=== PATIENT | male | born 1965 | race Caucasian/White ===

== ENCOUNTER 2022-09-28 15:00 | Inpatient (IN) | payer MEDICARE, OTHER ==
[2022-09-28] MEDS ORDERED: SODIUM CHLORIDE 0.9% 1,000 ML IV STA (15:03)
[2022-09-28] MEDS ORDERED: MIDAZOLAM 1 MG/ML 5 ML VIAL IV STA (15:14)
[2022-09-28] MEDS ORDERED: ROCURONIUM 10 MG/ML (5 ML VIAL) IV STA (15:15)
[2022-09-28] MEDS ORDERED: ETOMIDATE 2 MG/ML 10 ML VIAL IVP STA (15:15)
[2022-09-28] MEDS ORDERED: NOREPINEPHRINE 4 MG in SODIUM CHLORIDE 0.9% 250 ML IV ONE ×2 (15:21→21:05)
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
[2022-09-28 15:22] LABS: Basophils # (A) 0.1 k/uL (0-0.2); Basophils % (A) 1 %; Eosinophils # (A) 0.2 k/uL (0-0.7); Eosinophils % (A) 2 %; HCT 45.5 % (39.0-53.0); HGB 14.8 gm/dL (13.0-17.5); Lymphocytes # (A) 2.3 k/uL (1.0-4.8); Lymphocytes % (A) 26 %; MCH 31.9 pg (25.0-35.0); MCHC 32.6 g/dL (31.0-37.0); MCV 97.8 fL (80.0-100.0); Mean Platelet Volume 9.6; Monocytes # (A) 0.6 k/uL (0-1.0); Monocytes % (A) 6 %; Neutrophils # (A) 5.7 k/uL (1.3-7.7); Neutrophils % (A) 64 %; Platelet Count 194 k/uL (150-450); RBC 4.65 m/uL (4.30-5.90); RDW 13.1 % (11.5-15.5)
[2022-09-28] MEDS ORDERED: fentaNYL (PF) 50 MCG/ML 2 ML AMP IVP STA (15:37)
[2022-09-28 15:38] LABS: Prothrombin Time 10.8 sec (9.0-12.0)
[2022-09-28 15:41] LABS: Appearance,Urine Clear (Clear); Bilirubin,Urine Negative (Negative); Blood,Urine Negative (Negative); Color,Urine Yellow; Glucose,Urine (UA) Negative (Negative); Hyaline Casts,Urine 1 /lpf (0-2); Ketones,Urine Negative (Negative); Leukocyte Esterase,Urine Negative (Negative); Mucus,Urine Rare /hpf; Nitrite,Urine Negative (Negative); Protein,Urine 2+ (Negative); RBC,Urine 3 /hpf (0-5); Specific Gravity,Urine 1.016 (1.001-1.035); WBC,Urine 1 /hpf (0-5)
[2022-09-28 15:45] LABS: ALT 21 U/L (4-49); AST 26 U/L (17-59); African American GFR (CKD) 28 (>60 ml/min/1.73 sqM); Albumin 4.2 g/dL (3.5-5.0); Alkaline Phosphatase 81 U/L (38-126); Anion Gap 12 mmol/L; Blood Urea Nitrogen 33 mg/dL (9-20); Calcium 9.2 mg/dL (8.4-10.2); Carbon Dioxide 23 mmol/L (22-30); Chloride 102 mmol/L (98-107); Creatine Kinase 116 U/L (55-170); Glucose 133 mg/dL (74-99); Magnesium 1.2 mg/dL (1.6-2.3); Non-African American GFR(CKD) 24 (>60 ml/min/1.73 sqM); Potassium 5.5 mmol/L (3.5-5.1); Sodium 137 mmol/L (137-145); Total Bilirubin 0.9 mg/dL (0.2-1.3); Total Protein 6.6 g/dL (6.3-8.2)
--- NOTE | 2022-09-28 15:46 | XR ---
EXAMINATION TYPE: XR chest 1V portable DATE OF EXAM: 09/28/2022 COMPARISON: Prior chest and rib x-rays 2012 HISTORY: Shortness of breath had to be intubated. TECHNIQUE: Single frontal supine view of the chest is obtained. FINDINGS: There is new orogastric tube projecting below diaphragm. There is new endotracheal tube te rminating at superior aortic knob level approximately 4.0 cm above the keily. Lungs remain clear. Ca rdiac silhouette size remains within normal limits. There is subacute or old left lateral eighth rib fracture now seen. IMPRESSION: 1. New endotracheal and orogastric tubes are satisfactory in position. 2. No acute cardiopulmonary process.
[2022-09-28] MEDS ORDERED: DEXTROSE 50% SYRINGE 50 ML IVP ONE (15:47)
[2022-09-28] MEDS ORDERED: CALCIUM GLUCONATE IN NACL 1 GM in SALINE 1 100ML.BAG IVPB ONE (15:47)
[2022-09-28] MEDS ORDERED: INSULIN REGULAR 100 UNIT/ML VIAL (IV) IV ONE (15:47)
[2022-09-28 15:51] LABS: Amphetamine Screen,Urine Not Detected (NotDetected); Barbiturate Screen,Urine Not Detected (NotDetected); Benzodiazepines Screen,Urine Detected (NotDetected); Cocaine Screen,Urine Not Detected (NotDetected); Methadone Screen, Urine Not Detected (NotDetected); Opiate Screen,Urine Not Detected (NotDetected); Oxycodone Screen, Urine Not Detected (NotDetected); Phencyclidine Screen,Urine Not Detected (NotDetected); Tricyclic Antidepressant,Urine Detected (NotDetected); Urn Cannabinoid Scrn Detected (NotDetected)
--- NOTE | 2022-09-28 15:59 | CT ---
EXAMINATION TYPE: CT brain wo con CT DLP: 1070.4 mGycm, Automated exposure control for dose reduction was used. DATE OF EXAM: 09/28/2022 3:52 PM COMPARISON: None. CLINICAL INDICATION:Male, 57 years old with history of Neuro deficit, acute, stroke suspected, ams, u nresponsive TECHNIQUE: Brain: Axial CT images of the brain were obtained with coronal and sagittal reformats created and rev iewed. Contrast used: None. Oral contrast used: None. FINDINGS: Brain: Extra-axial spaces: No abnormal extra-axial fluid collections. Ventricular system: Within normal limits Cerebral parenchyma: There is vasogenic edema involving the left parietal region with cytotoxic edema involving the left frontal lobe. Additional vasogenic edema within the right frontal lobe. There is hyperdense gyriform cortex of the left parietal region and to a lesser extent the left frontal region . The remainder of the tam-white junctions are well differentiated. Cerebellum: Unremarkable. Mass effect: No evidence of midline shift. Intracranial vasculature: Atherosclerotic calcifications of the intracranial vessels. Soft tissues: Normal. Calvarium/osseous structures: No depressed skull fracture. Paranasal sinuses and mastoid air cells: Mild scattered paranasal sinus disease. Visualized orbits: Orbital contents are intact. IMPRESSION: Findings suggest acute/subacute CVA involving the left frontal, left parietal and possibly the right frontal lobes. 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 Furthe r evaluation with MRI is recommended.
[2022-09-28 16:06] LABS: Partial Thromboplastin Time 21.2 sec (22.0-30.0)
[2022-09-28] MEDS ORDERED: DOPamine DRIP 800 MG in DEXTROSE/WATER 1 250ML.BAG IV ONE ×2 (16:48→21:07)
[2022-09-28] MEDS ORDERED: NALOXONE 0.4 MG/ML 1 ML VIAL IV PRN (16:58)
[2022-09-28] MEDS: MAGNESIUM SULFATE-D5W PMX 1 GM in DEXTROSE/WATER 1 100ML.BAG IVPB SCH ×2 (17:41→19:35)
--- NOTE | 2022-09-28 18:35 | XR ---
EXAMINATION TYPE: XR chest 1V confirm line [facility] DATE OF EXAM: 09/28/2022 HISTORY: Shortness of breath. COMPARISON: 09/28/2022 TECHNIQUE: Single view of the chest is submitted. FINDINGS: Endotracheal tube and NG tube are unchanged in position. Right IJ central venous line with its distal tip overlying the SVC. No evidence for pneumothorax. Increased density at the lung bases may reflect atelectasis or developing infiltrate. The heart is stable. Hilar and mediastinal structures are within normal limits. Degenerative changes are seen of the dorsal spine. IMPRESSION: 1. Indwelling tubes and catheters as noted.
[2022-09-28 18:57] LABS: Glucose,Whole Blood 193 mg/dL (70-110)
--- NOTE | 2022-09-28 19:37 | XR ---
EXAMINATION TYPE: XR chest 1V portable DATE OF EXAM: 09/28/2022 COMPARISON: Same day study HISTORY: SOB, Follow Up FINDINGS: Indwelling tubes and catheters are unchanged. The lungs appear to be clear at this time. Stable appearance of the cardio-mediastinal structures at this time. IMPRESSION: 1. Stable portable chest. Clinical correlation and follow up until resolution is recommended.
[2022-09-28] MEDS ORDERED: DEXAMETHASONE SOD PHOSPHATE 4 MG/ML 1 ML VIAL IVP PRN (19:42)
[2022-09-28] MEDS ORDERED: ATROPINE SULFATE 0.1 MG/ML 10ML SYRINGE ONE (20:07)
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
[2022-09-28 20:22] LABS: ABG Base Excess -1.3 mmol/L; ABG HCO3 24 mmol/L (21-25); ABG Oxygen Saturation 99.6 % (94-97); ABG PCO2 44 mmHg (35-45); ABG PH 7.35 (7.35-7.45); ABG PO2 >400 mmHg (83-108); ABG TCO2 26 mmol/L (19-24); Allen Test Performed? Yes
[2022-09-28 20:49] LABS: Basophils # (A) 0.1 k/uL (0-0.2); Basophils % (A) 1 %; Eosinophils # (A) 0.4 k/uL (0-0.7); Eosinophils % (A) 3 %; HGB 15.7 gm/dL (13.0-17.5); Lymphocytes # (A) 2.2 k/uL (1.0-4.8); Lymphocytes % (A) 19 %; MCH 32.5 pg (25.0-35.0); MCHC 33.3 g/dL (31.0-37.0); MCV 97.3 fL (80.0-100.0); Monocytes # (A) 0.7 k/uL (0-1.0); Monocytes % (A) 6 %; Neutrophils # (A) 7.9 k/uL (1.3-7.7); Neutrophils % (A) 69 %; Platelet Count 201 k/uL (150-450); RBC 4.83 m/uL (4.30-5.90); RDW 13.2 % (11.5-15.5); WBC 11.3 k/uL (3.8-10.6)
[2022-09-28 21:01] LABS: ALT 19 U/L (4-49); AST 27 U/L (17-59); African American GFR (CKD) 32 (>60 ml/min/1.73 sqM); Albumin 4.4 g/dL (3.5-5.0); Alkaline Phosphatase 78 U/L (38-126); Anion Gap 10 mmol/L; Blood Urea Nitrogen 35 mg/dL (9-20); Calcium 9.4 mg/dL (8.4-10.2); Carbon Dioxide 23 mmol/L (22-30); Chloride 103 mmol/L (98-107); Glucose 152 mg/dL (74-99); Magnesium 2.2 mg/dL (1.6-2.3); Non-African American GFR(CKD) 28 (>60 ml/min/1.73 sqM); Phosphorus 4.6 mg/dL (2.5-4.5); Potassium 4.5 mmol/L (3.5-5.1); Sodium 136 mmol/L (137-145); Total Protein 6.9 g/dL (6.3-8.2)
[2022-09-28 21:03] LABS: INR 0.9 (<1.2); Partial Thromboplastin Time 24.1 sec (22.0-30.0); Prothrombin Time 10.1 sec (9.0-12.0)
[2022-09-28] MEDS ORDERED: ATROPINE SULFATE 0.1 MG/ML 10ML SYRINGE IV ONE (21:04)
[2022-09-28] MEDS ORDERED: LIDOCAINE 1% INJ 10MG/ML (20 ML MDV) ONE (21:04)
[2022-09-28] MEDS ORDERED: LIDOCAINE 1% INJ 10MG/ML (5 ML VIAL-PF) SQ ONE (21:15)
[2022-09-28] MEDS ORDERED: SODIUM CHLORIDE 0.9% 1,000 ML IV ONE (21:17)
[2022-09-28] MEDS: CHLORHEXIDINE GLUCONATE 15 ML CUP MUCOUS MEM SCH (21:28)
[2022-09-28] MEDS ORDERED: LIDOCAINE 1% INJ 10MG/ML (20 ML MDV) SQ ONE (21:33)
[2022-09-28] MEDS: SODIUM CHLORIDE 0.9% 80 ML with fentaNYL (PF) 1,000 MCG IV SCH ×2 (22:30)
--- NOTE | 2022-09-28 22:51 | CONS ---
CONSULTATION HISTORY OF PRESENT ILLNESS: Mitch is a 57-year-old gentleman with history of alcohol abuse, prior history of smoking, who presented to hospital having being brought in by his family. He normally gets around using the cane and sometimes a wheelchair. Apparently, short-term memory is not good. He has significant history of alcohol abuse. His son's girlfriend went to check on him today, found him slumped over, unresponsive, not feeling well. Family has not seen him at 6 p.m. the day before. At that time, he was fine. It is unclear if the patient has taken too many of his medications. EMS was called. They found him to be profoundly hypotensive at 76/38 and the heart rate was low at 30 beats per minute. He came to the ER where he had external pacing on and initially was started on Levophed, which brought his blood pressure up. I evaluated him in the emergency room. Without the external pacer, the heart rate was in the 40 beats per minute and he was maintaining his own blood pressure. I picked him on 2.5 mcg of dopamine and asked him to use Levophed as needed. Subsequently, I received a phone call from the ICU stating that the patient's heart rate was persistently dropping into the 30s and the patient was significantly hypotensive. Due to this, I decided to do a temporary transvenous pacemaker on him. He received 1 mg of atropine by the time I arrived in the ICU and he is in junctional rhythm with a heart rate of 50 beats per minute. His blood pressure is well maintained on dopamine at 10 mcg. On dropping the dopamine 7.5 to 5 mcg, he is becoming bradycardic and hypotensive. A CT scan of the head revealed acute CVA involving left frontal, parietal and to some extent the right frontal lobe. This is suggestive of left hemispheric infarct. His EKG shows sinus bradycardia with a heart rate of 36 beats per minute and prolonged QT interval. His labs showed that the potassium is 5.5, BUN is 33, creatinine is 2.7, hemoglobin is 14.8. His drug screen is positive for tricyclic antidepressants, benzodiazepines and marijuana. I spoke to the family in the ICU and told him that I will attempt to do a temporary transvenous pacemaker. They understand that his prognosis is very poor. PHYSICAL EXAMINATION: GENERAL: At the time of my evaluation, the patient is intubated and on vent. VITAL SIGNS: Heart rate is around 52 beats per minute. Blood pressure is 140s/70. CHEST: Reveals diminished air entry bilaterally. HEART: Reveals first and second heart sounds. No gallop. I do not hear any murmurs. ABDOMEN: Soft. EXTREMITIES: Exam of extremities reveals mild edema. Peripheral pulses are not easily palpable. ASSESSMENT AND PLAN: 1. Large cerebrovascular accident. 2. Vent requiring respiratory failure. 3. Symptomatic bradycardia. PLAN: I am going to do a temporary transvenous pacemaker. Continue the dopamine at this time. Prognosis is poor. I will obtain a 2D echo in the morning. I spoke to the patient's daughter and son, and explained to them the patient's condition. The patient at home was on multiple medications including clonidine, Tenormin, metformin, allopurinol, lisinopril, atorvastatin, temazepam, Seroquel and cyclobenzaprine and [place]. It is unclear what if any of these medications he has taken. MMODL / IJN: [id number] /
--- NOTE | 2022-09-28 22:57 | CC ---
CARDIAC CATHETERIZATION REPORT PROCEDURE PERFORMED: Temporary transvenous pacemaker. INDICATION: Symptomatic bradycardia. PROCEDURE NOTE: After obtaining informed consent, a temporary transvenous pacemaker was floated into the right ventricle via the right femoral vein. The right femoral venous access was obtained using Seldinger technique, and a 6-Mongolian sheath was placed and temporary transvenous pacemaker was floated under fluoroscopic guidance uneventfully. Adequate pacing and sensing thresholds were obtained. Procedure was completed uneventfully. PROCEDURE PERFORMED: Femoral arterial line placement. INDICATION: To monitor blood pressures in a critically ill patient. PROCEDURE NOTE: After obtaining informed consent, right femoral arterial access was obtained using Seldinger technique. A 6-Mongolian sheath was placed. The femoral arterial line will be used for hemodynamics monitoring. MMODL / IJN: [id number] /
[2022-09-29] MEDS ORDERED: SODIUM CHLORIDE 0.9% 1,000 ML IV ONE ×3 (01:58→08:52)
[2022-09-29] MEDS: SODIUM CHLORIDE 0.9% 1,000 ML IV SCH ×2 (02:00→17:31)
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
[2022-09-29] MEDS ORDERED: LORazepam 2 MG/ML INJ ONE (03:39)
[2022-09-29] MEDS ORDERED: levETIRAcetam IV 500 MG/5 ML VIAL IVP STA ×2 (03:53→17:25)
[2022-09-29 04:43] LABS: Basophils # (A) 0.1 k/uL (0-0.2); Basophils % (A) 1 %; Eosinophils # (A) 0.2 k/uL (0-0.7); Eosinophils % (A) 2 %; HCT 43.4 % (39.0-53.0); HGB 14.6 gm/dL (13.0-17.5); Lymphocytes # (A) 2.1 k/uL (1.0-4.8); Lymphocytes % (A) 19 %; MCH 31.6 pg (25.0-35.0); MCHC 33.6 g/dL (31.0-37.0); MCV 94.1 fL (80.0-100.0); Mean Platelet Volume 9.8; Monocytes # (A) 0.8 k/uL (0-1.0); Monocytes % (A) 7 %; Neutrophils # (A) 7.8 k/uL (1.3-7.7); Neutrophils % (A) 70 %; Platelet Count 185 k/uL (150-450); RBC 4.61 m/uL (4.30-5.90); RDW 13.5 % (11.5-15.5)
[2022-09-29 04:50] LABS: African American GFR (CKD) 50 (>60 ml/min/1.73 sqM); Anion Gap 9 mmol/L; Blood Urea Nitrogen 30 mg/dL (9-20); Calcium 8.7 mg/dL (8.4-10.2); Carbon Dioxide 21 mmol/L (22-30); Chloride 108 mmol/L (98-107); Glucose 107 mg/dL (74-99); Non-African American GFR(CKD) 43 (>60 ml/min/1.73 sqM); Potassium 4.1 mmol/L (3.5-5.1); Sodium 138 mmol/L (137-145)
[2022-09-29 06:10] LABS: Glucose,Whole Blood 108 mg/dL (70-110)
[2022-09-29 06:36] LABS: ABG HCO3 22 mmol/L (21-25); ABG Oxygen Saturation 99.1 % (94-97); ABG PCO2 39 mmHg (35-45); ABG PH 7.37 (7.35-7.45); ABG PO2 146 mmHg (83-108); ABG TCO2 24 mmol/L (19-24); Allen Test Performed? Yes
--- NOTE | 2022-09-29 07:12 | XR ---
EXAMINATION TYPE: XR chest 1V portable DATE OF EXAM: 09/29/2022 5:44 AM COMPARISON: Chest radiographs from 09/28/2022 TECHNIQUE: XR chest 1V portable Frontal view of the chest. CLINICAL INDICATION:Male, 57 years old with history of Tube placement; FINDINGS: Lungs/Pleura: There is no evidence of pleural effusion, focal consolidation, or pneumothorax. Pulmonary vascularity: Unremarkable. Heart/mediastinum: Cardiomediastinal silhouette is unremarkable. Musculoskeletal: No acute osseous pathology. Other findings: None Lines/Tubes: Endotracheal tube with distal tip 5.8 cm above the keily. Nasogastric tube with its distal tip and side-port projecting under the diaphragm. Right internal jugular central venous catheter with distal tip at the cavoatrial junction. IMPRESSION: Support tubes and line in satisfactory position.
[2022-09-29] MEDS: PANTOPRAZOLE 40 MG/10 ML VIAL IV SCH (08:15)
[2022-09-29] MEDS: CHLORHEXIDINE GLUCONATE 15 ML CUP MUCOUS MEM SCH ×2 (08:15→20:45)
[2022-09-29] MEDS: HEPARIN SODIUM,PORCINE/PF 5,000 UNIT/0.5 ML SYRINGE SQ SCH ×2 (08:15→20:46)
[2022-09-29 08:43] LABS: LDL Cholesterol,Calculated 27.3 mg/dL (0.0-131.0)
--- NOTE | 2022-09-29 09:13 | US ---
EXAMINATION TYPE: US carotid duplex BILAT DATE OF EXAM: 09/29/2022 Exam done portable in ICU COMPARISON: NONE CLINICAL INDICATION: Male, 57 years old with history of CVA; TECHNIQUE: Carotid duplex ultrasound examination. Indirect Doppler criteria was utilized. FINDINGS: EXAM MEASUREMENTS: RIGHT: Peak Systolic Velocity (PSV) cm/sec ----- Right CCA: 66.4 ----- Right ICA: 105.9 ----- Right ECA: 66.9 ICA/CCA ratio: 1.6 RIGHT: End Diastole cm/sec ----- Right CCA: 10.4 ----- Right ICA: 25.5 ----- Right ECA: 5.4 LEFT: Peak Systolic Velocity (PSV) cm/sec ----- Left CCA: 50.4 ----- Left ICA: 98.8 ----- Left ECA: 137.3 ICA/CCA ratio: 2.0 LEFT: End Diastole cm/sec ----- Left CCA: 10.0 ----- Left ICA: 30.9 ----- Left ECA: 21.6 VERTEBRALS (direction of flow): Right Vertebral: Antegrade Left Vertebral: Antegrade Rhythm: Normal Right bulb and proximal ICA and ECA obscured by bandage Left ICA/CCA ratio: 2.0 IMPRESSION: Less than 50% stenosis of the bilateral carotid bifurcations. Criteria for Assigning % of Stenosis / Diameter reduction (Estimation based on the indirect measurements of the internal carotid artery velocities (ICA PSV). 1. Normal (no stenosis)=ICA PSV < 125 cm/s: ratio < 2.0: ICA EDV<40 cm/s. 2. Less than 50% stenosis=ICA PSV < 125 cm/s: ratio < 2.0: ICA EDV<40 cm/s. 3. 50 to 69% stenosis=ICA PSV of 125 to 230 cm/s: ration 2.0 ? 4.0: ICA EDV 40-100 cm/s. 4. Greater than 70% stenosis to near occlusion= ICA PSV > 230 cm/s: ratio > 4.0: ICA EDV > 100 cm/s. 5. Near occlusion= ICA PSV velocities may be low or undetectable: variable ratio and ICA EDV. 6. Total occlusion=unable to detect flow.
--- NOTE | 2022-09-29 09:35 | PN ---
PROGRESS NOTE SUBJECTIVE: Mitch is a 57-year-old gentleman who is admitted to hospital with CVA, symptomatic bradycardia, and respiratory failure. He is intubated and on vent. Last night developed symptomatic bradycardia and underwent temporary transvenous pacemaker. This morning, the pacemaker is functioning normally and he is still using the pacemaker quite a bit. I decreased the heart rate to 50 beats per minute. I also placed a right femoral arterial catheter for blood pressure monitoring. He had a seizure which is currently being managed by the neurologist. OBJECTIVE: GENERAL: He is intubated on vent, sedated. VITAL SIGNS: Stable. CHEST: Exam reveals good air entry bilaterally. HEART: Exam reveals first and second heart sounds. No gallop. No murmur. ABDOMEN: Soft. EXTREMITIES: Did not reveal any edema. Peripheral pulses are not palpable. LABORATORY DATA: Labs show that his blood gases show a pH of 7.3, pO2 of 146, pCO2 of 59. His potassium had come down to 4.1, BUN is 30, creatinine is 1.7. Creatinine has improved compared to where we were. ASSESSMENT: 1. Vent requiring respiratory failure. 2. Cerebrovascular accident. 3. History of ETOH abuse and prior history of drug abuse. 4. Symptomatic bradycardia. PLAN: The patient will continue with the temporary transvenous pacemaker. Prognosis is guarded. If he improves in his stroke symptoms and if his clinical condition gets better, we may consider doing a transesophageal echo. We will follow the echo results that were done this morning. NOLVIA / NATHALIEN: [id number] /
--- NOTE | 2022-09-29 09:51 | CA ---
Transthoracic Echo Report Name: Mitch Marrero Age: 57 Gender: M : 1965 Exam Date: 09/29/2022 08:28 Exam Location: [facility] Ht (in): Wt (lb): Ordering Physician: Cash Trammell MD Attending/Referring Phys: Sleeve Maker Dean Rasmussen Procedure CPT: Indications: CVA Cardiac Hx: Technical Quality: Technically difficult study Contrast 1: Total Dose (mL): Contrast 2: Total Dose (mL): MEASUREMENTS (Male / Female) Normal Values 2D ECHO LV Diastolic Diameter PLAX 4.9 cm 4.2 - 5.9 / 3.9 - 5.3 cm LV Systolic Diameter PLAX 3.5 cm IVS Diastolic Thickness 1.1 cm 0.6 - 1.0 / 0.6 - 0.9 cm LVPW Diastolic Thickness 1.1 cm 0.6 - 1.0 / 0.6 - 0.9 cm LV Relative Wall Thickness 0.4 RV Internal Dim ED PLAX 2.8 cm LVOT Diameter 2.0 cm Aortic Root Diameter 2.8 cm LA Systolic Diameter LX 2.5 cm 3.0 - 4.0 / 2.7 - 3.8 cm LV Diastolic Volume MOD BP 55.4 cm??? 67 - 155 / 56 - 104 cm??? LV Systolic Volume MOD BP 23.5 cm??? 22 - 58 / 19 - 49 cm??? LV Ejection Fraction MOD BP 57.6 % >= 55 % LV Diastolic Volume MOD 4C 79.2 cm??? LV Systolic Volume MOD 4C 34.4 cm??? LV Ejection Fraction MOD 4C 56.5 % LV Diastolic Length 4C 6.9 cm LV Systolic Length 4C 6.5 cm LV Diastolic Volume MOD 2C 35.6 cm??? LV Systolic Volume MOD 2C 14.0 cm??? LV Ejection Fraction MOD 2C 60.6 % LV Diastolic Length 2C 6.3 cm LV Systolic Length 2C 5.7 cm LA Volume 41.3 cm??? 18 - 58 / 22 - 52 cm??? DOPPLER AV Peak Velocity 127.8 cm/s AV Peak Gradient 6.5 mmHg LVOT Peak Velocity 81.4 cm/s LVOT Peak Gradient 2.7 mmHg AV Area Cont Eq pk 2.1 cm??? FINDINGS Left Ventricle Ventricular septal hypokenesis. Normal LV size, Normal wall thickness, left ventricular ejection fraction is estimated at 50-55 %. Right Ventricle Normal right ventricular size. Right Atrium Normal right atrial size. Left Atrium Normal left atrial size. Mitral Valve Structurally normal mitral valve. Trace MR. Aortic Valve Aortic valve not well visualized. No aortic valve stenosis or regurgitation. Tricuspid Valve Structurally normal tricuspid valve. Trace TR. Pulmonic Valve Pulmonic valve not well visualized. No pulmonic regurgitation. Pericardium Normal pericardium. Aorta Aorta at the level of the sinotubular junction normal. CONCLUSIONS Scanned Supine. Paced rhythm preserved LV systolic function. Limited Doppler study no significant abnormalities. No pericardial effusion Previewed by: Dr. Jennifer Hays MD (Electronically Signed) Final Date: 29 September 2022 09:50
[2022-09-29 11:14] LABS: Glucose,Whole Blood 98 mg/dL (70-110)
[2022-09-29] MEDS: NOREPINEPHRINE 4 MG in SODIUM CHLORIDE 0.9% 250 ML IV SCH (15:00)
--- NOTE | 2022-09-29 15:41 | P.PN ---
Subjective Progress Note Date: 09/29/22 I'm seeing the patient for the first time during this admission. Please refer to Dr. Trammell's note for further details. It seems the patient was found unresponsive hypotensive and was felt to have hypoxic ischemic encephalopathy. Also was found the patient was to have acute ischemic stroke with left hemispheric region mainly involving watershed territory. Overnights around 3:30 AM per the nurse the was felt he had seizure-like activity left side more than the right side was shaken and the patient was placed on the Keppra by Dr. Trammell. Per the nurse no further seizure-like activity noted that. Patient is intubated on a ventilator and is on IV propofol and fentanyl Objective - Vital Signs Vital signs: Vital Signs Temp 98.1 F 09/29/22 12:00 Pulse 49 L 09/29/22 15:00 Resp 16 09/29/22 15:00 BP 103/62 09/28/22 22:51 Pulse Ox 99 09/29/22 15:00 FiO2 40 09/29/22 14:00 Intake & Output 09/28/22 09/29/22 09/29/22 18:59 06:59 18:59 Intake Total 15.070 9207.808 8453.465 Output Total 925 1125 Balance 15.070 514.080 902.465 Weight 71.668 kg 77 kg 77.1 kg Intake: IV 1105 1815 0.9 KVO 70 90 ARTERIAL LINE 27 27 CVP 27 24 Magnesium Sulfate-D5w Pmx 100 1 gm In Dextrose/Water 1 100ml.bag @ 100 mls/hr IVPB Q1H [facility] Rx#: [id number] Sodium Chloride 0.9% 1, 375 675 000 ml @ 75 mls/hr IV . [id number] [facility] Rx#:[id number] Sodium Chloride 0.9% 1, 999 000 ml @ 999 mls/hr IV . Q1H1M [facility] Rx#:[id number] Intake, IV Titration 15.070 334.080 212.465 Amount DOPamine DRIP 800 mg In 32.043 Dextrose/Water 1 250ml. bag @ 5 MCG/KG/MIN 6.719 mls/hr IV .Q24H [facility] Rx#: [id number] Norepinephrine 4 mg In 7.509 75.867 37.956 Sodium Chloride 0.9% 250 ml @ 0.03 MCG/KG/MIN 8. 192 mls/hr IV .Q24H [facility] Rx#:[id number] propofoL 1,000 mg In 7.561 226.170 174.509 Empty Bag 1 bag @ 15 MCG/ KG/MIN 6.45 mls/hr IV . [id number] [facility] Rx#:[id number] Output: Gastric Drainage 600 Urine 925 525 Other: Voiding Method Indwelling Catheter Indwelling Catheter ABP, PAP, CO, CI - Last Documented Arterial Blood Pressure 104/46 - Exam General: Laying in bed and does not appear in acute distress Lung: Intubated on ventilator. Neuro: Limited since on IV sedation (IV Propofol 50mcg/kg/min and IV fentanyl 0.5mcg/kg/hr). Pupils are 2mm and reactive to light. Primary gaze is midline. No facial droop. Intact gag reflex. Is breathing at vent. Strength is limited. - Labs CBC & Chem 7: 09/29/22 04:30 09/29/22 04:30 Labs: Abnormal Lab Results - Last 24 Hours (Table) 09/28/22 09/28/22 09/28/22 Range/Units 15:11 15:11 15:11 WBC (3.8-10.6) k/uL Neutrophils # (1.3-7.7) k/uL APTT 21.2 L (22.0-30.0) sec ABG pO2 (83-108) mmHg ABG Total CO2 (19-24) mmol/L ABG O2 Saturation (94-97) % Sodium (137-145) mmol/L Potassium 5.5 H (3.5-5.1) mmol/L Chloride (98-107) mmol/L Carbon Dioxide (22-30) mmol/L BUN 33 H (9-20) mg/dL Creatinine 2.74 H (0.66-1.25) mg/dL Glucose 133 H (74-99) mg/dL POC Glucose (mg/dL) (70-110) mg/dL Phosphorus (2.5-4.5) mg/dL Magnesium 1.2 L (1.6-2.3) mg/dL Triglycerides (0.00-149.00) mg/dL HDL Cholesterol (40.00-60.00) mg/dL Urine Protein 2+ H (Negative) Urine Mucus Rare H (None) /hpf U Tricyclic Antidepress Detected H (NotDetected) U Benzodiazepines Scrn Detected H (NotDetected) U Marijuana (THC) Screen Detected H (NotDetected) 09/28/22 09/28/22 09/28/22 Range/Units 18:55 20:20 20:38 WBC (3.8-10.6) k/uL Neutrophils # (1.3-7.7) k/uL APTT (22.0-30.0) sec ABG pO2 >400 H (83-108) mmHg ABG Total CO2 26 H (19-24) mmol/L ABG O2 Saturation 99.6 H (94-97) % Sodium 136 L (137-145) mmol/L Potassium (3.5-5.1) mmol/L Chloride (98-107) mmol/L Carbon Dioxide (22-30) mmol/L BUN 35 H (9-20) mg/dL Creatinine 2.46 H (0.66-1.25) mg/dL Glucose 152 H (74-99) mg/dL POC Glucose (mg/dL) 193 H (70-110) mg/dL Phosphorus 4.6 H (2.5-4.5) mg/dL Magnesium (1.6-2.3) mg/dL Triglycerides (0.00-149.00) mg/dL HDL Cholesterol (40.00-60.00) mg/dL Urine Protein (Negative) Urine Mucus (None) /hpf U Tricyclic Antidepress (NotDetected) U Benzodiazepines Scrn (NotDetected) U Marijuana (THC) Screen (NotDetected) 09/28/22 09/29/22 09/29/22 Range/Units 20:38 04:30 04:30 WBC 11.3 H 11.0 H (3.8-10.6) k/uL Neutrophils # 7.9 H 7.8 H (1.3-7.7) k/uL APTT (22.0-30.0) sec ABG pO2 (83-108) mmHg ABG Total CO2 (19-24) mmol/L ABG O2 Saturation (94-97) % Sodium (137-145) mmol/L Potassium (3.5-5.1) mmol/L Chloride 108 H (98-107) mmol/L Carbon Dioxide 21 L (22-30) mmol/L BUN 30 H (9-20) mg/dL Creatinine 1.71 H (0.66-1.25) mg/dL Glucose 107 H (74-99) mg/dL POC Glucose (mg/dL) (70-110) mg/dL Phosphorus (2.5-4.5) mg/dL Magnesium (1.6-2.3) mg/dL Triglycerides 191.00 H (0.00-149.00) mg/dL HDL Cholesterol 28.50 L (40.00-60.00) mg/dL Urine Protein (Negative) Urine Mucus (None) /hpf U Tricyclic Antidepress (NotDetected) U Benzodiazepines Scrn (NotDetected) U Marijuana (THC) Screen (NotDetected) 09/29/22 Range/Units 06:32 WBC (3.8-10.6) k/uL Neutrophils # (1.3-7.7) k/uL APTT (22.0-30.0) sec ABG pO2 146 H (83-108) mmHg ABG Total CO2 (19-24) mmol/L ABG O2 Saturation 99.1 H (94-97) % Sodium (137-145) mmol/L Potassium (3.5-5.1) mmol/L Chloride (98-107) mmol/L Carbon Dioxide (22-30) mmol/L BUN (9-20) mg/dL Creatinine (0.66-1.25) mg/dL Glucose (74-99) mg/dL POC Glucose (mg/dL) (70-110) mg/dL Phosphorus (2.5-4.5) mg/dL Magnesium (1.6-2.3) mg/dL Triglycerides (0.00-149.00) mg/dL HDL Cholesterol (40.00-60.00) mg/dL Urine Protein (Negative) Urine Mucus (None) /hpf U Tricyclic Antidepress (NotDetected) U Benzodiazepines Scrn (NotDetected) U Marijuana (THC) Screen (NotDetected) Microbiology - Last 24 Hours (Table) 09/28/22 15:56 Gram Stain - Preliminary Sputum Assessment and Plan Assessment: * Patient found unresponsive, hypotensive, 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 Smaller area of acute ischemia also noticeable in the right frontal watershed region as well. Patient was not a TPA candidate because of last known well > 12 hours. * New onset reported Seizure (at [address]am on 09/26/2022) and was told has jerking of left > right arm--stable. 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 * EEG is pending * Carotid Doppler: Less than 50% stenosis bilateral carotid bifurcation. * 2-D echo: Reported as patient rhythm preserved left ventricular systolic function. Limited the Doppler study no significant abnormality. No pe ricardial effusion. * Fasting a.m. lipid panel: Triglyceride is 191, cholesterol is 94, LDLs 27 HDL is 28. * hemoglobin A1c: 6.0. * Suggest starting aspirin 81 mg daily, if no medical contraindications. * Neurology will follow clinically as well. * Other management as per critical care, IM and other specialties. UPDATE: Preliminary routine EEG: Is abnormal. The background slowing is suggestive of mild to moderate encephalopathy. No seizure or discharges are noted. The later in very late afternoon, Per nurse he had at least [address] head and lasted few minutes. So gave him total of 4mg Ativan and loaded with Keppra 1gm once, increased standing Keppra from 500mg to 1000mg every 12 hours. If continues to seizure, will give another 4mg Ativan and started Versed drip. I will repeat EEG for tomorrow and if has any further clinical seizures today and cannot be controlled then recommend transfer for senior care EEG. The plan was discussed with the patient's daughter was at bedside as well as her ICU nurse. Dr. Trammell will start neurology service tomorrow A.M. Time with Patient: Less than 30
[2022-09-29] MEDS ORDERED: levETIRAcetam IV 500 MG/5 ML VIAL IVP SCH (16:00)
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
--- NOTE | 2022-09-29 17:23 | CT ---
EXAMINATION TYPE: CT brain wo con DATE OF EXAM: 09/29/2022 COMPARISON: 09/28/2022 HISTORY: Stroke follow up CT DLP: 1201.[address] of the brain was performed. The ventricles, basal cisterns and sulci overlying the cerebral convexities demonstrate mild enlargem ent. Noted are areas of decreased attenuation within the left frontal parietal lobes compatible with acute /subacute CVA. Uniform hyperdensity process left parietal component. Small area of decreased attenuat ion right frontal lobe is also unchanged. There is no evidence for intracranial hemorrhage or sulcal effacement. There is decreased attenuation about the periventricular white matter and deep white matter of both c erebral hemispheres, compatible with chronic small vessel ischemia. Differential diagnosis does inclu de demyelination. No mass effects are seen.No midline shift. Osseous calvarium is intact. If symptoms persist consider MRI. IMPRESSION: 1. Evolution of left frontal lobe parietal acute/subacute CVA as discussed above. Small area of decre ased attenuation right frontal lobe noted as well is stable.
[2022-09-29] MEDS ORDERED: LORazepam 2 MG/ML INJ IV STA ×3 (17:24→17:50)
[2022-09-29] MEDS: SODIUM CHLORIDE 0.9% 80 ML with fentaNYL (PF) 1,000 MCG IV SCH ×2 (17:43)
[2022-09-29] MEDS: DOPamine DRIP 800 MG in DEXTROSE/WATER 1 250ML.BAG IV SCH ×2 (17:43→23:42)
[2022-09-29 18:16] LABS: Glucose,Whole Blood 95 mg/dL (70-110)
[2022-09-29] MEDS: MIDAZOLAM HCL 50 MG in SODIUM CHLORIDE 0.9% 40 ML IV SCH (18:22)
[2022-09-29] MEDS: levETIRAcetam IV 500 MG/5 ML VIAL IVP SCH (20:46)
--- NOTE | 2022-09-29 21:17 | EEG ---
ELECTROENCEPHALOGRAM REPORT EEG TYPE: A routine 21-channel EEG is performed with video using the 10/20 electrode placement system. RELEVANT MEDICATIONS: 1. Keppra. 2. IV propofol. 3. IV fentanyl. DESCRIPTION: The patient is intubated on a ventilator. The background consists of low voltage of 6 to 7 hertz activity. There is no physiological stage 2 sleep architecture. There is no focal slowing. Interictal and ictal is none. ACTIVATION PROCEDURE: Photic stimulation did not evoke a posterior driving response. There is no abnormality during the photic stimulation. Hyperventilation is not performed. CLINICAL INTERPRETATION: This is an abnormal routine EEG. The background slowing is suggestive of mild-to- moderate encephalopathy likely due to medication effect (propofol as well as fentanyl). Otherwise, there is no focal slowing, epileptiform discharge, or seizure on the EEG. Clinical correlation is recommended. NOLVIA / FRANDY: [id number] / MTDD
[2022-09-30 00:36] LABS: Glucose,Whole Blood 78 mg/dL (70-110)
[2022-09-30] MEDS: ACETAMINOPHEN IV (For NPO) 1,000 MG in EMPTY BAG 1 BAG IVPB PRN ×3 (01:40→21:00)
[2022-09-30] MEDS: MIDAZOLAM HCL 50 MG in SODIUM CHLORIDE 0.9% 40 ML IV SCH ×2 (02:31→17:04)
[2022-09-30] MEDS: SODIUM CHLORIDE 0.9% 1,000 ML IV SCH ×2 (04:01→17:05)
[2022-09-30 04:56] LABS: Basophils % (A) 0 %; Eosinophils # (A) 0.2 k/uL (0-0.7); Eosinophils % (A) 1 %; HGB 13.7 gm/dL (13.0-17.5); Lymphocytes # (A) 1.1 k/uL (1.0-4.8); Lymphocytes % (A) 8 %; MCH 31.7 pg (25.0-35.0); MCHC 33.3 g/dL (31.0-37.0); MCV 95.3 fL (80.0-100.0); Mean Platelet Volume 9.7; Monocytes # (A) 0.5 k/uL (0-1.0); Monocytes % (A) 4 %; Neutrophils # (A) 11.3 k/uL (1.3-7.7); Neutrophils % (A) 86 %; Platelet Count 157 k/uL (150-450); RDW 13.6 % (11.5-15.5); WBC 13.3 k/uL (3.8-10.6)
[2022-09-30 05:08] LABS: African American GFR (CKD) >90 (>60 ml/min/1.73 sqM); Anion Gap 9 mmol/L; Blood Urea Nitrogen 21 mg/dL (9-20); Calcium 8.4 mg/dL (8.4-10.2); Carbon Dioxide 19 mmol/L (22-30); Chloride 110 mmol/L (98-107); Glucose 86 mg/dL (74-99); Non-African American GFR(CKD) >90 (>60 ml/min/1.73 sqM); Potassium 4.1 mmol/L (3.5-5.1); Sodium 138 mmol/L (137-145)
[2022-09-30 05:47] LABS: ABG Base Excess -4.6 mmol/L; ABG HCO3 21 mmol/L (21-25); ABG PCO2 40 mmHg (35-45); ABG PH 7.34 (7.35-7.45); ABG PO2 79 mmHg (83-108); ABG TCO2 22 mmol/L (19-24)
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
[2022-09-30] MEDS: levETIRAcetam IV 500 MG/5 ML VIAL IVP SCH ×2 (08:57→20:26)
[2022-09-30] MEDS: HEPARIN SODIUM,PORCINE/PF 5,000 UNIT/0.5 ML SYRINGE SQ SCH ×2 (08:57→20:26)
[2022-09-30] MEDS: CHLORHEXIDINE GLUCONATE 15 ML CUP MUCOUS MEM SCH ×2 (08:57→20:26)
[2022-09-30] MEDS: PANTOPRAZOLE 40 MG/10 ML VIAL IV SCH (08:58)
[2022-09-30 11:50] LABS: Glucose,Whole Blood 121 mg/dL (70-110)
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
--- NOTE | 2022-09-30 14:17 | PN ---
PROGRESS NOTE HISTORY OF PRESENT ILLNESS: Mitch is a 57-year-old gentleman who was admitted to the hospital with CVA and vent requiring respiratory failure. Remains on vent without much significant spontaneous activity. Continues to have seizures on and off. He is intubated and sedated. He is in his own rhythm, is not requiring the use of temporary pacemaker. I am going to leave with him for now. PHYSICAL EXAMINATION: GENERAL: On exam, comfortable at rest. VITAL SIGNS: Stable. CHEST: Reveals diminished air entry at the bases. HEART: Reveals first and second heart sounds. No gallop. EXTREMITIES: Exam of extremities did not reveal any edema. LABORATORY DATA: Labs showed a hemoglobin of 13.7, potassium is 4.1, creatinine is 0.8. ASSESSMENT: 1. Vent requiring respiratory failure. 2. Symptomatic bradycardia, resolved. 3. Seizures. 4. Cerebrovascular accident. PLAN: The patient's prognosis is guarded. Continue with the supportive care. NOLVIA / FRANDY: [id number] /
[2022-09-30] MEDS: NOREPINEPHRINE 4 MG in SODIUM CHLORIDE 0.9% 250 ML IV SCH (17:03)
[2022-09-30] MEDS: CLEVIDIPINE BUTYRATE 25 MG in EMPTY BAG 1 BAG IV SCH ×3 (17:04→21:58)
[2022-09-30] MEDS: SODIUM CHLORIDE 0.9% 80 ML with fentaNYL (PF) 1,000 MCG IV SCH ×2 (20:21)
[2022-09-30] MEDS ORDERED: FUROSEMIDE 10 MG/ML 4 ML VIAL IV STA (21:10)
--- NOTE | 2022-09-30 22:54 | EEG ---
DATE OF SERVICE: 09/30/2022 ELECTROENCEPHALOGRAM REPORT PREAMBLE: This is a 57-year-old male who has history of altered mental status, CVA, and new onset seizure. This is a followup study. Current medication Keppra, midazolam, Protonix, propofol 60 mcg, titrating down just prior to the start of EEG and fentanyl. EEG FINDINGS: This is a 21-channel digital EEG recorded with video competent, utilizing 10/20 international system with referential and bipolar montages. Background consists of a presence of diffuse, low amplitude activity in mixed frequencies of theta in 6 to 7 hertz, mixed with delta range seen in bihemispheric region. There are periods of significant generalized suppression of the background periodically during the study. Response to eye opening or closing was not seen. No focal or generalized epileptiform activity was seen. IMPRESSION: This is an abnormal EEG due to background slowing and intermittent suppression suggestive of generalized encephalopathy, of moderate to severe degree. This can be seen with toxic metabolic causes, diffuse structural abnormality, or related to medication use. No epileptiform activity was seen in the entire study. When compared to the EEG from yesterday, the background seemed to be much more slow and more suppressed. MMODL / IJN: [id number] / [facility]
[2022-10-01] MEDS: CLEVIDIPINE BUTYRATE 25 MG in EMPTY BAG 1 BAG IV SCH ×8 (00:27→23:17)
[2022-10-01] MEDS: IPRATROPIUM-ALBUTEROL 3 ML NEB INHALATION PRN (00:33)
[2022-10-01] MEDS: HYDROmorphone 1 MG/ML 1 ML SYRINGE IVP PRN (00:35)
[2022-10-01] MEDS ORDERED: LORazepam 2 MG/ML INJ ONE (03:28)
[2022-10-01] MEDS ORDERED: LORazepam 2 MG/ML INJ IV STA ×2 (03:28→12:47)
[2022-10-01] MEDS: MIDAZOLAM HCL 50 MG in SODIUM CHLORIDE 0.9% 40 ML IV SCH ×6 (04:26→23:12)
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
[2022-10-01 05:37] LABS: ABG Base Excess -7.2 mmol/L; ABG HCO3 18 mmol/L (21-25); ABG Oxygen Saturation 94.8 % (94-97); ABG PCO2 32 mmHg (35-45); ABG PH 7.36 (7.35-7.45); ABG PO2 72 mmHg (83-108); ABG TCO2 19 mmol/L (19-24)
[2022-10-01 05:55] LABS: HCT 39.7 % (39.0-53.0); HGB 13.2 gm/dL (13.0-17.5); MCH 32.2 pg (25.0-35.0); MCHC 33.2 g/dL (31.0-37.0); Mean Platelet Volume 9.6; Platelet Count 141 k/uL (150-450); RBC 4.09 m/uL (4.30-5.90); RDW 13.5 % (11.5-15.5); WBC 14.7 k/uL (3.8-10.6)
[2022-10-01 05:58] LABS: African American GFR (CKD) >90 (>60 ml/min/1.73 sqM); Anion Gap 9 mmol/L; Blood Urea Nitrogen 17 mg/dL (9-20); Calcium 8.2 mg/dL (8.4-10.2); Carbon Dioxide 20 mmol/L (22-30); Chloride 111 mmol/L (98-107); Glucose 177 mg/dL (74-99); Non-African American GFR(CKD) >90 (>60 ml/min/1.73 sqM); Potassium 3.7 mmol/L (3.5-5.1); Sodium 140 mmol/L (137-145)
[2022-10-01 06:04] LABS: Glucose,Whole Blood 172 mg/dL (70-110)
[2022-10-01] MEDS: IPRATROPIUM-ALBUTEROL 3 ML NEB INHALATION SCH ×4 (08:05→20:22)
--- NOTE | 2022-10-01 08:35 | XR ---
EXAMINATION TYPE: XR chest 1V portable DATE OF EXAM: 09/28/2022 CLINICAL HISTORY: Difficulty breathing progress study. TECHNIQUE: Single AP portable semiupright view of the chest is obtained. COMPARISON: Chest x-ray from one day earlier and older studies. FINDINGS: Stable endotracheal and orogastric tubes. Stable right internal jugular central venous cat heter. Cardiac size stable and within normal limits. Worsening medial left basilar opacity. Stable patchy ri ght basilar opacity. There is old fracture of the left lateral eighth rib. IMPRESSION: Worsening medial left basilar acute infiltrate and/or atelectasis. Stable patchy right ba silar atelectasis and/or acute infiltrate.
[2022-10-01] MEDS: SODIUM CHLORIDE 0.9% 1,000 ML IV SCH ×2 (09:07→22:02)
--- NOTE | 2022-10-01 09:24 | P.PN ---
Subjective Progress Note Date: 09/30/22 Patient was seen for a follow-up. Patient is off Levophed and dopamine since this morning. Patient is on propofol 60 mcg/kg per minute in the morning, that was weaned down and was stopped 1 hour ago. Patient was on Versed 6 mg per hour in the morning. While EEG was performed, it was decreased to 30 mg per hour, which is still running. Patient also on fentanyl 0 point 5 in the morning, that was discontinued at 10 AM. No obvious seizure activity noted. Patient continues to be intubated, partly se dated as mentioned above. Objective - Vital Signs Vital signs: Vital Signs Temp 100.2 F H 09/30/22 12:00 Pulse 62 09/30/22 13:00 Resp 21 09/30/22 13:00 BP 103/62 09/28/22 22:51 Pulse Ox 95 09/30/22 13:00 FiO2 40 09/30/22 12:00 Intake & Output 09/29/22 09/30/22 09/30/22 18:59 06:59 18:59 Intake Total 2533.443 4342.112 0352.980 Output Total 1345 710 455 Balance 5819.544 0905.037 545.980 Weight 77.1 kg 78.9 kg Intake: IV 2088 1283 638 0.9 KVO 120 130 55 ACETAMINOPHEN IV (For NPO 100 100 ) 1,000 mg In Empty Bag 1 bag @ 400 mls/hr IVPB Q6HR PRN Rx#:[id number] ARTERIAL LINE 36 39 18 CVP 33 39 15 Sodium Chloride 0.9% 1, 900 975 450 000 ml @ 75 mls/hr IV . [id number] [facility] Rx#:[id number] Sodium Chloride 0.9% 1, 999 000 ml @ 999 mls/hr IV . Q1H1M [facility] Rx#:[id number] Intake, IV Titration 445.443 422.037 182.980 Amount DOPamine DRIP 800 mg In 43.248 62.570 Dextrose/Water 1 250ml. bag @ 5 MCG/KG/MIN 7.228 mls/hr IV .Q24H [facility] Rx#: [id number] Midazolam HCl 50 mg In 24.4 29.9 Sodium Chloride 0.9% 40 ml @ 3 MG/HR 3 mls/hr IV .[id number] [facility] Rx#: [id number] Norepinephrine 4 mg In 37.956 Sodium Chloride 0.9% 250 ml @ 0.03 MCG/KG/MIN 8. 192 mls/hr IV .Q24H [facility] Rx#:[id number] Norepinephrine 4 mg In 21.15 56.159 19.094 Sodium Chloride 0.9% 250 ml @ 0.03 MCG/KG/MIN 8. 813 mls/hr IV .Q24H [facility] Rx#:[id number] Sodium Chloride 0.9% 80 68.853 ml @ 0.5 MCG/KG/HR 3.583 mls/hr IV .Q24H [facility] with fentaNYL (PF) 1,000 mcg Rx#:[id number] propofoL 1,000 mg In 317.484 298.23 71.416 Empty Bag 1 bag @ 15 MCG/ KG/MIN 6.45 mls/hr IV . [id number] [facility] Rx#:[id number] Tube Feeding 120 120 Other 90 60 Output: Gastric Drainage 700 Urine 645 710 455 Other: Voiding Method Indwelling Catheter Indwelling Catheter Indwelling Catheter ABP, PAP, CO, CI - Last Documented Arterial Blood Pressure 138/54 - Exam Patient is intubated. On calling his name he slightly opened his eyes. His gaze at times appears to be towards the right, sometimes appears midline. At times has roving eye movements. Pupils are equal, round and reacting. Oculoc ephalics are present. Corneals present. Patient is breathing over the ventilator. On painful stimuli, patient slightly opened his eyes, on the left side but nothing on the right. Patient did not clearly track or made eye contact. No obvious seizure activity noted. No twitching. - Labs CBC & Chem 7: 10/01/22 05:40 10/01/22 05:40 Labs: Abnormal Lab Results - Last 24 Hours (Table) 09/30/22 09/30/22 09/30/22 Range/Units 04:40 04:40 05:39 WBC 13.3 H (3.8-10.6) k/uL Neutrophils # 11.3 H (1.3-7.7) k/uL ABG pH 7.34 L (7.35-7.45) ABG pO2 79 L (83-108) mmHg Chloride 110 H (98-107) mmol/L Carbon Dioxide 19 L (22-30) mmol/L BUN 21 H (9-20) mg/dL POC Glucose (mg/dL) (70-110) mg/dL 09/30/22 Range/Units 11:49 WBC (3.8-10.6) k/uL Neutrophils # (1.3-7.7) k/uL ABG pH (7.35-7.45) ABG pO2 (83-108) mmHg Chloride (98-107) mmol/L Carbon Dioxide (22-30) mmol/L BUN (9-20) mg/dL POC Glucose (mg/dL) 121 H (70-110) mg/dL Microbiology - Last 24 Hours (Table) 09/28/22 15:56 Gram Stain - Final Sputum Sputum Culture - Final Assessment and Plan Assessment: * Patient found unresponsive, hypotensive, 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 Smaller area of acute ischemia also noticeable in the right frontal watershed region as well. Patient was not a TPA candidate because of last known well > 12 hours. 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 However he was not tracking, or making eye contact. Patient was on high-dose sedation with Versed, propofol and fentanyl. Propofol and fentanyl has just been discontinued in the morning. Recommend slowly weaning down Versed, try to taper it off. * Repeat EEG performed today was abnormal due to background slowing and intermittent suppression suggestive of generalized encephalopathy of moderate to severe degree. This can be seen with toxic metabolic causes, related to m edication use. No epileptiform activity was seen in the entire study. When compared to the EEG from yesterday, the background seems to have slightly more slow and more suppressed. * Suggest tapering down sedative medications if possible. If he has any more seizures, given Ativan as needed. * Patient's Keppra has been increased to 1000 mg twice a day. Patient's renal functions have normalized. If any more seizures, we will increase Keppra to 1500 mg twice a day. * Patient appears critically sick at this time. * Repeat CT head 09/29/2022 revealed evolution of the left frontal no parietal acute/subacute CVA. Small area of decreased attenuation right frontal lobe as well noticeable. I personally reviewed CT head, agree with the findings. * Carotid Doppler, revealed less than 50% stenosis of bilateral carotid bifurcation. Antegrade flow in both vertebral arteries.. * 2-D echo Revealed paced rhythm, preserved LV systolic function. EF is 50- 55%. Left atrial size is normal. No embolic source. * Fasting a.m. lipid panel cholesterol 94, LDL 27, HDL 28, triglycerides 191. LDL well controlled. * Hemoglobin A1c 6.0. * Suggest starting aspirin 81 mg daily, if no medical contraindications. * Other management as per critical care, IM and other specialties. * Discussed the nursing staff in detail.
[2022-10-01] MEDS ORDERED: levETIRAcetam IV 500 MG/5 ML VIAL IVP STA (09:25)
[2022-10-01 10:26] LABS: ABG Base Excess -1.8 mmol/L; ABG HCO3 23 mmol/L (21-25); ABG Oxygen Saturation 96.3 % (94-97); ABG PCO2 37 mmHg (35-45); ABG PH 7.41 (7.35-7.45); ABG PO2 80 mmHg (83-108); ABG TCO2 24 mmol/L (19-24)
[2022-10-01 10:28] LABS: Allen Test Performed? no
--- NOTE | 2022-10-01 10:41 | PN ---
PROGRESS NOTE SUBJECTIVE: Mitch is a 57-year-old gentleman, who is admitted to hospital with CVA, vent requiring respiratory failure, and symptomatic bradycardia. I did a temporary pacemaker on him. He is no longer using it for the last 2 days. Have remotely pacemaker today and have removed the left femoral venous sheath. He is having recurrent episodes of seizures and his prognosis guarded. OBJECTIVE: GENERAL: Intubated on vent. VITAL SIGNS: Heart rate is 80 beats per minute. Blood pressure is 180/70, respiratory rate is 18. CHEST: Reveals diminished air entry at the bases. HEART: Reveals first and second heart sounds and a systolic murmur at the left lower sternal border. ABDOMEN: Soft. EXTREMITIES: Reveals mild edema. Peripheral pulses are palpable. LABORATORY DATA: Labs show a hemoglobin of 15.2, platelet count is 140, potassium is 3.7, creatinine is 0.7. ASSESSMENT: Cerebrovascular accident, symptomatic bradycardia, vent requiring respiratory failure. PLAN: We will continue with current supportive care. Prognosis guarded. MMODL / IJN: [id number] /
[2022-10-01] MEDS: CHLORHEXIDINE GLUCONATE 15 ML CUP MUCOUS MEM SCH ×2 (10:42→20:28)
[2022-10-01] MEDS: PANTOPRAZOLE 40 MG/10 ML VIAL IV SCH (10:42)
[2022-10-01] MEDS: HEPARIN SODIUM,PORCINE/PF 5,000 UNIT/0.5 ML SYRINGE SQ SCH ×2 (10:42→20:28)
[2022-10-01 11:57] LABS: Glucose,Whole Blood 192 mg/dL (70-110)
--- NOTE | 2022-10-01 11:59 | OP ---
OPERATIVE REPORT DATE OF SERVICE : PROCEDURE PERFORMED: Placement of a left radial arterial line. PREOPERATIVE DIAGNOSES: Acute cerebrovascular accident, acute hypoxic respiratory failure, anoxic brain injury. POSTOPERATIVE DIAGNOSES: Acute cerebrovascular accident, acute hypoxic respiratory failure, anoxic brain injury. ANESTHESIA USED: None deployed. DESCRIPTION OF PROCEDURE: The patient was placed in a supine position, the left wrist was prepared in a sterile fashion and drapes were applied. The left radial artery was palpated, cannulated, a guidewire was placed. A Cook catheter was inserted over the guidewire, the guidewire was removed. Good blood flow, good waveform, no complications, line was secured using 3-0 silk sutures. MMODL / IJN: [id number] /
[2022-10-01] MEDS ORDERED: ATROPINE SULFATE 0.1 MG/ML 10ML SYRINGE ONE (12:17)
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
[2022-10-01] MEDS: NOREPINEPHRINE 4 MG in SODIUM CHLORIDE 0.9% 250 ML IV SCH (16:01)
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
[2022-10-01] MEDS: DOPamine DRIP 800 MG in DEXTROSE/WATER 1 250ML.BAG IV SCH (17:07)
[2022-10-01 17:58] LABS: Glucose,Whole Blood 171 mg/dL (70-110)
[2022-10-01] MEDS: levETIRAcetam IV 500 MG/5 ML VIAL IVP SCH (20:28)
[2022-10-01] MEDS: SODIUM CHLORIDE 0.9% 80 ML with fentaNYL (PF) 1,000 MCG IV SCH ×2 (20:53)
[2022-10-01] MEDS ORDERED: DEXTROSE 50% SYRINGE 50 ML IVP PRN ×2 (21:23)
[2022-10-02] MEDS: CLEVIDIPINE BUTYRATE 25 MG in EMPTY BAG 1 BAG IV SCH ×6 (02:01→22:31)
[2022-10-02] MEDS: MIDAZOLAM HCL 50 MG in SODIUM CHLORIDE 0.9% 40 ML IV SCH ×4 (02:40→12:46)
[2022-10-02 02:45] LABS: Glucose,Whole Blood 164 mg/dL (70-110)
[2022-10-02 04:25] LABS: Basophils % (A) 0 %; Eosinophils # (A) 0.2 k/uL (0-0.7); Eosinophils % (A) 1 %; HCT 34.6 % (39.0-53.0); HGB 11.2 gm/dL (13.0-17.5); Lymphocytes # (A) 0.9 k/uL (1.0-4.8); Lymphocytes % (A) 8 %; MCHC 32.2 g/dL (31.0-37.0); MCV 96.2 fL (80.0-100.0); Mean Platelet Volume 10.3; Monocytes # (A) 0.7 k/uL (0-1.0); Monocytes % (A) 7 %; Neutrophils % (A) 82 %; Platelet Count 158 k/uL (150-450); RDW 13.8 % (11.5-15.5); WBC 10.9 k/uL (3.8-10.6)
[2022-10-02 04:37] LABS: African American GFR (CKD) >90 (>60 ml/min/1.73 sqM); Anion Gap 6 mmol/L; Blood Urea Nitrogen 19 mg/dL (9-20); Calcium 7.8 mg/dL (8.4-10.2); Carbon Dioxide 22 mmol/L (22-30); Chloride 112 mmol/L (98-107); Glucose 153 mg/dL (74-99); Non-African American GFR(CKD) >90 (>60 ml/min/1.73 sqM); Potassium 3.4 mmol/L (3.5-5.1); Sodium 140 mmol/L (137-145)
[2022-10-02] MEDS ORDERED: Potassium Replacement Protocol 1 EACH MISC MISCELLANE PRN (04:52)
[2022-10-02] MEDS: POTASSIUM BICARBONATE/CIT AC 20 MEQ TABLET.EFF NG-TUBE SCH ×2 (05:12→05:50)
[2022-10-02 05:32] LABS: ABG Base Excess -2.7 mmol/L; ABG HCO3 22 mmol/L (21-25); ABG Oxygen Saturation 94.8 % (94-97); ABG PCO2 38 mmHg (35-45); ABG PH 7.39 (7.35-7.45); ABG PO2 71 mmHg (83-108); ABG TCO2 24 mmol/L (19-24)
[2022-10-02 06:43] LABS: Glucose,Whole Blood 154 mg/dL (70-110)
[2022-10-02] MEDS: INSULIN ASPART (NovoLOG) 100 UNIT/ML VIAL SQ SCH ×4 (06:57→23:57)
[2022-10-02] MEDS: HEPARIN SODIUM,PORCINE/PF 5,000 UNIT/0.5 ML SYRINGE SQ SCH ×2 (08:19→22:26)
[2022-10-02] MEDS: CHLORHEXIDINE GLUCONATE 15 ML CUP MUCOUS MEM SCH ×2 (08:19→22:26)
[2022-10-02] MEDS: SODIUM CHLORIDE 0.9% 1,000 ML IV SCH ×2 (08:19→23:58)
[2022-10-02] MEDS: levETIRAcetam IV 500 MG/5 ML VIAL IVP SCH ×2 (08:20→22:26)
[2022-10-02] MEDS: PANTOPRAZOLE 40 MG/10 ML VIAL IV SCH (08:20)
[2022-10-02] MEDS: IPRATROPIUM-ALBUTEROL 3 ML NEB INHALATION SCH ×4 (08:32→19:26)
--- NOTE | 2022-10-02 09:36 | XR ---
EXAMINATION TYPE: XR chest 1V portable DATE OF EXAM: 10/02/2022 COMPARISON: 10/01/2022 HISTORY: Tube placement TECHNIQUE: Single frontal view of the chest is obtained. FINDINGS: ET tube is 5 cm above the keily. NG tube within the stomach. No change in the right-sided PICC line. There is no change in the retrocardiac opacity likely combination of atelectasis, small effusion or l erik infiltrate. The right lung remains clear. There is no pneumothorax. There is remote or left rib fracture. The heart size is normal and the pulmonary vasculature is not congested. IMPRESSION: 1. ET tube 5.2 cm above the keily. 2. No change in the acute cardiopulmonary disease involving the left lung base
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
[2022-10-02 12:09] LABS: Glucose,Whole Blood 130 mg/dL (70-110)
[2022-10-02] MEDS: DEXAMETHASONE SOD PHOSPHATE 4 MG/ML 1 ML VIAL IVP SCH ×3 (12:50→23:57)
--- NOTE | 2022-10-02 13:03 | PN ---
PROGRESS NOTE SUBJECTIVE: Igor is admitted to hospital with symptomatic bradycardia, respiratory failure, and CVA. His venous and arterial lines have been removed yesterday and had some groin bleed. His predominant problem at the moment is recurrent episodes of seizures. Currently, his sedation is being taken off and they will be making an attempt to wean him. OBJECTIVE: GENERAL: He is unresponsive, intubated, and on vent. VITAL SIGNS: Heart rate is 67 beats per minute, blood pressure is 140/60, respiratory rate is 18. CHEST: Reveals diminished air entry at the bases. HEART: Reveals first and second heart sounds. No gallop, no murmur. ABDOMEN: Soft. EXTREMITIES: Reveals mild edema. Peripheral pulses are felt. LABORATORY: Show a hemoglobin of 11.2, platelet count is 158, creatinine is 0.7. ASSESSMENT: 1. Symptomatic bradycardia, status post temporary pacemaker, resolved. 2. Vent requiring respiratory failure. 3. CVA. NOLVIA / NATHALIEN: [id number] /
[2022-10-02] MEDS ORDERED: MIDAZOLAM HCL 200 MG in SODIUM CHLORIDE 0.9% 60 ML IV SCH (14:00)
[2022-10-02] MEDS: NOREPINEPHRINE 4 MG in SODIUM CHLORIDE 0.9% 250 ML IV SCH (14:39)
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
[2022-10-02] MEDS ORDERED: ASPIRIN 300 MG SUPP RECTAL SCH (16:00)
[2022-10-02] MEDS: DOPamine DRIP 800 MG in DEXTROSE/WATER 1 250ML.BAG IV SCH (17:10)
[2022-10-02] MEDS: MIDAZOLAM HCL 200 MG in SODIUM CHLORIDE 0.9% 60 ML IV SCH ×2 (17:35→19:43)
[2022-10-02] MEDS: ASPIRIN 325 MG TAB PO SCH (17:35)
[2022-10-02 18:50] LABS: Glucose,Whole Blood 192 mg/dL (70-110)
[2022-10-02] MEDS: SODIUM CHLORIDE 0.9% 80 ML with fentaNYL (PF) 1,000 MCG IV SCH ×2 (21:31)
[2022-10-02 23:47] LABS: Glucose,Whole Blood 200 mg/dL (70-110)
[2022-10-03] MEDS: CLEVIDIPINE BUTYRATE 25 MG in EMPTY BAG 1 BAG IV SCH ×9 (00:22→21:59)
[2022-10-03] MEDS: HYDROmorphone 1 MG/ML 1 ML SYRINGE IVP PRN ×7 (02:25→21:07)
[2022-10-03 04:43] LABS: African American GFR (CKD) >90 (>60 ml/min/1.73 sqM); Anion Gap 9 mmol/L; Blood Urea Nitrogen 22 mg/dL (9-20); Calcium 8.6 mg/dL (8.4-10.2); Carbon Dioxide 20 mmol/L (22-30); Chloride 112 mmol/L (98-107); Glucose 206 mg/dL (74-99); Non-African American GFR(CKD) >90 (>60 ml/min/1.73 sqM); Potassium 4.5 mmol/L (3.5-5.1); Sodium 141 mmol/L (137-145)
[2022-10-03 05:04] LABS: Basophils % (A) 0 %; Eosinophils % (A) 0 %; HCT 40.5 % (39.0-53.0); HGB 13.2 gm/dL (13.0-17.5); Lymphocytes # (A) 0.5 k/uL (1.0-4.8); Lymphocytes % (A) 5 %; MCH 32.1 pg (25.0-35.0); MCHC 32.7 g/dL (31.0-37.0); MCV 98.1 fL (80.0-100.0); Mean Platelet Volume 9.7; Monocytes # (A) 0.4 k/uL (0-1.0); Monocytes % (A) 4 %; Neutrophils # (A) 8.7 k/uL (1.3-7.7); Neutrophils % (A) 90 %; Platelet Count 224 k/uL (150-450); RBC 4.13 m/uL (4.30-5.90); RDW 13.7 % (11.5-15.5); WBC 9.7 k/uL (3.8-10.6)
[2022-10-03 05:26] LABS: ABG HCO3 22 mmol/L (21-25); ABG Oxygen Saturation 95.9 % (94-97); ABG PCO2 34 mmHg (35-45); ABG PH 7.41 (7.35-7.45); ABG PO2 79 mmHg (83-108); ABG TCO2 23 mmol/L (19-24); Allen Test Performed? Yes
[2022-10-03 05:52] LABS: Glucose,Whole Blood 189 mg/dL (70-110)
[2022-10-03] MEDS: INSULIN ASPART (NovoLOG) 100 UNIT/ML VIAL SQ SCH ×3 (05:58→17:13)
[2022-10-03] MEDS: DEXAMETHASONE SOD PHOSPHATE 4 MG/ML 1 ML VIAL IVP SCH ×3 (05:59→17:11)
[2022-10-03] MEDS: PANTOPRAZOLE 40 MG/10 ML VIAL IV SCH (08:20)
[2022-10-03] MEDS: ASPIRIN 325 MG TAB PO SCH (08:21)
[2022-10-03] MEDS: HEPARIN SODIUM,PORCINE/PF 5,000 UNIT/0.5 ML SYRINGE SQ SCH ×2 (08:21→20:52)
[2022-10-03] MEDS: levETIRAcetam IV 500 MG/5 ML VIAL IVP SCH ×3 (08:21→20:50)
[2022-10-03] MEDS: CHLORHEXIDINE GLUCONATE 15 ML CUP MUCOUS MEM SCH ×2 (08:21→20:52)
[2022-10-03] MEDS: hydrALAZINE HCL 20 MG/ML 1 ML VIAL IVP PRN ×2 (08:28→20:45)
[2022-10-03] MEDS: IPRATROPIUM-ALBUTEROL 3 ML NEB INHALATION SCH ×4 (08:28→20:04)
[2022-10-03] MEDS ORDERED: amLODIPine 10 MG TAB PO SCH (09:00)
--- NOTE | 2022-10-03 10:14 | PN ---
PROGRESS NOTE SUBJECTIVE: Mitch is a 57-year-old gentleman, who is admitted to hospital with CVA, intubated and on vent through last night. His blood pressures have been poorly controlled. I am adding Norvasc 10 mg daily and also losartan 25 mg daily. His overall condition has remained unchanged and he is continuing to have seizures. I asked the nurse to talk to the neurologist to see if we can further optimize seizure medication. OBJECTIVE: VITAL SIGNS: Afebrile. Heart rate is 65 beats per minute, blood pressure is 117/68, respiratory rate is 18. CHEST: Reveals good air entry bilaterally. HEART: Reveals first and second heart sounds. No gallop. No murmur. ABDOMEN: Soft. EXTREMITIES: Did not reveal any edema. Peripheral pulses are palpable. LABORATORY DATA: Labs show that the blood gases show a pH of 7.4, pCO2 of 34, PO2 of 79. Labs showed a potassium of 4.5, creatinine of 0.6, hemoglobin is 13.2. ASSESSMENT: 1. Cerebrovascular accident. 2. Vent requiring respiratory failure. 3. Seizure disorder. PLAN: The patient will continue current medications. Prognosis guarded. MMODL / IJN: [id number] /
[2022-10-03] MEDS ORDERED: LOSARTAN 25 MG TAB PO SCH (10:45)
--- NOTE | 2022-10-03 10:50 | XR ---
EXAMINATION TYPE: XR chest 1V portable DATE OF EXAM: 10/03/2022 COMPARISON: 10/02/2022 INDICATION: Tube placement TECHNIQUE: Single frontal view of the chest is obtained. FINDINGS: The heart size is normal. The pulmonary vasculature is upper limits of normal. Some mild groundglass opacity may be at the right base. Correlate for some early pulmonary edema Endotracheal tube tip is above the keily. Nasogastric tube transverses the thorax tip in the abdomen . Right central venous catheter tip is in the right atrium region. IMPRESSION: 1. Correlate for worsening volume overload or early pulmonary edema. 2. Lines and catheters discussed above
[2022-10-03 11:38] LABS: Glucose,Whole Blood 205 mg/dL (70-110)
[2022-10-03] MEDS: SODIUM CHLORIDE 0.9% 1,000 ML IV SCH (12:00)
--- NOTE | 2022-10-03 12:03 | OP ---
OPERATIVE REPORT DATE OF SERVICE : PROCEDURE PERFORMED: Placement of a right brachial arterial line. PREOPERATIVE DIAGNOSES: 1. Acute respiratory failure. 2. Cerebrovascular accident. POSTOPERATIVE DIAGNOSES: 1. Acute respiratory failure. 2. Cerebrovascular accident. ANESTHESIA USED: None deployed. DESCRIPTION OF PROCEDURE: The patient was placed in a supine position, right brachial region was prepared in a sterile fashion. Drapes were applied. The right brachial artery was palpated, cannulated easily and a guidewire was placed. A Cook catheter was inserted over the guidewire, and the guidewire was removed. Good blood flow, good waveform noted, line was secured using 3.0 silk sutures. No complications. Addendum: Multiple attempts were made to place a right radial arterial line. However, these were unsuccessful and the patient had a left radial arterial line that was displaced yesterday and we have to replace the arterial line today. MMODL / IJN: [id number] /
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
--- NOTE | 2022-10-03 14:16 | CT ---
EXAMINATION TYPE: CT brain wo con DATE OF EXAM: 10/03/2022 INDICATION: Seizures, Neuro changes COMPARISON: 07/26/2022 CT DLP: 1099.8 mGycm CONTRAST: Performed with Oral Contrast and with IV Contrast, patient injected with 100 mL of Isovue 300. TECHNIQUE: Axial images at 5 mm thick sections. Reconstructed images in the coronal plane. Delayed images through the kidneys. FINDINGS: CT CHEST: Portion of the thyroid visualized is normal. There is extensive nodularity throughout the bilateral lung witt. The largest nodules may be a 2.0 cm nodule in the superior lateral right upper lung field or 1.9 cm nodule in the anterior lateral lef t midlung. Findings appear similar to comparison. Masslike area along the pleural margin is present in the posterior lateral right lung base measuring 4.5 x 2.2 cm. This is new from the comparison There is prominent retrocrural adenopathy. Small pretracheal lymph nodes are present. The ascending aorta diameter at the level of the main pulmonary artery is 4.4 cm. The main pulmonary artery diameter at the bifurcation is 1.[address] ABDOMEN: Liver: There are extensive hypodensities through the left and right liver lobes. The largest in the i nferior right measures 5.8 cm. Largest within the left measures 7.7 cm. Findings present previously a nd are suspicious for a static disease. Spleen: Normal Pancreas: Normal Adrenal glands: The adrenal glands are normal. Gallbladder: Normal Kidneys: No masses are evident. No hydronephrosis is present. There is a 2.4 cm cyst within the pos terior right kidney. There is a 1.2 cm cyst on her medial left kidney. Aorta: Vascular calcification is within the aorta. Inferior vena cava: Normal. CT PELVIS: The lower pelvis is not well visualized due to beam hardening artifact from bilateral hip prostheses. Loops of bowel within the abdomen and pelvis are normal. There are loops of bowel which are incom pletely distended or lack oral contrast limiting their evaluation. Appendix: Not identified. No dilated tubular structure or inflammatory change is evident. Urinary bladder: Not identified during this exam due to beam hardening artifact within the pelvis Genitourinary structures: Prostate visualized appears normal Osseous structures: No suspicious lytic or sclerotic lesions. Prostheses limits the lower portion pel vis. Facet degenerative changes are within the lumbar spine. There may be some lytic area within the L3 level lytic area or limbus vertebra of L1 may be present. COMPARISON: The hypoechoic lesions within the liver are less well defined on the current examination. The consolidation at the posterior lateral right lung base is new from comparison L1 and L3 vertebra l levels appear similar to comparison IMPRESSIONS: 1. Extensive nodularity to the bilateral lungs compatible with metastatic disease. Findings appear si milar to comparison. 2. New consolidation right posterior lateral lung base. Correlate for mass or pneumonia. Follow-up is recommended. 3. Extensive ill-defined hypodensities within the liver suspicious for metastatic disease. The larges t in the inferior lobe measuring 5.8 cm but are present bilaterally. 4. Suspected lytic metastatic changes L1 and L3.
--- NOTE | 2022-10-03 14:42 | XR ---
EXAMINATION TYPE: XR chest 1V portable DATE OF EXAM: 10/03/2022 COMPARISON: 10/03/2022 HISTORY: Tube placement.TECHNIQUE: Single frontal view of the chest is obtained. FINDINGS: There is an ET tube 5.6 cm above the keily. There has been retraction of a central PICC line which enters the right jugular vein. The tip is in the right brachiocephalic vein and has been retracted fr om the right atrium. There is an NG tube within the stomach. The lungs are clear. There is no pleural effusion or pneumothorax. Heart is mildly prominent in size but the vasculature is not congested. The osseous structures are intact IMPRESSION: 1. ET tube 5.6 cm above the keily. 2. PICC line tip in the right brachiocephalic vein. 3. Mild cardiomegaly. 4. No acute cardiopulmonary disease.
[2022-10-03] MEDS: MIDAZOLAM HCL 200 MG in SODIUM CHLORIDE 0.9% 60 ML IV SCH (15:23)
[2022-10-03] MEDS: NOREPINEPHRINE 4 MG in SODIUM CHLORIDE 0.9% 250 ML IV SCH (15:59)
[2022-10-03] MEDS: DOPamine DRIP 800 MG in DEXTROSE/WATER 1 250ML.BAG IV SCH (17:11)
[2022-10-03 17:14] LABS: Glucose,Whole Blood 183 mg/dL (70-110)
[2022-10-03] MEDS: SODIUM CHLORIDE 0.9% 80 ML with fentaNYL (PF) 1,000 MCG IV SCH ×2 (20:30)
[2022-10-04] MEDS: INSULIN ASPART (NovoLOG) 100 UNIT/ML VIAL SQ SCH ×5 (00:05→23:19)
[2022-10-04] MEDS: DEXAMETHASONE SOD PHOSPHATE 4 MG/ML 1 ML VIAL IVP SCH ×5 (00:06→23:19)
[2022-10-04 00:12] LABS: Glucose,Whole Blood 184 mg/dL (70-110)
[2022-10-04] MEDS: HYDROmorphone 1 MG/ML 1 ML SYRINGE IVP PRN ×8 (00:12→23:18)
[2022-10-04] MEDS: CLEVIDIPINE BUTYRATE 25 MG in EMPTY BAG 1 BAG IV SCH ×9 (01:01→21:29)
[2022-10-04 04:50] LABS: Basophils % (A) 0 %; Eosinophils % (A) 0 %; HCT 38.7 % (39.0-53.0); HGB 12.8 gm/dL (13.0-17.5); Lymphocytes # (A) 0.5 k/uL (1.0-4.8); Lymphocytes % (A) 5 %; MCH 32.4 pg (25.0-35.0); MCV 98.1 fL (80.0-100.0); Mean Platelet Volume 9.4; Monocytes # (A) 0.9 k/uL (0-1.0); Monocytes % (A) 9 %; Neutrophils # (A) 8.7 k/uL (1.3-7.7); Neutrophils % (A) 85 %; Platelet Count 216 k/uL (150-450); RBC 3.95 m/uL (4.30-5.90); RDW 13.4 % (11.5-15.5); WBC 10.2 k/uL (3.8-10.6)
[2022-10-04 05:12] LABS: African American GFR (CKD) >90 (>60 ml/min/1.73 sqM); Anion Gap 6 mmol/L; Blood Urea Nitrogen 36 mg/dL (9-20); Calcium 8.3 mg/dL (8.4-10.2); Carbon Dioxide 22 mmol/L (22-30); Chloride 113 mmol/L (98-107); Glucose 202 mg/dL (74-99); Non-African American GFR(CKD) >90 (>60 ml/min/1.73 sqM); Sodium 141 mmol/L (137-145)
[2022-10-04 05:45] LABS: Glucose,Whole Blood 194 mg/dL (70-110)
[2022-10-04 05:48] LABS: ABG Base Excess -1.3 mmol/L; ABG HCO3 23 mmol/L (21-25); ABG Oxygen Saturation 97.4 % (94-97); ABG PCO2 36 mmHg (35-45); ABG PH 7.42 (7.35-7.45); ABG PO2 93 mmHg (83-108); ABG TCO2 24 mmol/L (19-24); Allen Test Performed? Yes
[2022-10-04] MEDS: SODIUM CHLORIDE 0.9% 1,000 ML IV SCH ×2 (05:49→15:38)
[2022-10-04] MEDS: hydrALAZINE HCL 20 MG/ML 1 ML VIAL IVP PRN ×2 (06:08→14:27)
--- NOTE | 2022-10-04 07:43 | P.PN ---
Subjective Progress Note Date: 10/04/22 Principal diagnosis: Hypertension emergency This is a 58-year-old gentleman who was admitted to the hospital with a change in mental status with possible CVA as well as a seizure. Currently he is intubated and he is on mechanical ventilation. We consulted to see the patient for hypertension management. The patient remains intubated. PEG is in process to be done and he potentially might have anoxic encephalopathy. The pressure remains elevated in spite of the current medical regimen. He continues to be in sinus mechanism and sinus tachycardia. I am going to go up with the dose of losartan and we might need to consider adding beta enoch to the current medical regimen. Continue IV calcium channel enoch. Continue hydralazine when necessary. Assessment Change in mental status Possible CVA Possible seizure disorder Hypertension emergency Plan Continue hydralazine when necessary Consider adding beta enoch if we need to Dose of losartan Continue IV calcium channel enoch Objective - Vital Signs Vital signs: Vital Signs Temp 98.1 F 10/04/22 04:00 Pulse 98 10/04/22 07:00 Resp 25 H 10/04/22 07:00 BP 154/112 10/03/22 21:00 Pulse Ox 94 L 10/04/22 07:00 FiO2 40 10/04/22 04:00 Intake & Output 10/03/22 10/04/22 10/04/22 18:59 06:59 18:59 Intake Total 5411.549 8580.732 4.058 Output Total 685 1215 50 Balance 1170.493 -41.268 -45.942 Weight 83.8 kg Intake: IV 504 989 3 CVP & ART 54 39 3 Sodium Chloride 0.9% 1, 450 900 000 ml @ 75 mls/hr IV . [id number] [facility] Rx#:[id number] cefTRIAXone 2 gm In 50 Sodium Chloride 0.9% 50 ml @ 100 mls/hr IVPB Q24H [facility] Rx#:[id number] Intake, IV Titration 810.493 143.732 1.058 Amount Clevidipine Butyrate 25 170.768 114.466 mg In Empty Bag 1 bag @ 1 MG/HR 2 mls/hr IV .Q24H [facility] Rx#:[id number] Midazolam HCl 200 mg In 39.725 29.266 1.058 Sodium Chloride 0.9% 60 ml @ 3 MG/HR 1.5 mls/hr IV .Q24H [facility] Rx#: [id number] Sodium Chloride 0.9% 1, 600 000 ml @ 75 mls/hr IV . [id number] [facility] Rx#:[id number] Tube Feeding 451 41 Other 90 Output: Urine 685 1215 50 Other: Voiding Method Indwelling Catheter Indwelling Catheter ABP, PAP, CO, CI - Last Documented Arterial Blood Pressure 170/66 - Labs CBC & Chem 7: 10/04/22 04:30 10/04/22 04:30 Labs: Abnormal Lab Results - Last 24 Hours (Table) 10/03/22 10/03/22 10/04/22 Range/Units 11:36 17:13 00:00 RBC (4.30-5.90) m/uL Hgb (13.0-17.5) gm/dL Hct (39.0-53.0) % Neutrophils # (1.3-7.7) k/uL Lymphocytes # (1.0-4.8) k/uL ABG O2 Saturation (94-97) % Chloride (98-107) mmol/L BUN (9-20) mg/dL Creatinine (0.66-1.25) mg/dL Glucose (74-99) mg/dL POC Glucose (mg/dL) 205 H 183 H 184 H (70-110) mg/dL Calcium (8.4-10.2) mg/dL 10/04/22 10/04/22 10/04/22 Range/Units 04:30 04:30 05:43 RBC 3.95 L (4.30-5.90) m/uL Hgb 12.8 L (13.0-17.5) gm/dL Hct 38.7 L (39.0-53.0) % Neutrophils # 8.7 H (1.3-7.7) k/uL Lymphocytes # 0.5 L (1.0-4.8) k/uL ABG O2 Saturation (94-97) % Chloride 113 H (98-107) mmol/L BUN 36 H (9-20) mg/dL Creatinine 0.56 L (0.66-1.25) mg/dL Glucose 202 H (74-99) mg/dL POC Glucose (mg/dL) 194 H (70-110) mg/dL Calcium 8.3 L (8.4-10.2) mg/dL 10/04/22 Range/Units 05:45 RBC (4.30-5.90) m/uL Hgb (13.0-17.5) gm/dL Hct (39.0-53.0) % Neutrophils # (1.3-7.7) k/uL Lymphocytes # (1.0-4.8) k/uL ABG O2 Saturation 97.4 H (94-97) % Chloride (98-107) mmol/L BUN (9-20) mg/dL Creatinine (0.66-1.25) mg/dL Glucose (74-99) mg/dL POC Glucose (mg/dL) (70-110) mg/dL Calcium (8.4-10.2) mg/dL Microbiology - Last 24 Hours (Table) 09/30/22 03:10 Blood Culture - Preliminary Blood
[2022-10-04] MEDS: CHLORHEXIDINE GLUCONATE 15 ML CUP MUCOUS MEM SCH ×2 (08:06→20:19)
[2022-10-04] MEDS: PANTOPRAZOLE 40 MG/10 ML VIAL IV SCH (08:06)
[2022-10-04] MEDS: HEPARIN SODIUM,PORCINE/PF 5,000 UNIT/0.5 ML SYRINGE SQ SCH ×2 (08:06→20:19)
[2022-10-04] MEDS: levETIRAcetam IV 500 MG/5 ML VIAL IVP SCH ×2 (08:07→20:22)
[2022-10-04] MEDS: LOSARTAN 50 MG TAB PO SCH ×2 (08:08→20:22)
[2022-10-04] MEDS: ASPIRIN 325 MG TAB PO SCH (08:08)
[2022-10-04] MEDS: IPRATROPIUM-ALBUTEROL 3 ML NEB INHALATION SCH ×4 (08:14→19:43)
--- NOTE | 2022-10-04 08:26 | XR ---
EXAMINATION TYPE: XR chest 1V portable DATE OF EXAM: 10/04/2022 COMPARISON: 10/03/2022 HISTORY: Shortness of breath TECHNIQUE: Single frontal view of the chest is obtained. FINDINGS: There is an ET tube 5.6 cm above the keily. There coiling of a central PICC line which en ters the right jugular vein. The tip is in the right brachiocephalic vein period chronic rib deformit y noted along the lower left rib cage suggests prior trauma. there is an NG tube within the stomach. The lungs are clear. There is no pneumothorax. Heart is mildl y prominent in size but the vasculature is not congested. The osseous structures are intact left lowe r lobe infiltrate and small effusion. IMPRESSION: Left lower lobe infiltrate and small pleural effusion.
[2022-10-04] MEDS ORDERED: hydrALAZINE HCL 20 MG/ML 1 ML VIAL IVP STA (10:16)
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
[2022-10-04 12:16] LABS: Glucose,Whole Blood 189 mg/dL (70-110)
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
[2022-10-04] MEDS: NITROGLYCERIN-D5W PMX 50 MG in DEXTROSE/WATER 1 250ML.BAG IV SCH (15:28)
[2022-10-04] MEDS: NOREPINEPHRINE 4 MG in SODIUM CHLORIDE 0.9% 250 ML IV SCH (16:46)
[2022-10-04] MEDS: DOPamine DRIP 800 MG in DEXTROSE/WATER 1 250ML.BAG IV SCH (16:46)
[2022-10-04] MEDS ORDERED: ARTIFICIAL TEARS-HYPROMELLOSE DROPS 15 ML BTL BOTH EYES PRN (17:18)
[2022-10-04 17:32] LABS: Glucose,Whole Blood 147 mg/dL (70-110)
[2022-10-04] MEDS: SODIUM CHLORIDE 0.9% 80 ML with fentaNYL (PF) 1,000 MCG IV SCH ×2 (23:00)
[2022-10-04 23:17] LABS: Glucose,Whole Blood 180 mg/dL (70-110)
[2022-10-05] MEDS: CLEVIDIPINE BUTYRATE 25 MG in EMPTY BAG 1 BAG IV SCH ×5 (00:22→11:08)
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
[2022-10-05] MEDS: HYDROmorphone 1 MG/ML 1 ML SYRINGE IVP PRN ×7 (01:29→20:36)
[2022-10-05 05:02] LABS: ABG Base Excess 0.2 mmol/L; ABG HCO3 24 mmol/L (21-25); ABG Oxygen Saturation 97.6 % (94-97); ABG PCO2 36 mmHg (35-45); ABG PH 7.44 (7.35-7.45); ABG PO2 95 mmHg (83-108); ABG TCO2 26 mmol/L (19-24); Allen Test Performed? Yes
[2022-10-05 05:17] LABS: Glucose,Whole Blood 162 mg/dL (70-110)
[2022-10-05] MEDS: INSULIN ASPART (NovoLOG) 100 UNIT/ML VIAL SQ SCH ×3 (05:43→18:37)
[2022-10-05] MEDS: DEXAMETHASONE SOD PHOSPHATE 4 MG/ML 1 ML VIAL IVP SCH ×3 (05:45→18:36)
[2022-10-05 06:07] LABS: Basophils % (A) 0 %; Eosinophils % (A) 0 %; HCT 38.5 % (39.0-53.0); Lymphocytes % (A) 8 %; MCH 32.8 pg (25.0-35.0); MCHC 33.7 g/dL (31.0-37.0); MCV 97.2 fL (80.0-100.0); Mean Platelet Volume 9.1; Monocytes # (A) 1.2 k/uL (0-1.0); Monocytes % (A) 10 %; Neutrophils # (A) 10.2 k/uL (1.3-7.7); Neutrophils % (A) 81 %; Platelet Count 248 k/uL (150-450); RBC 3.96 m/uL (4.30-5.90); RDW 13.6 % (11.5-15.5); WBC 12.7 k/uL (3.8-10.6)
[2022-10-05] MEDS: SODIUM CHLORIDE 0.9% 1,000 ML IV SCH ×2 (06:07→18:37)
[2022-10-05 06:20] LABS: African American GFR (CKD) >90 (>60 ml/min/1.73 sqM); Anion Gap 8 mmol/L; Blood Urea Nitrogen 34 mg/dL (9-20); Calcium 8.6 mg/dL (8.4-10.2); Carbon Dioxide 22 mmol/L (22-30); Chloride 113 mmol/L (98-107); Glucose 160 mg/dL (74-99); Magnesium 1.6 mg/dL (1.6-2.3); Non-African American GFR(CKD) >90 (>60 ml/min/1.73 sqM); Potassium 3.8 mmol/L (3.5-5.1); Sodium 143 mmol/L (137-145)
[2022-10-05] MEDS ORDERED: Magnesium Replacement Protocol 1 EACH MISC MISCELLANE PRN (07:50)
[2022-10-05] MEDS ORDERED: POTASSIUM BICARBONATE/CIT AC 20 MEQ TABLET.EFF NG-TUBE SCH (08:00)
[2022-10-05] MEDS: PANTOPRAZOLE 40 MG/10 ML VIAL IV SCH (08:13)
[2022-10-05] MEDS: levETIRAcetam IV 500 MG/5 ML VIAL IVP SCH ×2 (08:13→20:00)
--- NOTE | 2022-10-05 08:13 | XR ---
EXAMINATION TYPE: XR chest 1V portable DATE OF EXAM: 10/05/2022 COMPARISON: 10/04/2022 INDICATION: Assess lungs previous abnormal, difficulty breathing TECHNIQUE: Single frontal view of the chest is obtained. FINDINGS: The heart size is normal. The pulmonary vasculature is normal. There may be some minimal developing atelectasis at the right lung base. There is poor visualization of the left diaphragm. A small pleural effusion and/or atelectasis may be present. Nasogastric tube transverses the thorax the tip in the left upper quadrant of the abdomen. Endotrache al tube tip is above the keily. There is placement of a right central venous catheter with the tip i n the proximal superior vena cava. IMPRESSION: 1. Suggestion of mild bibasilar atelectasis. Small left pleural effusion may be present. 2. Lines and catheters discussed above
[2022-10-05] MEDS: CHLORHEXIDINE GLUCONATE 15 ML CUP MUCOUS MEM SCH ×2 (08:14→20:00)
[2022-10-05] MEDS: ASPIRIN 325 MG TAB PO SCH (08:14)
[2022-10-05] MEDS: HEPARIN SODIUM,PORCINE/PF 5,000 UNIT/0.5 ML SYRINGE SQ SCH ×2 (08:14→20:00)
[2022-10-05] MEDS: IPRATROPIUM-ALBUTEROL 3 ML NEB INHALATION SCH ×4 (08:14→19:51)
[2022-10-05] MEDS: LOSARTAN 50 MG TAB PO SCH ×2 (08:14→20:00)
[2022-10-05] MEDS: MAGNESIUM SULFATE-D5W PMX 1 GM in DEXTROSE/WATER 1 100ML.BAG IVPB SCH ×2 (08:17→10:03)
[2022-10-05] MEDS ORDERED: lisinopriL 20 MG TAB PO SCH (10:00)
[2022-10-05] MEDS ORDERED: atenoloL 50 MG TAB PO SCH (10:00)
[2022-10-05] MEDS ORDERED: cloNIDine 0.2 MG/24HR PATCH TRANSDERM SCH (11:00)
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
[2022-10-05 11:46] LABS: Glucose,Whole Blood 175 mg/dL (70-110)
[2022-10-05] MEDS ORDERED: bisacodyL 10 MG SUPP RECTAL STA (11:47)
[2022-10-05] MEDS: SENNOSIDES 8.6 MG TAB PO SCH (13:30)
[2022-10-05] MEDS: DEXMEDETOMIDINE/0.9% NACL(PMX) 400 MCG in EMPTY BAG 1 BAG IV SCH ×2 (13:31→18:36)
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
--- NOTE | 2022-10-05 14:09 | P.PN ---
Subjective Progress Note Date: 10/05/22 The patient seen at bedside and according to the nurse he is on IV propofol since continues to have recurrent cough. Otherwise the nurse stated that the he continues to localize to pain and brief is over the vent. Objective - Vital Signs Vital signs: Vital Signs Temp 98.2 F 10/05/22 12:00 Pulse 75 10/05/22 14:00 Resp 12 10/05/22 14:00 BP 144/68 10/05/22 12:15 Pulse Ox 96 10/05/22 14:00 FiO2 40 10/05/22 14:00 Intake & Output 10/04/22 10/05/22 10/05/22 18:59 06:59 18:59 Intake Total 9098.152 4876.716 1221.136 Output Total 1350 1340 560 Balance 60.611 337.716 661.136 Weight 83.8 kg 81.3 kg Intake: IV 861 1064 546 ART 36 39 21 Sodium Chloride 0.9% 1, 825 975 525 000 ml @ 75 mls/hr IV . [id number] [facility] Rx#:[id number] cefTRIAXone 2 gm In 50 Sodium Chloride 0.9% 50 ml @ 100 mls/hr IVPB Q24H [facility] Rx#:[id number] Intake, IV Titration 346.611 393.716 575.136 Amount Clevidipine Butyrate 25 287.933 194.267 85.401 mg In Empty Bag 1 bag @ 1 MG/HR 2 mls/hr IV .Q24H [facility] Rx#:[id number] Dexmedetomidine/0.9% NaCl 1.084 (Pmx) 400 mcg In Empty Bag 1 bag @ 0.2 MCG/KG/HR 4.065 mls/hr IV .Q24H [facility] Rx#:[id number] Magnesium Sulfate-D5w Pmx 300 1 gm In Dextrose/Water 1 100ml.bag @ 100 mls/hr IVPB Q1H [facility] Rx#: [id number] Midazolam HCl 200 mg In 1.058 Sodium Chloride 0.9% 60 ml @ 3 MG/HR 1.5 mls/hr IV .Q24H [facility] Rx#: [id number] Nitroglycerin-D5w Pmx 50 59.650 mg In Dextrose/Water 1 250ml.bag @ 5 MCG/MIN 1.5 mls/hr IV .Q24H [facility] Rx#: [id number] propofoL 1,000 mg In 57.620 199.449 129.001 Empty Bag 1 bag @ 15 MCG/ KG/MIN 6.45 mls/hr IV . [id number] [facility] Rx#:[id number] Tube Feeding 203 130 70 Other 90 30 Output: Urine 1350 1340 560 Other: Voiding Method Indwelling Catheter Indwelling Catheter Indwelling Catheter ABP, PAP, CO, CI - Last Documented Arterial Blood Pressure 130/58 - Exam Respiratory: Intubated on vent. Neuro Limited. Is on IV Propofol 40mcg/kg/min. Is comatose GCS 8 (E2, VT1, M 5) Eyes ope with painful stimuli. Pupils are round, equal and reactive to light. +ve corneal reflex bilaterally. Has intact gag reflex. Breathing over the vent. Localizing to pain in lowers. Has induced clonus in right hand. - Labs CBC & Chem 7: 10/05/22 05:55 10/05/22 05:55 Labs: Abnormal Lab Results - Last 24 Hours (Table) 10/04/22 10/04/22 10/05/22 Range/Units 17:30 23:14 05:00 WBC (3.8-10.6) k/uL RBC (4.30-5.90) m/uL Hct (39.0-53.0) % Neutrophils # (1.3-7.7) k/uL Monocytes # (0-1.0) k/uL ABG Total CO2 26 H (19-24) mmol/L ABG O2 Saturation 97.6 H (94-97) % Chloride (98-107) mmol/L BUN (9-20) mg/dL Glucose (74-99) mg/dL POC Glucose (mg/dL) 147 H 180 H (70-110) mg/dL 10/05/22 10/05/22 10/05/22 Range/Units 05:16 05:55 05:55 WBC 12.7 H (3.8-10.6) k/uL RBC 3.96 L (4.30-5.90) m/uL Hct 38.5 L (39.0-53.0) % Neutrophils # 10.2 H (1.3-7.7) k/uL Monocytes # 1.2 H (0-1.0) k/uL ABG Total CO2 (19-24) mmol/L ABG O2 Saturation (94-97) % Chloride 113 H (98-107) mmol/L BUN 34 H (9-20) mg/dL Glucose 160 H (74-99) mg/dL POC Glucose (mg/dL) 162 H (70-110) mg/dL 10/05/22 Range/Units 11:44 WBC (3.8-10.6) k/uL RBC (4.30-5.90) m/uL Hct (39.0-53.0) % Neutrophils # (1.3-7.7) k/uL Monocytes # (0-1.0) k/uL ABG Total CO2 (19-24) mmol/L ABG O2 Saturation (94-97) % Chloride (98-107) mmol/L BUN (9-20) mg/dL Glucose (74-99) mg/dL POC Glucose (mg/dL) 175 H (70-110) mg/dL Microbiology - Last 24 Hours (Table) 09/30/22 03:10 Blood Culture - Final Blood Assessment and Plan Assessment: * Patient found unresponsive, hypotensive, 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 Smaller area of acute ischemia also noticeable in the right frontal watershed region as well. Patient was not a TPA candidate because of last known well > 12 hours. 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 * Prolonged EEG for 2.5 hours because of a twitching which was performed on 10/04/2022 and reported as abnormal. No clinical or electrographic seizures were recorded. No epileptiform activity was present. The EEG consisted of diffuse delta theta slowing with frequencies ranging from 2-5 Hz. And he by relative periods of the electrical suppression. These findings are not epileptiform in nature. These findings indicate severe diffuse cerebral dysfunction and may in part be due to medication effect. No seizure were recorded. No epileptiform activity was present. * Repeat CT head on 10/03/22: Reported as no change in multifocal area of in farction when compared to previous as described above. No acute bleed or mass effect. * Repeat EEG 09/30/2022 was abnormal due to background slowing and intermittent suppression suggestive of generalized encephalopathy of moderate to severe degree. This can be seen with toxic metabolic causes, related to medication use. No epileptiform activity was seen in the entire study. When compared to the EEG from yesterday, the background seems to have slightly more slow and more suppressed. * Repeat CT head 09/29/2022 revealed evolution of the left frontal no parietal acute/subacute CVA. Small area of decreased attenuation right frontal lobe as well noticeable. I personally reviewed CT head, agree with the findings. * Carotid Doppler, revealed less than 50% stenosis of bilateral carotid bifurc ation. Antegrade flow in both vertebral arteries.. * 2-D echo Revealed paced rhythm, preserved LV systolic function. EF is 50- 55%. Left atrial size is normal. No embolic source. * Fasting a.m. lipid panel cholesterol 94, LDL 27, HDL 28, triglycerides 191. LDL well controlled. * Hemoglobin A1c 6.0. * Aspirin 325 mg daily. * discussed with patient's daughter and son in detail, reviewed current computed tomography scan of the head on the computer, informed her about overall very guarded prognosis for meaningful recovery due to the matter of fact, that patient already had significant short-term memory impairment from his history of TBI in 1996. With this current extensive CVA involving dominant hemisphere, patient probably will have severe speech deficits, hemiparesis and worsening cognitive functions. He notified her that Prognosis for meaningful recovery appears low. Patient appears critically sick at this time. * Please avoid sedation as much as possible for better neurological evaluation. * I discussed with the patient's daughter and the son via phone on 10/04/2022 and they would like to pursue with medical management and if no improvement do wn the line to consider withdrawal of care. * Other management as per critical care, IM and other specialties. The plan is discussed with her nurse. Time with Patient: Less than 30
--- NOTE | 2022-10-05 14:33 | PN ---
PROGRESS NOTE SUBJECTIVE: The patient is admitted to hospital with CVA, vent-requiring respiratory failure, and seizure. This morning, he is still intubated on vent. He is more responsive than he had been over the weekend. Blood pressures were poorly controlled; hence, his medications have been adjusted. OBJECTIVE: VITAL SIGNS: Heart rate is 63 beats per minute, blood pressure is 140/68, respiratory rate is 18. CHEST: Reveals diminished air entry at the bases. HEART: Reveals first and second heart sounds. No gallop. Has a systolic murmur at the left lower sternal border. ABDOMEN: Soft. EXTREMITIES: Did not reveal any edema. Peripheral pulses are felt. ASSESSMENT: 1. Severe uncontrolled hypertension. 2. Cerebrovascular accident. 3. Vent-requiring respiratory failure. 4. Bradycardia. PLAN: We will continue current medications. Prognosis is guarded. MMROBLESL / NATHALIEN: [id number] /
[2022-10-05] MEDS: NITROGLYCERIN-D5W PMX 50 MG in DEXTROSE/WATER 1 250ML.BAG IV SCH (15:10)
[2022-10-05] MEDS: NICOTINE 14MG/24HR PATCH TRANSDERM SCH (16:03)
[2022-10-05] MEDS: NOREPINEPHRINE 4 MG in SODIUM CHLORIDE 0.9% 250 ML IV SCH (16:22)
[2022-10-05] MEDS: DOPamine DRIP 800 MG in DEXTROSE/WATER 1 250ML.BAG IV SCH (16:23)
[2022-10-05 18:04] LABS: Glucose,Whole Blood 121 mg/dL (70-110)
[2022-10-05] MEDS: allopurinoL 100 MG TAB PO SCH (20:00)
[2022-10-05] MEDS: hydrALAZINE HCL 20 MG/ML 1 ML VIAL IVP PRN (21:15)
[2022-10-06 01:12] LABS: Glucose,Whole Blood 130 mg/dL (70-110)
[2022-10-06] MEDS: INSULIN ASPART (NovoLOG) 100 UNIT/ML VIAL SQ SCH ×5 (01:13→23:58)
[2022-10-06] MEDS: HYDROmorphone 1 MG/ML 1 ML SYRINGE IVP PRN ×4 (01:14→21:14)
[2022-10-06] MEDS: DEXAMETHASONE SOD PHOSPHATE 4 MG/ML 1 ML VIAL IVP SCH ×4 (01:15→18:06)
[2022-10-06] MEDS: DEXMEDETOMIDINE/0.9% NACL(PMX) 400 MCG in EMPTY BAG 1 BAG IV SCH (03:58)
[2022-10-06] MEDS: CLEVIDIPINE BUTYRATE 25 MG in EMPTY BAG 1 BAG IV SCH ×7 (03:59→22:59)
[2022-10-06 05:14] LABS: Glucose,Whole Blood 140 mg/dL (70-110)
[2022-10-06 05:22] LABS: Basophils % (A) 0 %; Eosinophils % (A) 0 %; HCT 34.8 % (39.0-53.0); HGB 11.4 gm/dL (13.0-17.5); Lymphocytes # (A) 0.7 k/uL (1.0-4.8); Lymphocytes % (A) 7 %; MCH 31.4 pg (25.0-35.0); MCHC 32.9 g/dL (31.0-37.0); MCV 95.4 fL (80.0-100.0); Mean Platelet Volume 9.7; Monocytes # (A) 0.8 k/uL (0-1.0); Monocytes % (A) 7 %; Neutrophils # (A) 8.9 k/uL (1.3-7.7); Neutrophils % (A) 84 %; Platelet Count 221 k/uL (150-450); RBC 3.64 m/uL (4.30-5.90); RDW 13.8 % (11.5-15.5); WBC 10.5 k/uL (3.8-10.6)
[2022-10-06 05:30] LABS: African American GFR (CKD) >90 (>60 ml/min/1.73 sqM); Anion Gap 4 mmol/L; Blood Urea Nitrogen 38 mg/dL (9-20); Calcium 8.3 mg/dL (8.4-10.2); Carbon Dioxide 23 mmol/L (22-30); Chloride 112 mmol/L (98-107); Glucose 140 mg/dL (74-99); Magnesium 1.8 mg/dL (1.6-2.3); Non-African American GFR(CKD) >90 (>60 ml/min/1.73 sqM); Potassium 4.1 mmol/L (3.5-5.1); Sodium 139 mmol/L (137-145)
[2022-10-06] MEDS: SODIUM CHLORIDE 0.9% 1,000 ML IV SCH ×2 (05:55→18:10)
--- NOTE | 2022-10-06 07:51 | P.PN ---
Subjective Progress Note Date: 10/06/22 Principal diagnosis: Hypertension emergency This is a 58-year-old gentleman who was admitted to the hospital with a change in mental status with possible CVA as well as a seizure. Currently he is intubated and he is on mechanical ventilation. We consulted to see the patient for hypertension management. The patient remains intubated. PEG is in process to be done and he potentially might have anoxic encephalopathy. The pressure remains elevated in spite of the current medical regimen. He continues to be in sinus mechanism and sinus tachycardia. I am going to go up with the dose of losartan and we might need to consider adding beta enoch to the current medical regimen. Continue IV calcium channel enoch. Continue hydralazine when necessary. October 062022 The patient was seen this morning. He continues to be intubated on mechanical ventilation. The pressure remains elevated. I'm going to replace atenolol with carvedilol and add hydrochlorothiazide to the current medical regimen. We will continue monitor the pressure and adjust medications to control the pressure if we need to. Assessment Change in mental status Possible CVA Possible seizure disorder Hypertension emergency Plan Continue hydralazine when necessary Start the patient on carvedilol Start the patient on hydrochlorothiazide Objective - Vital Signs Vital signs: Vital Signs Temp 98.0 F 10/06/22 04:00 Pulse 69 10/06/22 07:00 Resp 20 10/06/22 07:00 BP 178/71 10/06/22 07:00 Pulse Ox 97 10/06/22 06:45 FiO2 40 10/06/22 04:00 Intake & Output 10/05/22 10/06/22 10/06/22 18:59 06:59 18:59 Intake Total 2955.075 1278.244 111.55 Output Total 830 970 295 Balance 968.749 258.244 -183.45 Weight 84.4 kg Intake: IV 858 936 88 0.9 @ KVO 100 10 ART 33 36 3 Sodium Chloride 0.9% 1, 825 750 75 000 ml @ 75 mls/hr IV . [id number] [facility] Rx#:[id number] cefTRIAXone 2 gm In 50 Sodium Chloride 0.9% 50 ml @ 100 mls/hr IVPB Q24H [facility] Rx#:[id number] Intake, IV Titration 770.749 162.244 13.55 Amount Clevidipine Butyrate 25 93.668 36.667 mg In Empty Bag 1 bag @ 1 MG/HR 2 mls/hr IV .Q24H [facility] Rx#:[id number] Dexmedetomidine/0.9% NaCl 44.987 125.577 13.55 (Pmx) 400 mcg In Empty Bag 1 bag @ 0.2 MCG/KG/HR 4.065 mls/hr IV .Q24H [facility] Rx#:[id number] Magnesium Sulfate-D5w Pmx 400 1 gm In Dextrose/Water 1 100ml.bag @ 100 mls/hr IVPB Q1H [facility] Rx#: [id number] Nitroglycerin-D5w Pmx 50 93.275 mg In Dextrose/Water 1 250ml.bag @ 5 MCG/MIN 1.5 mls/hr IV .Q24H [facility] Rx#: [id number] propofoL 1,000 mg In 138.819 Empty Bag 1 bag @ 15 MCG/ KG/MIN 6.45 mls/hr IV . [id number] [facility] Rx#:[id number] Tube Feeding 110 70 10 Other 60 60 Output: Urine 830 970 295 Other: Voiding Method Indwelling Catheter Indwelling Catheter # Bowel Movements 1 ABP, PAP, CO, CI - Last Documented Arterial Blood Pressure 181/92 - Labs CBC & Chem 7: 10/06/22 05:13 10/06/22 05:13 Labs: Abnormal Lab Results - Last 24 Hours (Table) 10/05/22 10/05/22 10/06/22 Range/Units 11:44 18:03 01:10 RBC (4.30-5.90) m/uL Hgb (13.0-17.5) gm/dL Hct (39.0-53.0) % Neutrophils # (1.3-7.7) k/uL Lymphocytes # (1.0-4.8) k/uL Chloride (98-107) mmol/L BUN (9-20) mg/dL Glucose (74-99) mg/dL POC Glucose (mg/dL) 175 H 121 H 130 H (70-110) mg/dL Calcium (8.4-10.2) mg/dL 10/06/22 10/06/22 10/06/22 Range/Units 05:12 05:13 05:13 RBC 3.64 L (4.30-5.90) m/uL Hgb 11.4 L (13.0-17.5) gm/dL Hct 34.8 L (39.0-53.0) % Neutrophils # 8.9 H (1.3-7.7) k/uL Lymphocytes # 0.7 L (1.0-4.8) k/uL Chloride 112 H (98-107) mmol/L BUN 38 H (9-20) mg/dL Glucose 140 H (74-99) mg/dL POC Glucose (mg/dL) 140 H (70-110) mg/dL Calcium 8.3 L (8.4-10.2) mg/dL Microbiology - Last 24 Hours (Table) 09/30/22 03:10 Blood Culture - Final Blood
[2022-10-06] MEDS: IPRATROPIUM-ALBUTEROL 3 ML NEB INHALATION SCH ×4 (08:08→20:09)
--- NOTE | 2022-10-06 08:14 | XR ---
EXAMINATION TYPE: XR chest 1V portable DATE OF EXAM: 10/06/2022 COMPARISON: 10/05/2022 HISTORY: Abnormal x-ray TECHNIQUE: Single frontal view of the chest is obtained. FINDINGS: Bilateral lower lobe infiltrate and small left effusion. Chronic deformity left lower rib cage. ET and NG tubes stable. Right-sided central line stable. No sizable pneumothorax or overt failu re. Arthropathy of the shoulders. IMPRESSION: Bilateral lower lobe infiltrate and small left pleural effusion.
[2022-10-06] MEDS: CHLORHEXIDINE GLUCONATE 15 ML CUP MUCOUS MEM SCH ×2 (08:22→21:13)
[2022-10-06] MEDS: PANTOPRAZOLE 40 MG/10 ML VIAL IV SCH (08:23)
[2022-10-06] MEDS: levETIRAcetam IV 500 MG/5 ML VIAL IVP SCH ×2 (08:23→21:13)
[2022-10-06] MEDS: SENNOSIDES 8.6 MG TAB PO SCH ×2 (08:23→21:14)
[2022-10-06] MEDS: HEPARIN SODIUM,PORCINE/PF 5,000 UNIT/0.5 ML SYRINGE SQ SCH ×2 (08:23→21:13)
[2022-10-06] MEDS: ASPIRIN 325 MG TAB PO SCH (08:23)
[2022-10-06] MEDS: allopurinoL 100 MG TAB PO SCH ×2 (08:23→21:13)
[2022-10-06] MEDS: NICOTINE 14MG/24HR PATCH TRANSDERM SCH (08:23)
[2022-10-06] MEDS: LOSARTAN 50 MG TAB PO SCH ×2 (08:23→21:13)
[2022-10-06] MEDS: carvediloL 6.25 MG TAB PO SCH ×2 (08:23→18:06)
[2022-10-06] MEDS: hydroCHLOROthiazide 25 MG TAB PO SCH (08:27)
[2022-10-06 08:40] LABS: ABG Base Excess 0.3 mmol/L; ABG HCO3 24 mmol/L (21-25); ABG Oxygen Saturation 96.8 % (94-97); ABG PCO2 35 mmHg (35-45); ABG PH 7.45 (7.35-7.45); ABG PO2 87 mmHg (83-108); ABG TCO2 25 mmol/L (19-24); Allen Test Performed? Yes
[2022-10-06] MEDS ORDERED: atenoloL 50 MG TAB PO SCH (09:00)
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
[2022-10-06] MEDS ORDERED: MAGNESIUM SULFATE-D5W PMX 1 GM in DEXTROSE/WATER 1 100ML.BAG IVPB ONE (11:36)
[2022-10-06 11:45] LABS: Glucose,Whole Blood 126 mg/dL (70-110)
[2022-10-06] MEDS: NITROGLYCERIN-D5W PMX 50 MG in DEXTROSE/WATER 1 250ML.BAG IV SCH (11:53)
[2022-10-06] MEDS: hydrALAZINE HCL 20 MG/ML 1 ML VIAL IVP PRN (12:20)
[2022-10-06] MEDS: NOREPINEPHRINE 4 MG in SODIUM CHLORIDE 0.9% 250 ML IV SCH (13:23)
[2022-10-06] MEDS: DOPamine DRIP 800 MG in DEXTROSE/WATER 1 250ML.BAG IV SCH (13:24)
--- NOTE | 2022-10-06 13:37 | P.PN ---
Subjective Progress Note Date: 10/06/22 The patient is seen at bedside and is accompanied with his son. He was on IV Precedex 0.9mcg/kg/hr that was held in the morning. Per the son, he is doing much better and is awake and moving all extremities except the right upper extremity. Objective - Vital Signs Vital signs: Vital Signs Temp 98.1 F 10/06/22 12:00 Pulse 86 10/06/22 12:03 Resp 17 10/06/22 12:00 BP 182/83 10/06/22 12:00 Pulse Ox 97 10/06/22 12:00 FiO2 40 10/06/22 11:55 Intake & Output 10/05/22 10/06/22 10/06/22 18:59 06:59 18:59 Intake Total 3348.535 1942.244 805.798 Output Total 510 198 1046 Balance 968.749 258.244 -689.202 Weight 84.4 kg Intake: IV 858 936 463 0.9 @ KVO 100 10 ART 33 36 3 Sodium Chloride 0.9% 1, 825 750 450 000 ml @ 75 mls/hr IV . [id number] [facility] Rx#:[id number] cefTRIAXone 2 gm In 50 Sodium Chloride 0.9% 50 ml @ 100 mls/hr IVPB Q24H [facility] Rx#:[id number] Intake, IV Titration 770.749 162.244 222.798 Amount Clevidipine Butyrate 25 93.668 36.667 83.333 mg In Empty Bag 1 bag @ 1 MG/HR 2 mls/hr IV .Q24H [facility] Rx#:[id number] Dexmedetomidine/0.9% NaCl 44.987 125.577 39.465 (Pmx) 400 mcg In Empty Bag 1 bag @ 0.2 MCG/KG/HR 4.065 mls/hr IV .Q24H [facility] Rx#:[id number] Magnesium Sulfate-D5w Pmx 100 1 gm In Dextrose/Water 1 100ml.bag @ 100 mls/hr IVPB ONCE ONE Rx#: [id number] Magnesium Sulfate-D5w Pmx 400 1 gm In Dextrose/Water 1 100ml.bag @ 100 mls/hr IVPB Q1H [facility] Rx#: [id number] Nitroglycerin-D5w Pmx 50 93.275 mg In Dextrose/Water 1 250ml.bag @ 5 MCG/MIN 1.5 mls/hr IV .Q24H [facility] Rx#: [id number] propofoL 1,000 mg In 138.819 Empty Bag 1 bag @ 15 MCG/ KG/MIN 6.45 mls/hr IV . [id number] [facility] Rx#:[id number] Oral 0 Tube Feeding 110 70 60 Other 60 60 60 Output: Urine 054 426 2793 Other: Voiding Method Indwelling Catheter Indwelling Catheter Indwelling Catheter # Bowel Movements 1 ABP, PAP, CO, CI - Last Documented Arterial Blood Pressure 188/176 - Exam Respiratory: Intubated on vent. Neuro IV Precedex 0.9mcg/kg/hr is held for 2-2 1/2 hrs prior to examining him. Is awake, alert. No following commands or attempting to verbalize. Pupils are round, equal and reactive to light. He is tracking throughout. No facial weakness. Motor: strength is limited in assessment but if lifting all extremities above gravity on own except the right upper seems 0/5. - Labs CBC & Chem 7: 10/06/22 05:13 10/06/22 05:13 Labs: Abnormal Lab Results - Last 24 Hours (Table) 10/05/22 10/06/22 10/06/22 Range/Units 18:03 01:10 05:12 RBC (4.30-5.90) m/uL Hgb (13.0-17.5) gm/dL Hct (39.0-53.0) % Neutrophils # (1.3-7.7) k/uL Lymphocytes # (1.0-4.8) k/uL ABG Total CO2 (19-24) mmol/L Chloride (98-107) mmol/L BUN (9-20) mg/dL Glucose (74-99) mg/dL POC Glucose (mg/dL) 121 H 130 H 140 H (70-110) mg/dL Calcium (8.4-10.2) mg/dL 10/06/22 10/06/22 10/06/22 Range/Units 05:13 05:13 05:47 RBC 3.64 L (4.30-5.90) m/uL Hgb 11.4 L (13.0-17.5) gm/dL Hct 34.8 L (39.0-53.0) % Neutrophils # 8.9 H (1.3-7.7) k/uL Lymphocytes # 0.7 L (1.0-4.8) k/uL ABG Total CO2 25 H (19-24) mmol/L Chloride 112 H (98-107) mmol/L BUN 38 H (9-20) mg/dL Glucose 140 H (74-99) mg/dL POC Glucose (mg/dL) (70-110) mg/dL Calcium 8.3 L (8.4-10.2) mg/dL 10/06/22 Range/Units 11:43 RBC (4.30-5.90) m/uL Hgb (13.0-17.5) gm/dL Hct (39.0-53.0) % Neutrophils # (1.3-7.7) k/uL Lymphocytes # (1.0-4.8) k/uL ABG Total CO2 (19-24) mmol/L Chloride (98-107) mmol/L BUN (9-20) mg/dL Glucose (74-99) mg/dL POC Glucose (mg/dL) 126 H (70-110) mg/dL Calcium (8.4-10.2) mg/dL Microbiology - Last 24 Hours (Table) 09/30/22 03:10 Blood Culture - Final Blood Assessment and Plan Assessment: * Patient found unresponsive, hypotensive, 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 Smaller area of acute ischemia also noticeable in the right frontal watershed region as well. Patient was not a TPA candidate because of last known well > 12 hours. 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 * Prolonged EEG for 2.5 hours because of a twitching which was performed on 10/04/2022 and reported as abnormal. No clinical or electrographic seizures were recorded. No epileptiform activity was present. The EEG consisted of di ffuse delta theta slowing with frequencies ranging from 2-5 Hz. And he by relative periods of the electrical suppression. These findings are not epileptiform in nature. These findings indicate severe diffuse cerebral dysfunction and may in part be due to medication effect. No seizure were recorded. No epileptiform activity was present. * Repeat CT head on 10/03/22: Reported as no change in multifocal area of infarction when compared to previous as described above. No acute bleed or mass effect. * Repeat EEG 09/30/2022 was abnormal due to background slowing and intermittent suppression suggestive of generalized encephalopathy of moderate to severe degree. This can be seen with toxic metabolic causes, related to medication use. No epileptiform activity was seen in the entire study. When compared to the EEG from yesterday, the background seems to have slightly more slow and more suppressed. * Repeat CT head 09/29/2022 revealed evolution of the left frontal no parietal acute/subacute CVA. Small area of decreased attenuation right frontal lobe as well noticeable. I personally reviewed CT head, agree with the findings. * Carotid Doppler, revealed less than 50% stenosis of bilateral carotid bifurcation. Antegrade flow in both vertebral arteries.. * 2-D echo Revealed paced rhythm, preserved LV systolic function. EF is 50- 55%. Left atrial size is normal. No embolic source. * Fasting a.m. lipid panel cholesterol 94, LDL 27, HDL 28, triglycerides 191. LDL well controlled. * Hemoglobin A1c 6.0. * Aspirin 325 mg daily. * I examined today while off sedation and he seems to be improving. Is awake, alert, and moving all extremities except the right upper. Son agrees that there is a big improvement. Son is aware if patient cannot keep his airway protected then to Trach and PEG. He wants to continue medical management. Patient has Public Guardian since had TBI in past, but per son they respect family wishes/medical decision. Will attempt to sort out who has decision making. * Other management as per critical care, IM and other specialties. The plan is discussed with his son who is at bedside and ICU attending. Time with Patient: Less than 30
[2022-10-06] MEDS ORDERED: LIDOCAINE 1% INJ 10MG/ML (5 ML VIAL-PF) SQ ONE (14:28)
--- NOTE | 2022-10-06 14:55 | XR ---
EXAMINATION TYPE: XR chest 1V DATE OF EXAM: 10/06/2022 Stable. COMPARISON: 10/06/2022 HISTORY: PICC line placement TECHNIQUE: Single frontal view of the chest is obtained. FINDINGS: Right-sided PICC line seen with the tip overlying the right atrial caval junction. ET and NG tubes stable. Right-sided central line is been removed. No sizable pneumothorax. Bilateral consoli dation. Heart size normal. No pneumothorax. IMPRESSION: 1. PICC line in good position. 2. Bilateral lower lobe pneumonia. Stable.
--- NOTE | 2022-10-06 15:07 | IR ---
PICC LINE PLACEMENT: HISTORY: TPN requiring long-term antibiotic therapy PROCEDURE: Ultrasound guidance of PICC line placement. COMPLICATIONS: None ANESTHESIA: 1. 1% Lidocaine locally. FINDINGS/TECHNIQUE: The procedure was explained to the patient. The risks, complications, benefits and alternatives were discussed and any questions were answered. Informed consent was obtained. The patient was placed supine on the fluoroscopic table and prepped and draped in the usual sterile fash ion. Utilizing a 21 gauge needle and sonographic guidance, access in the right basilic vein was ach ieved and there is placement of a 0.018 guidewire. The vein is patent. A 5-F. sheath was placed ove r the guidewire. The guidewire and dilator were removed and a 5-F. Double lumen PICC line was placed through the sheath with the chest x-ray confirming the tip at the level of the SVC. The sheath was removed, the catheter was flushed and sutured into position. The patient was stable throughout the p rocedure and remained stable upon discharge from the Department of Radiology. The vein puncture was patent under ultrasound. A tam scale image was obtained to document patency of the vein punctured. All elements of the maximal barrier technique were utilized. IMPRESSION: 1. Successful PICC line placement under ultrasound performed bedside within the ICU.
--- NOTE | 2022-10-06 15:14 | P.PN ---
Subjective Progress Note Date: 10/06/22 CHIEF COMPLAINT: Altered mental status HISTORY OF PRESENT ILLNESS: This is a 57-year-old male who presented with altered mental status. He was found to have evidence of an ischemic stroke. He had ventilator-dependent respiratory failure. He remains on mechanical ventilation. Currently off sedation and opening his eyes. Patient does have a past history of TBI. They have been unable to wean him from the vent. Surgical service has been consulted for trach and PEG tube placement. His BP was elevated and seen by cardiology. Medications were adjusted. PAST MEDICAL HISTORY: See below PAST SURGICAL HISTORY: See below MEDICATIONS: See below ALLERGIES: See below SOCIAL HISTORY: No illicit drug use. REVIEW OF SYSTEMS: CONSTITUTIONAL: Denies fever or chills. HEENT: Denies blurred vision, vision changes, or eye pain. Denies hemoptysis CARDIOVASCULAR: Denies chest pain or pressure. RESPIRATORY: No shortness of breath. GASTROINTESTINAL: See HPI for pertinent findings HEMATOLOGIC: Denies bleeding disorders. GENITOURINARY: Denies any blood in urine or increased urinary frequency. SKIN: Denies pruitis. Denies rash. PHYSICAL EXAM: VITAL SIGNS: Reviewed GENERAL: Well-developed in no acute distress. ABDOMEN: Soft. Nondistended. Nontender NEUROLOGIC: Awake. LABORATORY DATA: WBC 10.5 Hgb 11.4 platelets 221 Sodium 139 potassium 4.1 creatinine 0.66 magnesium 1.8 Albumin 4.4 IMAGING: Chest x-ray bilateral lobe pneumonia stable ASSESSMENT: 1. Ischemic CVA 2. Ventilator dependent respiratory failure 3. Mild protein calorie malnutrition PLAN: -Patient scheduled for tracheostomy and PEG tube placement tomorrow with Dr. gomez -Hold tube feedings after midnight -Hold subcu heparin in AM Thank you for this consultation Physician Human Resources Office Assistant note has been reviewed by physician. Signing provider agrees with the documented findings, assessment, and plan of care. Objective - Vital Signs Vital signs: Vital Signs Temp 98.1 F 10/06/22 12:00 Pulse 130 H 10/06/22 14:00 Resp 27 H 10/06/22 14:00 BP 170/117 10/06/22 14:00 Pulse Ox 94 L 10/06/22 14:00 FiO2 40 10/06/22 11:55 Intake & Output 10/05/22 10/06/22 10/06/22 18:59 06:59 18:59 Intake Total 6097.549 9677.244 975.798 Output Total 680 348 2346 Balance 968.749 258.244 -1044.202 Weight 84.4 kg Intake: IV 858 936 613 0.9 @ KVO 100 10 ART 33 36 3 Sodium Chloride 0.9% 1, 825 750 600 000 ml @ 75 mls/hr IV . [id number] [facility] Rx#:[id number] cefTRIAXone 2 gm In 50 Sodium Chloride 0.9% 50 ml @ 100 mls/hr IVPB Q24H [facility] Rx#:[id number] Intake, IV Titration 770.749 162.244 222.798 Amount Clevidipine Butyrate 25 93.668 36.667 83.333 mg In Empty Bag 1 bag @ 1 MG/HR 2 mls/hr IV .Q24H [facility] Rx#:[id number] Dexmedetomidine/0.9% NaCl 44.987 125.577 39.465 (Pmx) 400 mcg In Empty Bag 1 bag @ 0.2 MCG/KG/HR 4.065 mls/hr IV .Q24H [facility] Rx#:[id number] Magnesium Sulfate-D5w Pmx 100 1 gm In Dextrose/Water 1 100ml.bag @ 100 mls/hr IVPB ONCE ONE Rx#: [id number] Magnesium Sulfate-D5w Pmx 400 1 gm In Dextrose/Water 1 100ml.bag @ 100 mls/hr IVPB Q1H [facility] Rx#: [id number] Nitroglycerin-D5w Pmx 50 93.275 mg In Dextrose/Water 1 250ml.bag @ 5 MCG/MIN 1.5 mls/hr IV .Q24H [facility] Rx#: [id number] propofoL 1,000 mg In 138.819 0 Empty Bag 1 bag @ 15 MCG/ KG/MIN 6.45 mls/hr IV . [id number] [facility] Rx#:[id number] Oral 0 Tube Feeding 110 70 80 Other 60 60 60 Output: Urine 696 500 5391 Other: Voiding Method Indwelling Catheter Indwelling Catheter Indwelling Catheter # Bowel Movements 1 ABP, PAP, CO, CI - Last Documented Arterial Blood Pressure 188/176 - Labs CBC & Chem 7: 10/06/22 05:13 10/06/22 05:13 Labs: Abnormal Lab Results - Last 24 Hours (Table) 10/05/22 10/06/22 10/06/22 Range/Units 18:03 01:10 05:12 RBC (4.30-5.90) m/uL Hgb (13.0-17.5) gm/dL Hct (39.0-53.0) % Neutrophils # (1.3-7.7) k/uL Lymphocytes # (1.0-4.8) k/uL ABG Total CO2 (19-24) mmol/L Chloride (98-107) mmol/L BUN (9-20) mg/dL Glucose (74-99) mg/dL POC Glucose (mg/dL) 121 H 130 H 140 H (70-110) mg/dL Calcium (8.4-10.2) mg/dL 10/06/22 10/06/22 10/06/22 Range/Units 05:13 05:13 05:47 RBC 3.64 L (4.30-5.90) m/uL Hgb 11.4 L (13.0-17.5) gm/dL Hct 34.8 L (39.0-53.0) % Neutrophils # 8.9 H (1.3-7.7) k/uL Lymphocytes # 0.7 L (1.0-4.8) k/uL ABG Total CO2 25 H (19-24) mmol/L Chloride 112 H (98-107) mmol/L BUN 38 H (9-20) mg/dL Glucose 140 H (74-99) mg/dL POC Glucose (mg/dL) (70-110) mg/dL Calcium 8.3 L (8.4-10.2) mg/dL 10/06/22 Range/Units 11:43 RBC (4.30-5.90) m/uL Hgb (13.0-17.5) gm/dL Hct (39.0-53.0) % Neutrophils # (1.3-7.7) k/uL Lymphocytes # (1.0-4.8) k/uL ABG Total CO2 (19-24) mmol/L Chloride (98-107) mmol/L BUN (9-20) mg/dL Glucose (74-99) mg/dL POC Glucose (mg/dL) 126 H (70-110) mg/dL Calcium (8.4-10.2) mg/dL Microbiology - Last 24 Hours (Table) 09/30/22 03:10 Blood Culture - Final Blood
[2022-10-06 17:48] LABS: Glucose,Whole Blood 135 mg/dL (70-110)
[2022-10-06 23:51] LABS: Glucose,Whole Blood 144 mg/dL (70-110)
[2022-10-07] MEDS: DEXAMETHASONE SOD PHOSPHATE 4 MG/ML 1 ML VIAL IVP SCH ×5 (00:22→23:34)
[2022-10-07] MEDS: HYDROmorphone 1 MG/ML 1 ML SYRINGE IVP PRN ×5 (01:26→23:23)
[2022-10-07] MEDS: CLEVIDIPINE BUTYRATE 25 MG in EMPTY BAG 1 BAG IV SCH ×6 (02:07→23:23)
[2022-10-07 05:44] LABS: Glucose,Whole Blood 134 mg/dL (70-110)
[2022-10-07] MEDS: INSULIN ASPART (NovoLOG) 100 UNIT/ML VIAL SQ SCH ×4 (05:46→23:34)
[2022-10-07] MEDS: SODIUM CHLORIDE 0.9% 1,000 ML IV SCH ×3 (06:01→20:03)
[2022-10-07 06:14] LABS: Basophils # (A) 0.1 k/uL (0-0.2); Basophils % (A) 0 %; Eosinophils # (A) 0.1 k/uL (0-0.7); Eosinophils % (A) 1 %; HCT 39.8 % (39.0-53.0); HGB 13.2 gm/dL (13.0-17.5); Lymphocytes # (A) 1.3 k/uL (1.0-4.8); Lymphocytes % (A) 9 %; MCH 31.5 pg (25.0-35.0); MCHC 33.1 g/dL (31.0-37.0); MCV 95.3 fL (80.0-100.0); Mean Platelet Volume 10.2; Monocytes # (A) 0.8 k/uL (0-1.0); Monocytes % (A) 5 %; Neutrophils # (A) 12.6 k/uL (1.3-7.7); Neutrophils % (A) 84 %; Platelet Count 248 k/uL (150-450); RBC 4.18 m/uL (4.30-5.90); RDW 13.6 % (11.5-15.5)
[2022-10-07 06:16] LABS: ABG Base Excess 1.9 mmol/L; ABG HCO3 26 mmol/L (21-25); ABG Oxygen Saturation 99.4 % (94-97); ABG PCO2 38 mmHg (35-45); ABG PH 7.45 (7.35-7.45); ABG PO2 165 mmHg (83-108); ABG TCO2 27 mmol/L (19-24); Allen Test Performed? Yes
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
[2022-10-07 06:29] LABS: African American GFR (CKD) >90 (>60 ml/min/1.73 sqM); Anion Gap 7 mmol/L; Blood Urea Nitrogen 31 mg/dL (9-20); Calcium 8.4 mg/dL (8.4-10.2); Carbon Dioxide 22 mmol/L (22-30); Chloride 109 mmol/L (98-107); Glucose 129 mg/dL (74-99); Magnesium 1.7 mg/dL (1.6-2.3); Non-African American GFR(CKD) >90 (>60 ml/min/1.73 sqM); Sodium 138 mmol/L (137-145)
[2022-10-07] MEDS: carvediloL 6.25 MG TAB PO SCH ×2 (06:46→16:42)
[2022-10-07] MEDS: HEPARIN SODIUM,PORCINE/PF 5,000 UNIT/0.5 ML SYRINGE SQ SCH ×2 (08:03→21:37)
[2022-10-07] MEDS: IPRATROPIUM-ALBUTEROL 3 ML NEB INHALATION SCH ×4 (08:05→20:34)
--- NOTE | 2022-10-07 08:32 | XR ---
EXAMINATION TYPE: XR chest 1V portable DATE OF EXAM: 10/07/2022 COMPARISON: NONE HISTORY: Shortness of breath TECHNIQUE: Single frontal view of the chest is obtained. FINDINGS: ET and NG tube are stable. Central line stable. Bilateral consolidation is tiny left effus ion. Chronic deformity left rib. No pneumothorax. Mild interstitial prominence. IMPRESSION: Bilateral lower lobe infiltrate stable.
[2022-10-07] MEDS: LOSARTAN 50 MG TAB PO SCH ×2 (09:19→21:21)
[2022-10-07] MEDS: ASPIRIN 325 MG TAB PO SCH (09:19)
[2022-10-07] MEDS: NICOTINE 14MG/24HR PATCH TRANSDERM SCH (09:19)
[2022-10-07] MEDS: hydroCHLOROthiazide 25 MG TAB PO SCH (09:19)
[2022-10-07] MEDS: allopurinoL 100 MG TAB PO SCH ×2 (09:19→21:21)
[2022-10-07] MEDS: SENNOSIDES 8.6 MG TAB PO SCH ×2 (09:19→21:21)
[2022-10-07] MEDS: CHLORHEXIDINE GLUCONATE 15 ML CUP MUCOUS MEM SCH ×2 (09:19→21:37)
[2022-10-07] MEDS: PANTOPRAZOLE 40 MG/10 ML VIAL IV SCH (09:20)
[2022-10-07] MEDS: levETIRAcetam IV 500 MG/5 ML VIAL IVP SCH ×2 (09:20→21:37)
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
[2022-10-07] MEDS ORDERED: PROPOFOL 10 MG/ML 20 ML VIAL IV ONE (10:14)
[2022-10-07] MEDS ORDERED: ROCURONIUM 10 MG/ML (5 ML VIAL) IV ONE (10:14)
[2022-10-07] MEDS ORDERED: MIDAZOLAM 2 MG/2 ML VIAL ONE (10:14)
[2022-10-07] MEDS ORDERED: SODIUM CHLORIDE 0.9% 100 ML BAG ONE (10:14)
[2022-10-07] MEDS ORDERED: fentaNYL (PF) 50 MCG/ML 2 ML AMP ONE (10:14)
[2022-10-07] MEDS ORDERED: ceFAZolin 1,000 MG VIAL ONE (10:14)
[2022-10-07 11:32] LABS: Glucose,Whole Blood 117 mg/dL (70-110)
[2022-10-07 17:43] LABS: Glucose,Whole Blood 122 mg/dL (70-110)
[2022-10-07] MEDS: DOPamine DRIP 800 MG in DEXTROSE/WATER 1 250ML.BAG IV SCH (20:04)
--- NOTE | 2022-10-07 21:02 | P.PN ---
Subjective Progress Note Date: 10/07/22 Principal diagnosis: Hypertension emergency This is a 58-year-old gentleman who was admitted to the hospital with a change in mental status with possible CVA as well as a seizure. Currently he is intubated and he is on mechanical ventilation. We consulted to see the patient for hypertension management. The patient remains intubated. PEG is in process to be done and he potentially might have anoxic encephalopathy. The pressure remains elevated in spite of the current medical regimen. He continues to be in sinus mechanism and sinus tachycardia. I am going to go up with the dose of losartan and we might need to consider adding beta enoch to the current medical regimen. Continue IV calcium channel enoch. Continue hydralazine when necessary. October 062022 The patient was seen this morning. He continues to be intubated on mechanical ventilation. The pressure remains elevated. I'm going to replace atenolol with carvedilol and add hydrochlorothiazide to the current medical regimen. We will continue monitor the pressure and adjust medications to control the pressure if we need to. October 072022 The patient was seen and evaluated this morning. He continues to be on mechanical ventilation. The pressure appears to be under reasonable control on the current medical regimen. Assessment Change in mental status Possible CVA Possible seizure disorder Hypertension emergency Plan Continue the current medical regimen Follow-up with the patient Objective - Vital Signs Vital signs: Vital Signs Temp 99.1 F 10/07/22 20:00 Pulse 48 L 10/07/22 20:45 Resp 16 10/07/22 20:45 BP 151/73 10/07/22 20:45 Pulse Ox 97 10/07/22 20:45 FiO2 40 10/07/22 20:30 Intake & Output 10/07/22 10/07/22 10/08/22 06:59 18:59 06:59 Intake Total 9546.868 0682.317 262.883 Output Total 1760 2725 500 Balance -231.741 -1536.683 -237.117 Weight 81.5 kg 81.5 kg Intake: IV 1000 900 150 Sodium Chloride 0.9% 1, 900 900 150 000 ml @ 75 mls/hr IV . [id number] [facility] Rx#:[id number] cefTRIAXone 2 gm In 100 Sodium Chloride 0.9% 50 ml @ 100 mls/hr IVPB Q24H [facility] Rx#:[id number] Intake, IV Titration 418.259 288.317 112.883 Amount Clevidipine Butyrate 25 155.600 78.667 44.8 mg In Empty Bag 1 bag @ 1 MG/HR 2 mls/hr IV .Q24H [facility] Rx#:[id number] propofoL 1,000 mg In 262.659 209.650 68.083 Empty Bag 1 bag @ 15 MCG/ KG/MIN 6.45 mls/hr IV . [id number] [facility] Rx#:[id number] Oral 0 Tube Feeding 50 Other 60 Output: Urine 1760 2720 500 Estimated Blood Loss 5 Other: Voiding Method Indwelling Catheter Indwelling Catheter Indwelling Catheter ABP, PAP, CO, CI - Last Documented Arterial Blood Pressure 188/176 - Labs CBC & Chem 7: 10/07/22 05:56 10/07/22 05:56 Labs: Abnormal Lab Results - Last 24 Hours (Table) 10/06/22 10/07/22 10/07/22 Range/Units 23:50 05:43 05:56 WBC (3.8-10.6) k/uL RBC (4.30-5.90) m/uL Neutrophils # (1.3-7.7) k/uL ABG pO2 (83-108) mmHg ABG HCO3 (21-25) mmol/L ABG Total CO2 (19-24) mmol/L ABG O2 Saturation (94-97) % Chloride 109 H (98-107) mmol/L BUN 31 H (9-20) mg/dL Creatinine 0.59 L (0.66-1.25) mg/dL Glucose 129 H (74-99) mg/dL POC Glucose (mg/dL) 144 H 134 H (70-110) mg/dL 10/07/22 10/07/22 10/07/22 Range/Units 05:56 06:15 11:30 WBC 15.0 H (3.8-10.6) k/uL RBC 4.18 L (4.30-5.90) m/uL Neutrophils # 12.6 H (1.3-7.7) k/uL ABG pO2 165 H (83-108) mmHg ABG HCO3 26 H (21-25) mmol/L ABG Total CO2 27 H (19-24) mmol/L ABG O2 Saturation 99.4 H (94-97) % Chloride (98-107) mmol/L BUN (9-20) mg/dL Creatinine (0.66-1.25) mg/dL Glucose (74-99) mg/dL POC Glucose (mg/dL) 117 H (70-110) mg/dL 10/07/22 Range/Units 17:41 WBC (3.8-10.6) k/uL RBC (4.30-5.90) m/uL Neutrophils # (1.3-7.7) k/uL ABG pO2 (83-108) mmHg ABG HCO3 (21-25) mmol/L ABG Total CO2 (19-24) mmol/L ABG O2 Saturation (94-97) % Chloride (98-107) mmol/L BUN (9-20) mg/dL Creatinine (0.66-1.25) mg/dL Glucose (74-99) mg/dL POC Glucose (mg/dL) 122 H (70-110) mg/dL
[2022-10-07 23:30] LABS: Glucose,Whole Blood 113 mg/dL (70-110)
[2022-10-08] MEDS: CLEVIDIPINE BUTYRATE 25 MG in EMPTY BAG 1 BAG IV SCH ×4 (02:36→20:29)
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
[2022-10-08 06:02] LABS: Glucose,Whole Blood 115 mg/dL (70-110)
[2022-10-08] MEDS: DEXAMETHASONE SOD PHOSPHATE 4 MG/ML 1 ML VIAL IVP SCH (06:08)
[2022-10-08] MEDS: INSULIN ASPART (NovoLOG) 100 UNIT/ML VIAL SQ SCH ×3 (06:09→17:58)
[2022-10-08] MEDS: HYDROmorphone 1 MG/ML 1 ML SYRINGE IVP PRN ×5 (06:22→21:22)
[2022-10-08 06:50] LABS: Basophils % (A) 0 %; Eosinophils # (A) 0.1 k/uL (0-0.7); Eosinophils % (A) 0 %; HGB 12.7 gm/dL (13.0-17.5); Lymphocytes # (A) 1.3 k/uL (1.0-4.8); Lymphocytes % (A) 9 %; MCHC 31.8 g/dL (31.0-37.0); MCV 97.2 fL (80.0-100.0); Mean Platelet Volume 8.4; Monocytes # (A) 0.7 k/uL (0-1.0); Monocytes % (A) 5 %; Neutrophils # (A) 11.8 k/uL (1.3-7.7); Neutrophils % (A) 85 %; Platelet Count 250 k/uL (150-450); RBC 4.11 m/uL (4.30-5.90); RDW 13.4 % (11.5-15.5); WBC 13.9 k/uL (3.8-10.6)
[2022-10-08 07:08] LABS: African American GFR (CKD) >90 (>60 ml/min/1.73 sqM); Anion Gap 7 mmol/L; Blood Urea Nitrogen 22 mg/dL (9-20); Calcium 8.5 mg/dL (8.4-10.2); Carbon Dioxide 25 mmol/L (22-30); Chloride 106 mmol/L (98-107); Glucose 120 mg/dL (74-99); Non-African American GFR(CKD) >90 (>60 ml/min/1.73 sqM); Potassium 3.9 mmol/L (3.5-5.1); Sodium 138 mmol/L (137-145)
--- NOTE | 2022-10-08 08:40 | P.PN ---
Subjective Progress Note Date: 10/08/22 Principal diagnosis: Hypertension emergency This is a 58-year-old gentleman who was admitted to the hospital with a change in mental status with possible CVA as well as a seizure. Currently he is intubated and he is on mechanical ventilation. We consulted to see the patient for hypertension management. The patient remains intubated. PEG is in process to be done and he potentially might have anoxic encephalopathy. The pressure remains elevated in spite of the current medical regimen. He continues to be in sinus mechanism and sinus tachycardia. I am going to go up with the dose of losartan and we might need to consider adding beta enoch to the current medical regimen. Continue IV calcium channel enoch. Continue hydralazine when necessary. October 062022 The patient was seen this morning. He continues to be intubated on mechanical ventilation. The pressure remains elevated. I'm going to replace atenolol with carvedilol and add hydrochlorothiazide to the current medical regimen. We will continue monitor the pressure and adjust medications to control the pressure if we need to. October 072022 The patient was seen and evaluated this morning. He continues to be on mechanical ventilation. The pressure appears to be under reasonable control on the current medical regimen. October 082022 The patient was seen and evaluated this morning. He continues to be on mechanical ventilation and currently he does have tracheostomy tube. The pressure remains elevated but they hold the blood pressure medications yesterday. We are going to start him back on his current medical regimen for hypertension. Otherwise from the cardiovascular standpoint of view, continue the current medical regimen. Assessment Change in mental status Possible CVA Possible seizure disorder Hypertension emergency Plan Continue the current medical regimen Follow-up with the patient Objective - Vital Signs Vital signs: Vital Signs Temp 98.5 F 10/08/22 08:00 Pulse 56 L 10/08/22 08:15 Resp 16 10/08/22 08:15 BP 165/75 10/08/22 08:15 Pulse Ox 99 10/08/22 08:15 FiO2 40 10/08/22 08:00 Intake & Output 10/07/22 10/08/22 10/08/22 18:59 06:59 18:59 Intake Total 8726.748 6364.166 150 Output Total 3025 6105 450 Balance -1536.683 -711.834 -300 Weight 81.5 kg 80.6 kg Intake: IV 900 900 150 Sodium Chloride 0.9% 1, 900 900 150 000 ml @ 75 mls/hr IV . [id number] [facility] Rx#:[id number] Intake, IV Titration 288.317 473.166 Amount Clevidipine Butyrate 25 78.667 185.066 mg In Empty Bag 1 bag @ 1 MG/HR 2 mls/hr IV .Q24H [facility] Rx#:[id number] propofoL 1,000 mg In 209.650 288.100 Empty Bag 1 bag @ 15 MCG/ KG/MIN 6.45 mls/hr IV . [id number] [facility] Rx#:[id number] Output: Urine 2720 2085 450 Estimated Blood Loss 5 Other: Voiding Method Indwelling Catheter Indwelling Catheter Indwelling Catheter ABP, PAP, CO, CI - Last Documented Arterial Blood Pressure 188/176 - Labs CBC & Chem 7: 10/08/22 06:32 10/08/22 06:32 Labs: Abnormal Lab Results - Last 24 Hours (Table) 10/07/22 10/07/22 10/07/22 Range/Units 11:30 17:41 23:28 WBC (3.8-10.6) k/uL RBC (4.30-5.90) m/uL Hgb (13.0-17.5) gm/dL Neutrophils # (1.3-7.7) k/uL BUN (9-20) mg/dL Creatinine (0.66-1.25) mg/dL Glucose (74-99) mg/dL POC Glucose (mg/dL) 117 H 122 H 113 H (70-110) mg/dL 10/08/22 10/08/22 10/08/22 Range/Units 06:00 06:32 06:32 WBC 13.9 H (3.8-10.6) k/uL RBC 4.11 L (4.30-5.90) m/uL Hgb 12.7 L (13.0-17.5) gm/dL Neutrophils # 11.8 H (1.3-7.7) k/uL BUN 22 H (9-20) mg/dL Creatinine 0.60 L (0.66-1.25) mg/dL Glucose 120 H (74-99) mg/dL POC Glucose (mg/dL) 115 H (70-110) mg/dL
[2022-10-08] MEDS: IPRATROPIUM-ALBUTEROL 3 ML NEB INHALATION SCH ×4 (08:51→20:19)
[2022-10-08] MEDS ORDERED: POTASSIUM BICARBONATE/CIT AC 20 MEQ TABLET.EFF NG-TUBE SCH (09:00)
[2022-10-08] MEDS: HEPARIN SODIUM,PORCINE/PF 5,000 UNIT/0.5 ML SYRINGE SQ SCH ×2 (09:29→20:39)
[2022-10-08] MEDS: ASPIRIN 325 MG TAB PO SCH (09:30)
[2022-10-08] MEDS: allopurinoL 100 MG TAB PO SCH ×2 (09:30→20:39)
[2022-10-08] MEDS: hydroCHLOROthiazide 25 MG TAB PO SCH (09:30)
[2022-10-08] MEDS: levETIRAcetam IV 500 MG/5 ML VIAL IVP SCH ×2 (09:30→20:55)
[2022-10-08] MEDS: carvediloL 6.25 MG TAB PO SCH ×2 (09:30→17:56)
[2022-10-08] MEDS: SENNOSIDES 8.6 MG TAB PO SCH ×2 (09:30→20:39)
[2022-10-08] MEDS: LOSARTAN 50 MG TAB PO SCH ×2 (09:30→20:39)
[2022-10-08] MEDS: QUEtiapine 25 MG TAB PO SCH ×3 (09:31→20:39)
[2022-10-08] MEDS: PANTOPRAZOLE 40 MG/10 ML VIAL IV SCH (09:31)
[2022-10-08] MEDS: CHLORHEXIDINE GLUCONATE 15 ML CUP MUCOUS MEM SCH ×2 (09:31→20:39)
[2022-10-08] MEDS: NICOTINE 14MG/24HR PATCH TRANSDERM SCH (09:31)
[2022-10-08 11:42] LABS: Glucose,Whole Blood 121 mg/dL (70-110)
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
--- NOTE | 2022-10-08 12:11 | P.PN ---
Subjective Progress Note Date: 10/08/22 CHIEF COMPLAINT: Ischemic CVA HISTORY OF PRESENT ILLNESS: Patient status post tracheostomy and PEG tube p lacement. Postop day #1. PEG tube feedings to be started today. We'll place a consult for [facility] Afebrile WBC is 13.9 Hgb 12.7 PHYSICAL EXAM: VITAL SIGNS: Reviewed. GENERAL: Well-developed in no acute distress. HEENT: Tracheostomy site clean dry and intact ABDOMEN: Soft. Nondistended. PEG tube site clean dry and intact ASSESSMENT: 1. Respiratory failure and protein calorie malnutrition status post tracheostomy and PEG tube placement 2. Ischemic stroke PLAN: -Consult dietitian to start PEG tube feedings today -Continue ICU management -Continue supportive care Physician Senior Government Program Analyst note has been reviewed by physician. Signing provider agrees with the documented findings, assessment, and plan of care. Objective - Vital Signs Vital signs: Vital Signs Temp 98.5 F 10/08/22 08:00 Pulse 53 L 10/08/22 11:00 Resp 16 10/08/22 11:00 BP 162/75 10/08/22 11:00 Pulse Ox 94 L 10/08/22 11:00 FiO2 30 10/08/22 10:36 Intake & Output 10/07/22 10/08/22 10/08/22 18:59 06:59 18:59 Intake Total 5610.110 2537.166 429.825 Output Total 2725 2085 1050 Balance -1536.683 -711.834 -620.175 Weight 81.5 kg 80.6 kg 80.6 kg Intake: IV 900 900 375 Sodium Chloride 0.9% 1, 900 900 375 000 ml @ 75 mls/hr IV . [id number] [facility] Rx#:[id number] Intake, IV Titration 288.317 473.166 54.825 Amount Clevidipine Butyrate 25 78.667 185.066 mg In Empty Bag 1 bag @ 1 MG/HR 2 mls/hr IV .Q24H [facility] Rx#:[id number] propofoL 1,000 mg In 209.650 288.100 54.825 Empty Bag 1 bag @ 15 MCG/ KG/MIN 6.45 mls/hr IV . [id number] [facility] Rx#:[id number] Output: Urine 2720 2085 1050 Estimated Blood Loss 5 Other: Voiding Method Indwelling Catheter Indwelling Catheter Indwelling Catheter ABP, PAP, CO, CI - Last Documented Arterial Blood Pressure 188/176 - Labs CBC & Chem 7: 10/08/22 06:32 10/08/22 06:32 Labs: Abnormal Lab Results - Last 24 Hours (Table) 10/07/22 10/07/22 10/08/22 Range/Units 17:41 23:28 06:00 WBC (3.8-10.6) k/uL RBC (4.30-5.90) m/uL Hgb (13.0-17.5) gm/dL Neutrophils # (1.3-7.7) k/uL BUN (9-20) mg/dL Creatinine (0.66-1.25) mg/dL Glucose (74-99) mg/dL POC Glucose (mg/dL) 122 H 113 H 115 H (70-110) mg/dL 10/08/22 10/08/22 10/08/22 Range/Units 06:32 06:32 11:41 WBC 13.9 H (3.8-10.6) k/uL RBC 4.11 L (4.30-5.90) m/uL Hgb 12.7 L (13.0-17.5) gm/dL Neutrophils # 11.8 H (1.3-7.7) k/uL BUN 22 H (9-20) mg/dL Creatinine 0.60 L (0.66-1.25) mg/dL Glucose 120 H (74-99) mg/dL POC Glucose (mg/dL) 121 H (70-110) mg/dL
--- NOTE | 2022-10-08 13:18 | P.PN ---
Subjective Progress Note Date: 10/08/22 The patient seen at bedside and per the patient nurse is seems the patient had a PEG and trach yesterday. He is on a low dose of IV propofol and being weaned down. Currently on 10mcg/kg/min. Objective - Vital Signs Vital signs: Vital Signs Temp 98.5 F 10/08/22 12:00 Pulse 60 10/08/22 12:15 Resp 12 10/08/22 12:15 BP 164/73 10/08/22 12:15 Pulse Ox 95 10/08/22 12:15 FiO2 40 10/08/22 12:00 Intake & Output 10/07/22 10/08/22 10/08/22 18:59 06:59 18:59 Intake Total 2948.037 3614.166 504.825 Output Total 2725 2085 1400 Balance -1536.683 -711.834 -895.175 Weight 81.5 kg 80.6 kg 80.6 kg Intake: IV 900 900 450 Sodium Chloride 0.9% 1, 900 900 450 000 ml @ 75 mls/hr IV . [id number] [facility] Rx#:[id number] Intake, IV Titration 288.317 473.166 54.825 Amount Clevidipine Butyrate 25 78.667 185.066 mg In Empty Bag 1 bag @ 1 MG/HR 2 mls/hr IV .Q24H [facility] Rx#:[id number] propofoL 1,000 mg In 209.650 288.100 54.825 Empty Bag 1 bag @ 15 MCG/ KG/MIN 6.45 mls/hr IV . [id number] [facility] Rx#:[id number] Output: Urine 2720 2085 1400 Estimated Blood Loss 5 Other: Voiding Method Indwelling Catheter Indwelling Catheter Indwelling Catheter ABP, PAP, CO, CI - Last Documented Arterial Blood Pressure 188/176 - Exam Respiratory:Trach on vent. Neuro IV [id number]/kg/min. Is drowsy but is awakeable to voice. No following commands or attempting to verbalize. Pupils are round, equal and reactive to light. He is tracking throughout. No facial weakness. Motor: strength is limited in assessment but if lifting all extremities above gravity on own except the right upper seems 0/5. - Labs CBC & Chem 7: 10/08/22 06:32 10/08/22 06:32 Labs: Abnormal Lab Results - Last 24 Hours (Table) 10/07/22 10/07/22 10/08/22 Range/Units 17:41 23:28 06:00 WBC (3.8-10.6) k/uL RBC (4.30-5.90) m/uL Hgb (13.0-17.5) gm/dL Neutrophils # (1.3-7.7) k/uL BUN (9-20) mg/dL Creatinine (0.66-1.25) mg/dL Glucose (74-99) mg/dL POC Glucose (mg/dL) 122 H 113 H 115 H (70-110) mg/dL 10/08/22 10/08/22 10/08/22 Range/Units 06:32 06:32 11:41 WBC 13.9 H (3.8-10.6) k/uL RBC 4.11 L (4.30-5.90) m/uL Hgb 12.7 L (13.0-17.5) gm/dL Neutrophils # 11.8 H (1.3-7.7) k/uL BUN 22 H (9-20) mg/dL Creatinine 0.60 L (0.66-1.25) mg/dL Glucose 120 H (74-99) mg/dL POC Glucose (mg/dL) 121 H (70-110) mg/dL Assessment and Plan Assessment: * Patient found unresponsive, hypotensive, likely resulting in hypoxic ischemic encephalopathy * Acute ischemic stroke, left hemispheric region, mainly involving watershed territory between left MCA/ERCIKA, likely resulting from prolonged, profound h ypotension. Smaller area of acute ischemia also noticeable in the right frontal watershed region as well. Patient was not a TPA candidate because of last known well > 12 hours. 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 * Prolonged EEG for 2.5 hours because of a twitching which was performed on 10/04/2022 and reported as abnormal. No clinical or electrographic seizures were recorded. No epileptiform activity was present. The EEG consisted of diffuse delta theta slowing with frequencies ranging from 2-5 Hz. And he by relative periods of the electrical suppression. These findings are not epileptiform in nature. These findings indicate severe diffuse cerebral dysfunction and may in part be due to medication effect. No seizure were recorded. No epileptiform activity was present. * Repeat CT head on 10/03/22: Reported as no change in multifocal area of infarction when compared to previous as described above. No acute bleed or mass effect. * Repeat EEG 09/30/2022 was abnormal due to background slowing and intermittent suppression suggestive of generalized encephalopathy of moderate to severe degree. This can be seen with toxic metabolic causes, related to medication use. No epileptiform activity was seen in the entire study. When compared to the EEG from yesterday, the background seems to have slightly more slow and more suppressed. * Repeat CT head 09/29/2022 revealed evolution of the left frontal no parietal acute/subacute CVA. Small area of decreased attenuation right frontal lobe as well noticeable. I personally reviewed CT head, agree with the findings. * Carotid Doppler, revealed less than 50% stenosis of bilateral carotid bifurcation. Antegrade flow in both vertebral arteries.. * 2-D echo Revealed paced rhythm, preserved LV systolic function. EF is 50- 55%. Left atrial size is normal. No embolic source. * Fasting a.m. lipid panel cholesterol 94, LDL 27, HDL 28, triglycerides 191. LDL well controlled. * Hemoglobin A1c 6.0. * Aspirin 325 mg daily. * Other management as per critical care, IM and other specialties. * Condition is very guarded. The plan is discussed with his nurse. Otherwise, no additional neurological work-up. Will follow-up sporadically. Time with Patient: Less than 30
[2022-10-08] MEDS: SODIUM CHLORIDE 0.9% 1,000 ML IV SCH (14:59)
[2022-10-08 23:52] LABS: Glucose,Whole Blood 118 mg/dL (70-110)
[2022-10-09] MEDS: CLEVIDIPINE BUTYRATE 25 MG in EMPTY BAG 1 BAG IV SCH ×5 (00:04→09:02)
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
[2022-10-09] MEDS: HYDROmorphone 1 MG/ML 1 ML SYRINGE IVP PRN ×7 (01:22→23:29)
[2022-10-09] MEDS: INSULIN ASPART (NovoLOG) 100 UNIT/ML VIAL SQ SCH ×5 (01:49→23:35)
[2022-10-09] MEDS: IPRATROPIUM-ALBUTEROL 3 ML NEB INHALATION PRN (03:57)
--- NOTE | 2022-10-09 04:05 | XR ---
EXAMINATION TYPE: XR chest 1V portable DATE OF EXAM: 10/09/2022 3:59 AM COMPARISON: Chest radiographs from 10/07/2022 TECHNIQUE: XR chest 1V portable Portable AP radiograph of the chest. CLINICAL INDICATION:Male, 57 years old with history of Pneumonia; FINDINGS: Interval placement of tracheostomy cannula in appropriate position. Right PICC line is in stable posi tion with tip at the low SVC. There has been interval removal of NG tube. Visualized lungs are clear without evidence for focal consolidation. No pneumothorax or pleural effus ion. Cardiomediastinal silhouette is within normal limits. Chronic deformity of the left ribs. IMPRESSION: 1. Interval placement of tracheostomy tube in appropriate position. 2. Stable right PICC line. 3. Improvement in previously seen airspace disease.
[2022-10-09] MEDS ORDERED: CISATRACURIUM 2 MG/ML 5 ML VIAL IV ONE ×3 (04:17→09:00)
[2022-10-09 05:32] LABS: Glucose,Whole Blood 145 mg/dL (70-110)
[2022-10-09 05:54] LABS: Basophils % (A) 0 %; Eosinophils # (A) 0.2 k/uL (0-0.7); Eosinophils % (A) 1 %; HGB 13.3 gm/dL (13.0-17.5); Lymphocytes % (A) 5 %; MCH 31.7 pg (25.0-35.0); MCHC 33.2 g/dL (31.0-37.0); MCV 95.5 fL (80.0-100.0); Mean Platelet Volume 8.6; Monocytes # (A) 0.8 k/uL (0-1.0); Monocytes % (A) 4 %; Neutrophils # (A) 18.7 k/uL (1.3-7.7); Neutrophils % (A) 90 %; Platelet Count 248 k/uL (150-450); RBC 4.19 m/uL (4.30-5.90); RDW 13.6 % (11.5-15.5); WBC 20.9 k/uL (3.8-10.6)
[2022-10-09 06:11] LABS: African American GFR (CKD) >90 (>60 ml/min/1.73 sqM); Anion Gap 9 mmol/L; Blood Urea Nitrogen 22 mg/dL (9-20); Calcium 8.7 mg/dL (8.4-10.2); Carbon Dioxide 25 mmol/L (22-30); Chloride 104 mmol/L (98-107); Glucose 136 mg/dL (74-99); Magnesium 1.3 mg/dL (1.6-2.3); Non-African American GFR(CKD) >90 (>60 ml/min/1.73 sqM); Potassium 3.3 mmol/L (3.5-5.1); Sodium 138 mmol/L (137-145)
[2022-10-09] MEDS ORDERED: Magnesium Replacement Protocol 1 EACH MISC MISCELLANE PRN (06:42)
[2022-10-09] MEDS ORDERED: Potassium Replacement Protocol 1 EACH MISC MISCELLANE PRN (06:42)
[2022-10-09] MEDS: MAGNESIUM SULFATE-D5W PMX 1 GM in DEXTROSE/WATER 1 100ML.BAG IVPB SCH ×4 (06:54→09:54)
[2022-10-09] MEDS: POTASSIUM BICARBONATE/CIT AC 20 MEQ TABLET.EFF NG-TUBE SCH ×4 (06:55→23:00)
[2022-10-09] MEDS: SODIUM CHLORIDE 0.9% 1,000 ML IV SCH ×2 (07:00→19:51)
--- NOTE | 2022-10-09 07:04 | P.PN ---
Progress Note - Text Progress Note Date: 10/09/22 I was called last night around 4 AM the patient's appears to have a cuff leak. The respiratory therapist overnight had brought back the tracheostomy tube approximate 2 cm. There was no significant air leak after this was performed. The cuff is not leaking. The patient is currently on event on sedation. His O2 sat is 97%. Tracheostomy site is clean. PEG site is clean. Patient will K receive supportive care. We'll watch his tracheostomy site closely.
[2022-10-09] MEDS: IPRATROPIUM-ALBUTEROL 3 ML NEB INHALATION SCH ×4 (08:12→19:54)
--- NOTE | 2022-10-09 08:58 | P.PN ---
Subjective Progress Note Date: 10/09/22 Principal diagnosis: Hypertension emergency This is a 58-year-old gentleman who was admitted to the hospital with a change in mental status with possible CVA as well as a seizure. Currently he is intubated and he is on mechanical ventilation. We consulted to see the patient for hypertension management. The patient remains intubated. PEG is in process to be done and he potentially might have anoxic encephalopathy. The pressure remains elevated in spite of the current medical regimen. He continues to be in sinus mechanism and sinus tachycardia. I am going to go up with the dose of losartan and we might need to consider adding beta enoch to the current medical regimen. Continue IV calcium channel enoch. Continue hydralazine when necessary. October 062022 The patient was seen this morning. He continues to be intubated on mechanical ventilation. The pressure remains elevated. I'm going to replace atenolol with carvedilol and add hydrochlorothiazide to the current medical regimen. We will continue monitor the pressure and adjust medications to control the pressure if we need to. October 072022 The patient was seen and evaluated this morning. He continues to be on mechanical ventilation. The pressure appears to be under reasonable control on the current medical regimen. October 082022 The patient was seen and evaluated this morning. He continues to be on mechanical ventilation and currently he does have tracheostomy tube. The pressure remains elevated but they hold the blood pressure medications yesterday. We are going to start him back on his current medical regimen for hypertension. Otherwise from the cardiovascular standpoint of view, continue the current medical regimen. October 092022 The patient was seen this morning. Unfortunately the pressure went up last night about 200 mmHg systolic and he was restarted back on calcium channel enoch intravenous. The pressure seems to be under better control. Otherwise he continues to be on ventilator with a tracheostomy tube was placed 48 hours. We will continue the current medical regimen and continue adjusting the medication to get the pressure under control. Assessment Change in mental status Possible CVA Possible seizure disorder Hypertension emergency Plan Continue the current medical regimen Follow-up with the patient Objective - Vital Signs Vital signs: Vital Signs Temp 98.4 F 10/09/22 08:00 Pulse 70 10/09/22 08:25 Resp 19 10/09/22 08:00 BP 154/74 10/09/22 08:00 Pulse Ox 99 10/09/22 08:00 FiO2 40 10/09/22 08:08 Intake & Output 10/08/22 10/09/22 10/09/22 18:59 06:59 18:59 Intake Total 3649.356 5460.806 160 Output Total 2825 2335 325 Balance -1675.175 -1243.194 -165 Weight 80.6 kg 75.1 kg Intake: IV 975 825 150 Sodium Chloride 0.9% 1, 975 825 150 000 ml @ 75 mls/hr IV . [id number] [facility] Rx#:[id number] Intake, IV Titration 104.825 226.806 Amount Clevidipine Butyrate 25 50 216.667 mg In Empty Bag 1 bag @ 1 MG/HR 2 mls/hr IV .Q24H [facility] Rx#:[id number] propofoL 1,000 mg In 54.825 Empty Bag 1 bag @ 15 MCG/ KG/MIN 6.45 mls/hr IV . [id number] [facility] Rx#:[id number] propofoL 1,000 mg In 10.139 Empty Bag 1 bag @ 15 MCG/ KG/MIN 6.759 mls/hr IV . [id number] [facility] Rx#:[id number] Tube Feeding 40 40 10 Other 30 Output: Urine 2825 2335 325 Other: Voiding Method Indwelling Catheter Indwelling Catheter # Bowel Movements 0 ABP, PAP, CO, CI - Last Documented Arterial Blood Pressure 188/176 - Labs CBC & Chem 7: 10/09/22 05:45 10/09/22 05:45 Labs: Abnormal Lab Results - Last 24 Hours (Table) 10/08/22 10/08/22 10/09/22 Range/Units 11:41 23:50 05:31 WBC (3.8-10.6) k/uL RBC (4.30-5.90) m/uL Neutrophils # (1.3-7.7) k/uL Potassium (3.5-5.1) mmol/L BUN (9-20) mg/dL Creatinine (0.66-1.25) mg/dL Glucose (74-99) mg/dL POC Glucose (mg/dL) 121 H 118 H 145 H (70-110) mg/dL Magnesium (1.6-2.3) mg/dL 10/09/22 10/09/22 Range/Units 05:45 05:45 WBC 20.9 H (3.8-10.6) k/uL RBC 4.19 L (4.30-5.90) m/uL Neutrophils # 18.7 H (1.3-7.7) k/uL Potassium 3.3 L (3.5-5.1) mmol/L BUN 22 H (9-20) mg/dL Creatinine 0.56 L (0.66-1.25) mg/dL Glucose 136 H (74-99) mg/dL POC Glucose (mg/dL) (70-110) mg/dL Magnesium 1.3 L (1.6-2.3) mg/dL
[2022-10-09] MEDS: CHLORHEXIDINE GLUCONATE 15 ML CUP MUCOUS MEM SCH ×2 (09:03→21:33)
[2022-10-09] MEDS: levETIRAcetam IV 500 MG/5 ML VIAL IVP SCH ×2 (09:03→21:33)
[2022-10-09] MEDS: PANTOPRAZOLE 40 MG/10 ML VIAL IV SCH (09:03)
[2022-10-09] MEDS: HEPARIN SODIUM,PORCINE/PF 5,000 UNIT/0.5 ML SYRINGE SQ SCH ×2 (09:03→21:33)
[2022-10-09] MEDS: ASPIRIN 325 MG TAB PO SCH (09:03)
[2022-10-09] MEDS: carvediloL 6.25 MG TAB PO SCH ×2 (09:04→17:14)
[2022-10-09] MEDS: allopurinoL 100 MG TAB PO SCH ×2 (09:04→21:33)
[2022-10-09] MEDS: LOSARTAN 50 MG TAB PO SCH ×2 (09:04→21:33)
[2022-10-09] MEDS: hydroCHLOROthiazide 25 MG TAB PO SCH (09:04)
[2022-10-09] MEDS: QUEtiapine 25 MG TAB PO SCH ×3 (09:04→21:33)
[2022-10-09] MEDS: NICOTINE 14MG/24HR PATCH TRANSDERM SCH (09:04)
[2022-10-09] MEDS: SENNOSIDES 8.6 MG TAB PO SCH ×2 (09:04→21:33)
--- NOTE | 2022-10-09 10:59 | PCN ---
PROCEDURE NOTE PROCEDURE: Bronchoscopy, airway examination, repositioning of the tracheostomy tube. PREOPERATIVE DIAGNOSIS: Tracheostomy tube obstruction. POSTOPERATIVE DIAGNOSIS: Tracheostomy tube obstruction. OPERATORS: 1. Dr. Jones. 2. Dr. Broussard. DESCRIPTION OF PROCEDURE: There was informed consent and universal timeout. The patient's procedure took place in room 266. The patient was sedated with propofol and paralyzed with Nimbex 10 mg. The patient was on the ventilator, at 100% during the procedure. The bronchoscope was inserted through the bronchoscope adapter connected to the tracheostomy tube. We repositioned the tracheostomy tube so that the opening of the tracheostomy tube was regularly in the center of the lumen trachea. We were able to determine the proper positioning of the tracheostomy tube. At that point, secretions in the lower airways were suctioned. There was no mass or tumor. The patient tolerated the procedure well and the bronchoscope was withdrawn. MMODL / IJN: [id number] /
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
[2022-10-09 11:42] LABS: Glucose,Whole Blood 164 mg/dL (70-110)
--- NOTE | 2022-10-09 12:56 | P.PN ---
Subjective Progress Note Date: 10/09/22 The patient seen at bedside and per the patient nurse patient was having respirator distress overnight as a result his IV propofol was increased and was on IV Propofol 70mcg/kg/min and currently on 65mcg/kg/min. Objective - Vital Signs Vital signs: Vital Signs Temp 98.2 F 10/09/22 12:00 Pulse 58 L 10/09/22 12:00 Resp 17 10/09/22 12:00 BP 112/60 10/09/22 12:00 Pulse Ox 99 10/09/22 12:00 FiO2 40 10/09/22 12:00 Intake & Output 10/08/22 10/09/22 10/09/22 18:59 06:59 18:59 Intake Total 8332.792 6228.806 1351.540 Output Total 2825 2335 725 Balance -1675.175 -1243.194 626.540 Weight 80.6 kg 75.1 kg Intake: IV 975 825 990 Invasive Line 1 20 Invasive Line 3 120 Magnesium Sulfate-D5w Pmx 400 1 gm In Dextrose/Water 1 100ml.bag @ 100 mls/hr IVPB Q1H [facility] Rx#: [id number] Sodium Chloride 0.9% 1, 975 825 450 000 ml @ 75 mls/hr IV . [id number] [facility] Rx#:[id number] Intake, IV Titration 104.825 226.806 265.540 Amount Clevidipine Butyrate 25 50 216.667 69.300 mg In Empty Bag 1 bag @ 1 MG/HR 2 mls/hr IV .Q24H [facility] Rx#:[id number] propofoL 1,000 mg In 54.825 Empty Bag 1 bag @ 15 MCG/ KG/MIN 6.45 mls/hr IV . [id number] [facility] Rx#:[id number] propofoL 1,000 mg In 10.139 196.240 Empty Bag 1 bag @ 15 MCG/ KG/MIN 6.759 mls/hr IV . [id number] [facility] Rx#:[id number] Tube Feeding 40 40 56 Other 30 40 Output: Urine 2825 2335 725 Other: Voiding Method Indwelling Catheter Indwelling Catheter Indwelling Catheter # Bowel Movements 0 ABP, PAP, CO, CI - Last Documented Arterial Blood Pressure 188/176 - Exam Respiratory:Trach on vent. Neuro Limited because of sedation and condtion. IV Propofol 65mcg/kg/min. Comatose. Pupils are pinpoint bilaterally. Primary gaze is midline. No facial weakness. Is breathing over the vent. - Labs CBC & Chem 7: 10/09/22 05:45 10/09/22 05:45 Labs: Abnormal Lab Results - Last 24 Hours (Table) 10/08/22 10/09/22 10/09/22 Range/Units 23:50 05:31 05:45 WBC 20.9 H (3.8-10.6) k/uL RBC 4.19 L (4.30-5.90) m/uL Neutrophils # 18.7 H (1.3-7.7) k/uL Potassium (3.5-5.1) mmol/L BUN (9-20) mg/dL Creatinine (0.66-1.25) mg/dL Glucose (74-99) mg/dL POC Glucose (mg/dL) 118 H 145 H (70-110) mg/dL Magnesium (1.6-2.3) mg/dL 10/09/22 10/09/22 Range/Units 05:45 11:41 WBC (3.8-10.6) k/uL RBC (4.30-5.90) m/uL Neutrophils # (1.3-7.7) k/uL Potassium 3.3 L (3.5-5.1) mmol/L BUN 22 H (9-20) mg/dL Creatinine 0.56 L (0.66-1.25) mg/dL Glucose 136 H (74-99) mg/dL POC Glucose (mg/dL) 164 H (70-110) mg/dL Magnesium 1.3 L (1.6-2.3) mg/dL Assessment and Plan Assessment: * Patient found unresponsive, hypotensive, 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 Smaller area of acute ischemia also noticeable in the right frontal watershed region as well. Patient was not a TPA candidate because of last known well > 12 hours. On examination has right upper extremity plegia. 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 * Prolonged EEG for 2.5 hours because of a twitching which was performed on 10/04/2022 and reported as abnormal. No clinical or electrographic seizures were recorded. No epileptiform activity was present. The EEG consisted of diffuse delta theta slowing with frequencies ranging from 2-5 Hz. And he by relative periods of the electrical suppression. These findings are not epileptiform in nature. These findings indicate severe diffuse cerebr al dysfunction and may in part be due to medication effect. No seizure were recorded. No epileptiform activity was present. * Repeat CT head on 10/03/22: Reported as no change in multifocal area of infarction when compared to previous as described above. No acute bleed or mass effect. * Repeat EEG 09/30/2022 was abnormal due to background slowing and intermittent suppression suggestive of generalized encephalopathy of moderate to severe degree. This can be seen with toxic metabolic causes, related to medication use. No epileptiform activity was seen in the entire study. When compared to the EEG from yesterday, the background seems to have slightly more slow and m ore suppressed. * Repeat CT head 09/29/2022 revealed evolution of the left frontal no parietal acute/subacute CVA. Small area of decreased attenuation right frontal lobe as well noticeable. I personally reviewed CT head, agree with the findings. * Carotid Doppler, revealed less than 50% stenosis of bilateral carotid bifurcation. Antegrade flow in both vertebral arteries.. * 2-D echo Revealed paced rhythm, preserved LV systolic function. EF is 50- 55%. Left atrial size is normal. No embolic source. * Fasting a.m. lipid panel cholesterol 94, LDL 27, HDL 28, triglycerides 191. LDL well controlled. * Hemoglobin A1c 6.0. * Aspirin 325 mg daily. * Please avoid sedation as much as possible for good neurological examination. While off sedation, he is awake, has right upper extremity plegia but otherwise moving all extremities spontaneously. * Other management as per critical care, IM and other specialties. * Condition is very guarded. The plan is discussed with his nurse. Will follow-up sporadically. Dr. Trammell will start neurology service on 10/11/2022 A.M. Time with Patient: Less than 30
[2022-10-09 18:15] LABS: Glucose,Whole Blood 120 mg/dL (70-110)
[2022-10-09 23:36] LABS: Glucose,Whole Blood 137 mg/dL (70-110)
[2022-10-10] MEDS: HYDROmorphone 1 MG/ML 1 ML SYRINGE IVP PRN ×8 (04:12→21:49)
[2022-10-10 05:35] LABS: Glucose,Whole Blood 149 mg/dL (70-110)
[2022-10-10] MEDS: INSULIN ASPART (NovoLOG) 100 UNIT/ML VIAL SQ SCH ×3 (05:56→18:30)
[2022-10-10 06:16] LABS: Basophils % (A) 0 %; Eosinophils # (A) 0.4 k/uL (0-0.7); Eosinophils % (A) 3 %; HCT 33.3 % (39.0-53.0); HGB 11.2 gm/dL (13.0-17.5); Lymphocytes # (A) 1.1 k/uL (1.0-4.8); Lymphocytes % (A) 8 %; MCH 32.6 pg (25.0-35.0); MCHC 33.7 g/dL (31.0-37.0); MCV 96.9 fL (80.0-100.0); Monocytes # (A) 0.6 k/uL (0-1.0); Monocytes % (A) 5 %; Neutrophils # (A) 11.3 k/uL (1.3-7.7); Neutrophils % (A) 84 %; Platelet Count 181 k/uL (150-450); RBC 3.44 m/uL (4.30-5.90); RDW 13.2 % (11.5-15.5); WBC 13.5 k/uL (3.8-10.6)
[2022-10-10 06:25] LABS: African American GFR (CKD) >90 (>60 ml/min/1.73 sqM); Anion Gap 6 mmol/L; Blood Urea Nitrogen 20 mg/dL (9-20); Calcium 8.1 mg/dL (8.4-10.2); Carbon Dioxide 27 mmol/L (22-30); Chloride 102 mmol/L (98-107); Glucose 134 mg/dL (74-99); Magnesium 1.5 mg/dL (1.6-2.3); Non-African American GFR(CKD) >90 (>60 ml/min/1.73 sqM); Potassium 3.4 mmol/L (3.5-5.1); Sodium 135 mmol/L (137-145)
[2022-10-10] MEDS: carvediloL 6.25 MG TAB PO SCH ×2 (06:39→16:55)
[2022-10-10] MEDS: MAGNESIUM SULFATE-D5W PMX 1 GM in DEXTROSE/WATER 1 100ML.BAG IVPB SCH ×2 (06:45→08:16)
[2022-10-10] MEDS: POTASSIUM BICARBONATE/CIT AC 20 MEQ TABLET.EFF NG-TUBE SCH ×2 (06:45→08:18)
--- NOTE | 2022-10-10 07:14 | XR ---
EXAMINATION TYPE: XR chest 1V DATE OF EXAM: 10/10/2022 6:50 AM COMPARISON: Chest radiographs from 10/09/2022 TECHNIQUE: XR chest 1V Frontal view of the chest. CLINICAL INDICATION:Male, 57 years old with history of Mechanical ventilation; FINDINGS: Tracheostomy cannula is redemonstrated. Right PICC line is in stable position with tip at the low SVC . Visualized lungs are clear without evidence for focal consolidation. No pneumothorax or pleural effus ion. Cardiomediastinal silhouette is within normal limits. Chronic deformity of the left ribs. IMPRESSION: Overall no significant change from prior examination with redemonstration of right-sided PICC line in tracheostomy cannula.
[2022-10-10] MEDS: IPRATROPIUM-ALBUTEROL 3 ML NEB INHALATION SCH ×4 (07:31→20:07)
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
[2022-10-10] MEDS: NICOTINE 14MG/24HR PATCH TRANSDERM SCH (08:17)
[2022-10-10] MEDS: PANTOPRAZOLE 40 MG/10 ML VIAL IV SCH (08:17)
[2022-10-10] MEDS: HEPARIN SODIUM,PORCINE/PF 5,000 UNIT/0.5 ML SYRINGE SQ SCH ×2 (08:17→19:55)
[2022-10-10] MEDS: levETIRAcetam IV 500 MG/5 ML VIAL IVP SCH ×2 (08:17→19:54)
[2022-10-10] MEDS: CHLORHEXIDINE GLUCONATE 15 ML CUP MUCOUS MEM SCH ×2 (08:17→19:55)
[2022-10-10] MEDS: ASPIRIN 325 MG TAB PO SCH (08:18)
[2022-10-10] MEDS: SENNOSIDES 8.6 MG TAB PO SCH ×2 (08:18→19:54)
[2022-10-10] MEDS: allopurinoL 100 MG TAB PO SCH ×2 (08:18→19:54)
[2022-10-10] MEDS: LOSARTAN 50 MG TAB PO SCH ×2 (08:18→19:54)
[2022-10-10] MEDS: hydroCHLOROthiazide 25 MG TAB PO SCH (08:18)
[2022-10-10] MEDS: QUEtiapine 25 MG TAB PO SCH (08:18)
--- NOTE | 2022-10-10 08:59 | P.PN ---
Subjective Progress Note Date: 10/10/22 Principal diagnosis: Hypertension emergency This is a 58-year-old gentleman who was admitted to the hospital with a change in mental status with possible CVA as well as a seizure. Currently he is intubated and he is on mechanical ventilation. We consulted to see the patient for hypertension management. The patient remains intubated. PEG is in process to be done and he potentially might have anoxic encephalopathy. The pressure remains elevated in spite of the current medical regimen. He continues to be in sinus mechanism and sinus tachycardia. I am going to go up with the dose of losartan and we might need to consider adding beta enoch to the current medical regimen. Continue IV calcium channel enoch. Continue hydralazine when necessary. October 062022 The patient was seen this morning. He continues to be intubated on mechanical ventilation. The pressure remains elevated. I'm going to replace atenolol with carvedilol and add hydrochlorothiazide to the current medical regimen. We will continue monitor the pressure and adjust medications to control the pressure if we need to. October 072022 The patient was seen and evaluated this morning. He continues to be on mechanical ventilation. The pressure appears to be under reasonable control on the current medical regimen. October 082022 The patient was seen and evaluated this morning. He continues to be on mechanical ventilation and currently he does have tracheostomy tube. The pressure remains elevated but they hold the blood pressure medications yesterday. We are going to start him back on his current medical regimen for hypertension. Otherwise from the cardiovascular standpoint of view, continue the current medical regimen. October 092022 The patient was seen this morning. Unfortunately the pressure went up last night about 200 mmHg systolic and he was restarted back on calcium channel enoch intravenous. The pressure seems to be under better control. Otherwise he continues to be on ventilator with a tracheostomy tube was placed 48 hours. We will continue the current medical regimen and continue adjusting the medication to get the pressure under control. 10/10/2022 The patient was seen this morning. He seems to be stable at this point. The pressure has been improved significantly and currently he is only on oral medication consistent of carvedilol as well as losartan and hydrochlorothiazide. Tracheostomy tube continues to be in place. Beside that he does have a bradycardia but his heart rate above 50 and he is asymptomatic from that standpoint overview. From a cardiovascular standpoint, we will continue the current medical regimen. Assessment Change in mental status Possible CVA Possible seizure disorder Hypertension emergency which has improved Bradycardia which has improved Plan Continue the current medical regimen Continue the current doses of carvedilol and losartan and hydrochlorothiazide Follow-up with the patient Objective - Vital Signs Vital signs: Vital Signs Temp 98.1 F 10/10/22 08:00 Pulse 61 10/10/22 08:00 Resp 23 10/10/22 08:00 BP 150/63 10/10/22 08:00 Pulse Ox 96 10/10/22 08:00 FiO2 40 10/10/22 08:00 Intake & Output 10/09/22 10/10/22 10/10/22 18:59 06:59 18:59 Intake Total 2054.604 1101.672 190 Output Total 1300 1475 185 Balance 754.604 -373.328 5 Weight 76 kg Intake: IV 1430 1020 190 Invasive Line 1 30 30 10 Invasive Line 10 20 60 20 Invasive Line 3 80 30 10 Magnesium Sulfate-D5w Pmx 400 1 gm In Dextrose/Water 1 100ml.bag @ 100 mls/hr IVPB Q1H [facility] Rx#: [id number] Sodium Chloride 0.9% 1, 900 900 150 000 ml @ 75 mls/hr IV . [id number] [facility] Rx#:[id number] Intake, IV Titration 360.604 81.672 Amount Clevidipine Butyrate 25 70.300 mg In Empty Bag 1 bag @ 1 MG/HR 2 mls/hr IV .Q24H [facility] Rx#:[id number] propofoL 1,000 mg In 290.304 81.672 Empty Bag 1 bag @ 15 MCG/ KG/MIN 6.759 mls/hr IV . [id number] [facility] Rx#:[id number] Tube Feeding 194 Other 70 Output: Urine 1300 1475 185 Other: Voiding Method Indwelling Catheter Indwelling Catheter # Bowel Movements 0 0 ABP, PAP, CO, CI - Last Documented Arterial Blood Pressure 188/176 - Labs CBC & Chem 7: 10/10/22 05:37 10/10/22 05:37 Labs: Abnormal Lab Results - Last 24 Hours (Table) 10/09/22 10/09/22 10/09/22 Range/Units 11:41 14:58 14:58 WBC (3.8-10.6) k/uL RBC (4.30-5.90) m/uL Hgb (13.0-17.5) gm/dL Hct (39.0-53.0) % Neutrophils # (1.3-7.7) k/uL Sodium (137-145) mmol/L Potassium 3.4 L (3.5-5.1) mmol/L Creatinine (0.66-1.25) mg/dL Glucose (74-99) mg/dL POC Glucose (mg/dL) 164 H (70-110) mg/dL Calcium (8.4-10.2) mg/dL Magnesium (1.6-2.3) mg/dL Procalcitonin 0.54 H (0.02-0.09) ng/mL 10/09/22 10/09/22 10/10/22 Range/Units 18:13 23:35 05:34 WBC (3.8-10.6) k/uL RBC (4.30-5.90) m/uL Hgb (13.0-17.5) gm/dL Hct (39.0-53.0) % Neutrophils # (1.3-7.7) k/uL Sodium (137-145) mmol/L Potassium (3.5-5.1) mmol/L Creatinine (0.66-1.25) mg/dL Glucose (74-99) mg/dL POC Glucose (mg/dL) 120 H 137 H 149 H (70-110) mg/dL Calcium (8.4-10.2) mg/dL Magnesium (1.6-2.3) mg/dL Procalcitonin (0.02-0.09) ng/mL 10/10/22 10/10/22 Range/Units 05:37 05:37 WBC 13.5 H (3.8-10.6) k/uL RBC 3.44 L (4.30-5.90) m/uL Hgb 11.2 L (13.0-17.5) gm/dL Hct 33.3 L (39.0-53.0) % Neutrophils # 11.3 H (1.3-7.7) k/uL Sodium 135 L (137-145) mmol/L Potassium 3.4 L (3.5-5.1) mmol/L Creatinine 0.47 L (0.66-1.25) mg/dL Glucose 134 H (74-99) mg/dL POC Glucose (mg/dL) (70-110) mg/dL Calcium 8.1 L (8.4-10.2) mg/dL Magnesium 1.5 L (1.6-2.3) mg/dL Procalcitonin (0.02-0.09) ng/mL
[2022-10-10] MEDS ORDERED: QUEtiapine 25 MG TAB PO ONE (09:15)
--- NOTE | 2022-10-10 09:48 | P.PN ---
Progress Note - Text Progress Note Date: 10/10/22 Patient [place] stable. His tracheostomy site is clean. There is no evidence of any air leak. PEG tube site is clean Patient continued supportive care and tube feedings.
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
[2022-10-10 11:44] LABS: Glucose,Whole Blood 166 mg/dL (70-110)
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
[2022-10-10] MEDS: QUEtiapine 50 MG TAB PO SCH ×2 (16:55→21:49)
[2022-10-10 18:29] LABS: Glucose,Whole Blood 142 mg/dL (70-110)
[2022-10-10] MEDS: SODIUM CHLORIDE 0.9% 1,000 ML IV SCH (18:30)
[2022-10-10 23:47] LABS: Glucose,Whole Blood 152 mg/dL (70-110)
[2022-10-11] MEDS: INSULIN ASPART (NovoLOG) 100 UNIT/ML VIAL SQ SCH ×4 (00:53→18:19)
[2022-10-11] MEDS: HYDROmorphone 1 MG/ML 1 ML SYRINGE IVP PRN ×8 (00:54→18:19)
[2022-10-11 04:13] LABS: HCT 32.4 % (39.0-53.0); HGB 10.6 gm/dL (13.0-17.5); MCH 31.7 pg (25.0-35.0); MCHC 32.7 g/dL (31.0-37.0); MCV 96.9 fL (80.0-100.0); Mean Platelet Volume 9.2; Platelet Count 217 k/uL (150-450); RBC 3.34 m/uL (4.30-5.90); RDW 13.1 % (11.5-15.5); WBC 11.3 k/uL (3.8-10.6)
[2022-10-11 04:58] LABS: African American GFR (CKD) >90 (>60 ml/min/1.73 sqM); Anion Gap 5 mmol/L; Blood Urea Nitrogen 19 mg/dL (9-20); Calcium 8.5 mg/dL (8.4-10.2); Carbon Dioxide 30 mmol/L (22-30); Chloride 101 mmol/L (98-107); Glucose 150 mg/dL (74-99); Magnesium 1.3 mg/dL (1.6-2.3); Non-African American GFR(CKD) >90 (>60 ml/min/1.73 sqM); Potassium 3.7 mmol/L (3.5-5.1); Sodium 136 mmol/L (137-145)
[2022-10-11] MEDS: POTASSIUM CHLORIDE 20 MEQ in WATER FOR INJECTION 1 100ML.BAG IVPB SCH ×2 (06:33→08:07)
[2022-10-11] MEDS: MAGNESIUM SULFATE-D5W PMX 1 GM in DEXTROSE/WATER 1 100ML.BAG IVPB SCH ×4 (06:37→12:35)
[2022-10-11] MEDS: IPRATROPIUM-ALBUTEROL 3 ML NEB INHALATION SCH ×3 (07:41→16:34)
--- NOTE | 2022-10-11 07:46 | P.PN ---
Subjective Progress Note Date: 10/11/22 PROGRESS NOTE The patient is a 57-year-old male who presented with respiratory failure, bradycardia, requiring mechanical ventilation. He is status post tracheostomy and PEG tube placement. He opens up his eyes but does not follow command. He is in sinus mechanism. He has evidence of left frontal and parietal CVA with severe anoxic encephalopathy. He has a prior history of traumatic brain injury, diabetes and a prior history of alcoholism. He has bradycardia on presentation the subsequently resolved. His blood pressure has been elevated and he has been on oral treatment. The plan is to transfer the patient to [facility] acute care facility or specialized fci. His left ventricle systolic function was preserved on presentation Medications: Carvedilol 6.25 mg twice a day, aspirin once a day, clonidine patch #2, hydrochlorothiazide 25 mg daily, losartan 50 mg twice a day PHYSICAL EXAMINATION: Blood pressure 114/60 heart rate 60, tracheostomy in place, opening his eyes but not following commands LUNGS: Clear to auscultation HEART: Regular rate and rhythm, S1, S2. No S3. systolic ejection murmur ABDOMEN: Soft, nontender, no organomegaly, PEG tube in place EXTREMETIES: No edema LAB: Potassium 3.7, BUN 19, creatinine 0.48 him a hemoglobin 10.6 IMPRESSION: 1. Respiratory failure with tracheostomy 2. Status post CVA 3. Anoxic encephalopathy 4. Hypertension PLAN: 1. Continue present antihypertensive regimen 2. Awaiting intermediate manager placement 3. We will see him on as-needed basis 4. Please feel free to call us for any question Objective - Vital Signs Vital signs: Vital Signs Temp 98.8 F 10/11/22 04:00 Pulse 57 L 10/11/22 07:00 Resp 60 H 10/11/22 07:00 BP 114/61 10/11/22 07:00 Pulse Ox 98 10/11/22 07:00 FiO2 40 10/11/22 07:28 Intake & Output 10/10/22 10/11/22 10/11/22 18:59 06:59 18:59 Intake Total 1319 1287 Output Total 1185 1645 Balance 134 -358 Weight 58.3 kg Intake: IV 1020 1020 Invasive Line 1 30 30 Invasive Line 10 60 60 Invasive Line 3 30 30 Sodium Chloride 0.9% 1, 900 900 000 ml @ 75 mls/hr IV . [id number] [facility] Rx#:[id number] Tube Feeding 299 207 Other 60 Output: Urine 1185 1645 Other: Voiding Method Indwelling Catheter Indwelling Catheter # Bowel Movements 0 ABP, PAP, CO, CI - Last Documented Arterial Blood Pressure 188/176 - Labs CBC & Chem 7: 10/11/22 03:36 10/11/22 03:36 Labs: Abnormal Lab Results - Last 24 Hours (Table) 10/10/22 10/10/22 10/10/22 Range/Units 11:42 18:27 23:45 WBC (3.8-10.6) k/uL RBC (4.30-5.90) m/uL Hgb (13.0-17.5) gm/dL Hct (39.0-53.0) % Sodium (137-145) mmol/L Creatinine (0.66-1.25) mg/dL Glucose (74-99) mg/dL POC Glucose (mg/dL) 166 H 142 H 152 H (70-110) mg/dL Magnesium (1.6-2.3) mg/dL 10/11/22 10/11/22 Range/Units 03:36 03:36 WBC 11.3 H (3.8-10.6) k/uL RBC 3.34 L (4.30-5.90) m/uL Hgb 10.6 L (13.0-17.5) gm/dL Hct 32.4 L (39.0-53.0) % Sodium 136 L (137-145) mmol/L Creatinine 0.48 L (0.66-1.25) mg/dL Glucose 150 H (74-99) mg/dL POC Glucose (mg/dL) (70-110) mg/dL Magnesium 1.3 L (1.6-2.3) mg/dL
[2022-10-11] MEDS: carvediloL 6.25 MG TAB PO SCH ×2 (08:06→16:29)
[2022-10-11] MEDS: SODIUM CHLORIDE 0.9% 1,000 ML IV SCH (08:07)
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
[2022-10-11] MEDS: CHLORHEXIDINE GLUCONATE 15 ML CUP MUCOUS MEM SCH (10:15)
[2022-10-11] MEDS: PANTOPRAZOLE 40 MG/10 ML VIAL IV SCH (10:15)
[2022-10-11] MEDS: levETIRAcetam IV 500 MG/5 ML VIAL IVP SCH (10:17)
[2022-10-11] MEDS: HEPARIN SODIUM,PORCINE/PF 5,000 UNIT/0.5 ML SYRINGE SQ SCH (10:21)
[2022-10-11] MEDS: ASPIRIN 325 MG TAB PO SCH (10:21)
[2022-10-11] MEDS: allopurinoL 100 MG TAB PO SCH (10:21)
[2022-10-11] MEDS: SENNOSIDES 8.6 MG TAB PO SCH (10:21)
[2022-10-11] MEDS: LOSARTAN 50 MG TAB PO SCH (10:21)
[2022-10-11] MEDS: NICOTINE 14MG/24HR PATCH TRANSDERM SCH (10:21)
[2022-10-11] MEDS: QUEtiapine 50 MG TAB PO SCH ×2 (10:27→16:29)
[2022-10-11] MEDS: hydroCHLOROthiazide 25 MG TAB PO SCH (10:27)
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
[2022-10-11 12:32] LABS: Glucose,Whole Blood 177 mg/dL (70-110)
--- NOTE | 2022-10-11 13:04 | P.PN ---
Subjective Progress Note Date: 10/11/22 CHIEF COMPLAINT: Ischemic CVA HISTORY OF PRESENT ILLNESS: Patient status post tracheostomy and PEG tube p lacement. Tube feedings are at 23 mL per hour. Patient tolerating tube feeds. No air leak at tracheostomy site. Afebrile WBC is 13.9 Hgb 12.7. [facility] PHYSICAL EXAM: VITAL SIGNS: Reviewed. GENERAL: Well-developed in no acute distress. HEENT: Tracheostomy site clean dry and intact ABDOMEN: Soft. Nondistended. PEG tube site clean dry and intact ASSESSMENT: 1. Respiratory failure and protein calorie malnutrition status post tracheostomy and PEG tube placement 2. Ischemic stroke PLAN: -Dietitian to titrate PEG tube feedings -Continue ICU management -Continue supportive care Physician C D Reactor Operator note has been reviewed by physician. Signing provider agrees with the documented findings, assessment, and plan of care. Objective - Vital Signs Vital signs: Vital Signs Temp 97.3 F L 10/11/22 07:30 Pulse 63 10/11/22 10:00 Resp 21 10/11/22 10:00 BP 160/71 10/11/22 10:00 Pulse Ox 99 10/11/22 09:30 FiO2 40 10/11/22 07:30 Intake & Output 10/10/22 10/11/22 10/11/22 18:59 06:59 18:59 Intake Total 1319 1287 614 Output Total 1185 1645 455 Balance 134 -358 159 Weight 58.3 kg Intake: IV 1020 1020 515 Invasive Line 1 30 30 Invasive Line 10 60 60 Invasive Line 3 30 30 Magnesium Sulfate-D5w Pmx 200 1 gm In Dextrose/Water 1 100ml.bag @ 100 mls/hr IVPB Q1H [facility] Rx#: [id number] Potassium Chloride 20 meq 100 In Water For Injection 1 100ml.bag @ 100 mls/hr IVPB Q1H [facility] Rx#: [id number] Sodium Chloride 0.9% 1, 900 900 215 000 ml @ 75 mls/hr IV . [id number] [facility] Rx#:[id number] Tube Feeding 299 207 69 Other 60 30 Output: Urine 1185 1645 455 Other: Voiding Method Indwelling Catheter Indwelling Catheter # Bowel Movements 0 ABP, PAP, CO, CI - Last Documented Arterial Blood Pressure 188/176 - Labs CBC & Chem 7: 10/11/22 03:36 10/11/22 03:36 Labs: Abnormal Lab Results - Last 24 Hours (Table) 10/10/22 10/10/22 10/10/22 Range/Units 11:42 18:27 23:45 WBC (3.8-10.6) k/uL RBC (4.30-5.90) m/uL Hgb (13.0-17.5) gm/dL Hct (39.0-53.0) % Sodium (137-145) mmol/L Creatinine (0.66-1.25) mg/dL Glucose (74-99) mg/dL POC Glucose (mg/dL) 166 H 142 H 152 H (70-110) mg/dL Magnesium (1.6-2.3) mg/dL 10/11/22 10/11/22 Range/Units 03:36 03:36 WBC 11.3 H (3.8-10.6) k/uL RBC 3.34 L (4.30-5.90) m/uL Hgb 10.6 L (13.0-17.5) gm/dL Hct 32.4 L (39.0-53.0) % Sodium 136 L (137-145) mmol/L Creatinine 0.48 L (0.66-1.25) mg/dL Glucose 150 H (74-99) mg/dL POC Glucose (mg/dL) (70-110) mg/dL Magnesium 1.3 L (1.6-2.3) mg/dL
[2022-10-11 13:39] VITALS: BMI 18.9
[2022-10-11 14:10] VITALS: RESP 16
[2022-10-11 14:35] LABS: ABG Base Excess 6.5 mmol/L; ABG HCO3 31 mmol/L (21-25); ABG Oxygen Saturation 98.4 % (94-97); ABG PCO2 44 mmHg (35-45); ABG PH 7.45 (7.35-7.45); ABG PO2 120 mmHg (83-108); ABG TCO2 32 mmol/L (19-24); Allen Test Performed? Yes
[2022-10-11 16:23] VITALS: TEMP 97.2
[2022-10-11 18:07] LABS: Glucose,Whole Blood 128 mg/dL (70-110)
[2022-10-11 18:18] VITALS: BP 160/68; PULSE 69
--- NOTE | 2022-10-29 10:18 | P.OP ---
Date of Procedure: 10/07/22 Preoperative Diagnosis: Respiratory failure Malnutrition Postoperative Diagnosis: Same Procedure(s) Performed: Tracheostomy PEG tube placement Anesthesia: CLAU Surgeon: [place] Figueroa Pathology: none sent Condition: stable Disposition: PACU Description of Procedure: The patient's placed on the bed in the supine position. The patient received general anesthesia. The neck was prepped and draped in usual sterile fashion. A standard transverse skin incision was made approximately 2 cm above the sternal notch. Using electrocautery the subcutaneous tissues were divided. The platysma was divided. A [place] retractor was placed in the wound. Next the strap muscles were divided in the midline. Another weatlander retractor was placed the wound. The pretracheal fat was then divided with left cautery. The trachea was exposed. At this point the LEVEL DESIGNER advance the and the tracheal tube into the right mainstem bronchus. The balloon was inflated. A tracheotomy was then performed between the second and third tracheal rings. The perivascular tissues a gracilis the trachea. The endotracheal tube was brought back under direct vision. And then the #8 [place] tracheostomy tube was placed into the trachea. End-tidal CO2 was confirmed. The patient had been connected to the ventilator. The patient was ventilated satisfactory. The skin incision site was then closed with 3-0 nylon after the retractors were withdrawn. An umbilical tie was used to secure the tracheostomy tube. Next the gastroscope placed oropharynx passed in the esophagus and stomach. There is no evidence of any outlet obstruction. Stomach was insufflated with air. The light reflux seen the anterior abdominal wall. The abdomen was prepped and draped usual fashion. The skin was incised. And the needles placed and stomach under direct visualization. The needle was snared. And the wires placed through the needle and the wire was snared and brought the oropharynx. The PEG tube was placed over top the wire brought down to the stomach. The PEG tube was secured. At the 3 cm jose. The one-piece bolster was used. Patient tolerated procedure well.
== END 2022-10-11 18:42 | DRG 3 ==
LOC: EC 15:00 → EEVIPCON 17:03 → 2SICU 17:03
PROVIDERS: ADMIT Internal Medicine; ATTEND Internal Medicine
PROC: 0BH18EZ Insertion of Endotracheal Airway into Trachea, Via Natural or Artificial Opening Endoscopic (ICD-10-PCS; 2022-09-28)
PROC: 5A1955Z Respiratory Ventilation, Greater than 96 Consecutive Hours (ICD-10-PCS; 2022-09-28)
PROC: 5A1223Z Performance of Cardiac Pacing, Continuous (ICD-10-PCS; 2022-09-28)
PROC: 04HY32Z Insertion of Monitoring Device into Lower Artery, Percutaneous Approach (ICD-10-PCS; 2022-09-28)
PROC: 4A133J1 Monitoring of Arterial Pulse, Peripheral, Percutaneous Approach (ICD-10-PCS; 2022-09-28)
PROC: 4A133B1 Monitoring of Arterial Pressure, Peripheral, Percutaneous Approach (ICD-10-PCS; 2022-09-28)
PROC: 3E043XZ Introduction of Vasopressor into Central Vein, Percutaneous Approach (ICD-10-PCS; 2022-09-28)
PROC: 03HY32Z Insertion of Monitoring Device into Upper Artery, Percutaneous Approach (ICD-10-PCS; 2022-10-01)
PROC: 4A133B1 Monitoring of Arterial Pressure, Peripheral, Percutaneous Approach (ICD-10-PCS; 2022-10-01)
PROC: 4A133J1 Monitoring of Arterial Pulse, Peripheral, Percutaneous Approach (ICD-10-PCS; 2022-10-01)
PROC: 4A133J1 Monitoring of Arterial Pulse, Peripheral, Percutaneous Approach (ICD-10-PCS; 2022-10-03)
PROC: 4A133B1 Monitoring of Arterial Pressure, Peripheral, Percutaneous Approach (ICD-10-PCS; 2022-10-03)
PROC: 03HY32Z Insertion of Monitoring Device into Upper Artery, Percutaneous Approach (ICD-10-PCS; 2022-10-03)
PROC: 02HV33Z Insertion of Infusion Device into Superior Vena Cava, Percutaneous Approach (ICD-10-PCS; 2022-10-06)
PROC: 0B110F4 Bypass Trachea to Cutaneous with Tracheostomy Device, Open Approach (ICD-10-PCS; principal; 2022-10-07 09:35)
PROC: 0DH63UZ Insertion of Feeding Device into Stomach, Percutaneous Approach (ICD-10-PCS; principal; 2022-10-07 09:35)
PROC: 3E0G76Z Introduction of Nutritional Substance into Upper GI, Via Natural or Artificial Opening (ICD-10-PCS; principal; 2022-10-07 09:35)
PROC: 0BW18FZ Revision of Tracheostomy Device in Trachea, Via Natural or Artificial Opening Endoscopic (ICD-10-PCS; 2022-10-09)
PROC: 0BJ08ZZ Inspection of Tracheobronchial Tree, Via Natural or Artificial Opening Endoscopic (ICD-10-PCS; 2022-10-09)
DX: I63.9 Cerebral infarction, unspecified (principal); J96.01 Acute respiratory failure with hypoxia; N17.0 Acute kidney failure with tubular necrosis; E44.1 Mild protein-calorie malnutrition; G81.94 Hemiplegia, unspecified affecting left nondominant side; G93.1 Anoxic brain damage, not elsewhere classified; I16.1 Hypertensive emergency; J98.11 Atelectasis; Z68.1 Body mass index [BMI] 19.9 or less, adult; J95.03 Malfunction of tracheostomy stoma; E11.40 Type 2 diabetes mellitus with diabetic neuropathy, unspecified; E87.5 Hyperkalemia; F17.210 Nicotine dependence, cigarettes, uncomplicated; F32.A Depression, unspecified; F41.9 Anxiety disorder, unspecified; G40.909 Epilepsy, unspecified, not intractable, without status epilepticus; I10 Essential (primary) hypertension; R00.1 Bradycardia, unspecified; I44.1 Atrioventricular block, second degree; Z66 Do not resuscitate; M19.90 Unspecified osteoarthritis, unspecified site; Z71.3 Dietary counseling and surveillance; I95.9 Hypotension, unspecified; F10.21 Alcohol dependence, in remission; Z87.820 Personal history of traumatic brain injury; R41.3 Other amnesia; T50.905A Adverse effect of unspecified drugs, medicaments and biological substances, initial encounter; Z79.84 Long term (current) use of oral hypoglycemic drugs; Z79.899 Other long term (current) drug therapy; Z91.148 Patient's other noncompliance with medication regimen for other reason; Z82.3 Family history of stroke; Z91.199 Patient's noncompliance with other medical treatment and regimen due to unspecified reason
CPT/HCPCS: 33210; 36415; 36573; 36600; 43246; 70450; 71045; 80048; 80053; 80061; 80306; 80320; 81001; 82550; 82553; 82805; 83036; 83605; 83735; 84100; 84132; 84145; 84484; 85025; 85027; 85610; 85730; 87040; 87070; 87077; 87086; 87186; 87205; 93005; 93306; 93880; 94002; 94003; 94640; 95700; 95713; 95822; 96361; 96365; 96367; 96368; 96375; 99291

== ENCOUNTER 2022-11-25 08:03 | Inpatient (IN) | payer MEDICARE, OTHER ==
[2022-11-25] MEDS ORDERED: SODIUM CHLORIDE 0.9% 500 ML 500 ML IV STA (08:20)
[2022-11-25] MEDS ORDERED: SODIUM CHLORIDE 0.9% 1,000 ML IV STA (08:20)
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
[2022-11-25 08:44] LABS: Basophils # (A) 0.1 k/uL (0-0.2); Basophils % (A) 0 %; Eosinophils # (A) 0.3 k/uL (0-0.7); Eosinophils % (A) 2 %; HCT 29.9 % (39.0-53.0); HGB 10.2 gm/dL (13.0-17.5); Lymphocytes # (A) 1.2 k/uL (1.0-4.8); Lymphocytes % (A) 10 %; MCH 33.1 pg (25.0-35.0); MCV 97.2 fL (80.0-100.0); Mean Platelet Volume 9.4; Monocytes # (A) 0.7 k/uL (0-1.0); Monocytes % (A) 6 %; Neutrophils # (A) 9.4 k/uL (1.3-7.7); Neutrophils % (A) 80 %; Platelet Count 319 k/uL (150-450); RBC 3.08 m/uL (4.30-5.90); RDW 14.4 % (11.5-15.5); WBC 11.8 k/uL (3.8-10.6)
[2022-11-25 09:00] LABS: ALT 107 U/L (4-49); AST 56 U/L (17-59); African American GFR (CKD) 69 (>60 ml/min/1.73 sqM); Alkaline Phosphatase 599 U/L (38-126); Anion Gap 14 mmol/L; Calcium 10.8 mg/dL (8.4-10.2); Carbon Dioxide 25 mmol/L (22-30); Chloride 105 mmol/L (98-107); Glucose 160 mg/dL (74-99); Non-African American GFR(CKD) 59 (>60 ml/min/1.73 sqM); Potassium 5.4 mmol/L (3.5-5.1); Sodium 144 mmol/L (137-145); Total Bilirubin 0.5 mg/dL (0.2-1.3); Total Protein 7.5 g/dL (6.3-8.2)
[2022-11-25 09:09] LABS: Blood Urea Nitrogen 117 mg/dL (9-20)
--- NOTE | 2022-11-25 09:13 | XR ---
EXAMINATION TYPE: XR chest 1V portable DATE OF EXAM: 11/25/2022 COMPARISON: NONE HISTORY: Weakness TECHNIQUE: Single frontal view of the chest is obtained. FINDINGS: There is no focal air space opacity, pleural effusion, or pneumothorax seen. The cardiac silhouette size is within normal limits. The osseous structures are intact. AC joint arthropathy. C oarsened interstitial. Chronic deformities of the left rib cage suggesting trauma. Calcifications sof t tissue the neck. Vascular. Underlying COPD suspected. IMPRESSION: Correlate for interstitial pneumonitis or bronchitis. Venous congestion felt less likely .
[2022-11-25] MEDS ORDERED: NALOXONE 0.4 MG/ML 1 ML VIAL IV PRN (09:27)
[2022-11-25] MEDS: SODIUM CHLORIDE 0.9% 1,000 ML IV SCH ×2 (09:33→20:55)
[2022-11-25] MEDS ORDERED: HYDROcodone/APAP 5-325MG 1 EACH TAB PEG/G-TUBE PRN (09:57)
[2022-11-25] MEDS ORDERED: ACETAMINOPHEN TAB 325 MG TAB PEG/G-TUBE PRN (14:14)
[2022-11-25] MEDS ORDERED: SODIUM ZIRCONIUM CYCLOSILICATE 10 GM PACKET PO ONE (14:22)
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
--- NOTE | 2022-11-25 14:29 | US ---
EXAMINATION TYPE: US kidneys/renal and bladder DATE OF EXAM: 11/25/2022 COMPARISON: NONE CLINICAL INDICATION: Male, 57 years old with history of kin; KIN EXAM MEASUREMENTS: Right Kidney: 9.2 x 5.4 x 5.1 cm Left Kidney: 9.1 x 5.0 x 5.4 cm Right Kidney: No hydronephrosis or masses seen Left Kidney: No hydronephrosis or masses seen Bladder: Layering debri noted posterior bladder Bilateral Jets seen: Yes There is no evidence for hydronephrosis at this point in time. No nephrolithiasis is seen. No shahla s are identified. Bilateral ureteral jets are seen. Renal cortex is normal echogenicity and thickness . Patient is mentally impaired - difficult and limited exam. Incidental Finding - Hydropic gallbladder measuring 13.4 x 4.0 cm IMPRESSION: 1. There is incidental finding of a hydropic gallbladder. Correlate clinically. 2. There is debris posteriorly laying within the bladder which may represent infectious or blood prod ucts correlate with urinalysis. 3. No hydronephrosis or nephrolithiasis.
[2022-11-25] MEDS ORDERED: NON FORMULARY DRUG (Glucerna Shake 1 CAN Ml) PEG/G-TUBE SCH (14:30)
[2022-11-25] MEDS: CYCLOBENZAPRINE 5 MG TAB PEG/G-TUBE PRN (16:26)
[2022-11-25] MEDS: HYDROcodone/APAP 7.5-325MG 1 EACH TAB PEG/G-TUBE PRN (16:27)
[2022-11-25 17:32] LABS: Appearance,Urine Clear (Clear); Bacteria,Urine Many /hpf; Bilirubin,Urine Negative (Negative); Blood,Urine Negative (Negative); Color,Urine Light Yellow; Glucose,Urine (UA) Negative (Negative); Ketones,Urine Negative (Negative); Leukocyte Esterase,Urine Large (Negative); Mucus,Urine Rare /hpf; Nitrite,Urine Negative (Negative); Protein,Urine Negative (Negative); RBC,Urine <1 /hpf (0-5); Specific Gravity,Urine 1.015 (1.001-1.035); Urobilinogen,Urine <2.0 mg/dL (<2.0); WBC,Urine 4 /hpf (0-5)
[2022-11-25] MEDS: GABAPENTIN 300 MG CAP PEG/G-TUBE SCH (19:35)
[2022-11-25] MEDS: cloNIDine HCL 0.1 MG TAB PEG/G-TUBE SCH (19:35)
[2022-11-25] MEDS: HEPARIN SODIUM,PORCINE 5,000 UNIT/ML 1 ML VIAL SQ SCH (21:00)
[2022-11-25] MEDS: levETIRAcetam 500 MG TAB PEG/G-TUBE SCH (21:00)
[2022-11-25] MEDS: SERTRALINE 25 MG TAB PEG/G-TUBE SCH (21:00)
[2022-11-25] MEDS: SENNOSIDES 8.6 MG TAB PEG/G-TUBE SCH (21:00)
[2022-11-25] MEDS: QUEtiapine 100 MG TAB PEG/G-TUBE SCH (21:01)
[2022-11-25] MEDS: ATORVASTATIN 40 MG TAB PEG/G-TUBE SCH (21:01)
[2022-11-25] MEDS: PANTOPRAZOLE SODIUM 40 MG GRANULE PKT PEG/G-TUBE SCH (21:22)
[2022-11-26] MEDS: HYDROcodone/APAP 7.5-325MG 1 EACH TAB PEG/G-TUBE PRN ×3 (00:12→21:54)
[2022-11-26] MEDS: CYCLOBENZAPRINE 5 MG TAB PEG/G-TUBE PRN (05:46)
[2022-11-26] MEDS: cloNIDine HCL 0.1 MG TAB PEG/G-TUBE SCH ×3 (07:04→18:35)
[2022-11-26] MEDS: GABAPENTIN 300 MG CAP PEG/G-TUBE SCH ×2 (07:05→18:35)
[2022-11-26] MEDS: levETIRAcetam 500 MG TAB PEG/G-TUBE SCH ×2 (10:35→21:48)
[2022-11-26] MEDS: HEPARIN SODIUM,PORCINE 5,000 UNIT/ML 1 ML VIAL SQ SCH ×2 (10:35→21:59)
[2022-11-26] MEDS: LORATADINE 10 MG TAB PEG/G-TUBE SCH (10:35)
[2022-11-26] MEDS: allopurinoL 100 MG TAB PEG/G-TUBE SCH (10:36)
[2022-11-26] MEDS: PANTOPRAZOLE SODIUM 40 MG GRANULE PKT PEG/G-TUBE SCH ×2 (10:36→21:50)
[2022-11-26] MEDS: TAMSULOSIN 0.4 MG CAP.ER.24H PO SCH (10:36)
[2022-11-26] MEDS: polyethylene glycoL 3350 17 GM POWD.PACK PEG/G-TUBE SCH (10:36)
[2022-11-26] MEDS: SENNOSIDES 8.6 MG TAB PEG/G-TUBE SCH ×2 (10:36→21:50)
[2022-11-26] MEDS: QUEtiapine 100 MG TAB PEG/G-TUBE SCH ×2 (10:36→21:51)
[2022-11-26] MEDS: SODIUM CHLORIDE 0.9% 1,000 ML IV SCH (11:40)
[2022-11-26 12:07] LABS: Basophils # (A) 0.1 k/uL (0-0.2); Basophils % (A) 1 %; Eosinophils # (A) 0.2 k/uL (0-0.7); Eosinophils % (A) 2 %; HGB 9.2 gm/dL (13.0-17.5); Lymphocytes # (A) 1.1 k/uL (1.0-4.8); Lymphocytes % (A) 12 %; MCH 31.8 pg (25.0-35.0); MCHC 32.9 g/dL (31.0-37.0); MCV 96.5 fL (80.0-100.0); Mean Platelet Volume 9.2; Monocytes # (A) 0.5 k/uL (0-1.0); Monocytes % (A) 5 %; Neutrophils # (A) 7.3 k/uL (1.3-7.7); Neutrophils % (A) 78 %; Platelet Count 333 k/uL (150-450); RDW 14.4 % (11.5-15.5); WBC 9.3 k/uL (3.8-10.6)
[2022-11-26 12:21] LABS: African American GFR (CKD) >90 (>60 ml/min/1.73 sqM); Anion Gap 13 mmol/L; Blood Urea Nitrogen 41 mg/dL (9-20); Calcium 9.6 mg/dL (8.4-10.2); Carbon Dioxide 18 mmol/L (22-30); Chloride 105 mmol/L (98-107); Glucose 99 mg/dL (74-99); Non-African American GFR(CKD) >90 (>60 ml/min/1.73 sqM); Potassium 4.8 mmol/L (3.5-5.1); Sodium 136 mmol/L (137-145)
--- NOTE | 2022-11-26 13:39 | P.PN ---
Subjective Progress Note Date: 11/26/22 Hospital Course: 57-year-old male with recent ischemic stroke, PEG tube dependent, hypertension, dyslipidemia, seizure disorder, depression/anxiety presented with KIN, hyperkalemia, uremia and dehydration. In the ED, temperature was 98.1, pulse 103, respiratory rate 18, blood pressure 121/69, saturating at 96% on room air. WBC 11.8, hemoglobin 10.2, potassium 5.4, BUN 117, creatinine 1.32, calcium 10.8, elevated ALP, elevated ALT. Chest x-ray independently interpreted shows interstitial opacities. EKG independently interpreted shows sinus tachycardia. Patient started on IV fluids, admitted for further workup for acute kidney injury. Subjective: Patient seen and examined at bedside. No acute events overnight. Pertinent positives and negatives as discussed above, a complete review of systems was performed and all other systems are negative. Vitals Signs Reviewed. General: nontoxic, no distress, appears at stated age Derm: warm, dry, PEG tube site is clean Head: atraumatic, normocephalic, symmetric Eyes: EOMI, no lid lag, anicteric sclera, pupils equal round reactive to light ENT: Nose and ears atraumatic Neck: No thyromegaly, supple Mouth: no lip lesion, mucus membranes moist Cardiovascular: S1S2 reg, no murmur, no edema Lungs: clear to auscultation bilateral, no rhonchi, no rales, no wheeze, no accessory muscle use Abdominal: soft, nontender to palpation, no guarding, no appreciable organomegaly Ext: no gross muscle atrophy, right arm paralysis, no contractures Neuro: CN II-XII grossly intact Psych: Alert, not oriented, appropriate affect Data Reviewed Today: Pertinent Labs: Hemoglobin 9.2, WBC 9.3, sodium 136, potassium 4.8, bicarb 18, BUN 41, creatinine 0.73, calcium 9.6 Imaging: Renal ultrasound debris posteriorly within the bladder, right and left kidney no hydronephrosis or masses Assessment and Plan: Active: Acute kidney injury, resolved Hyperkalemia, resolved Uremia, improving Leukocytosis, resolved Dehydration, improving Hypercalcemia, resolved Transaminitis Sinus tachycardia, resolved -Continue IV fluids, changed to lactated Ringer -Possible discharge tomorrow -Although urinalysis does show large leukocyte esterase and many bacteria, negative nitrite, no other infectious signs that would warrant treating urinary tract infection. Likely colonization. Chronic: Chronic normocytic anemia History of ischemic stroke, PEG dependent Hypertension Dyslipidemia Seizure disorder Depression/anxiety DVT ppx: Subcu heparin Code status: No code Anticipated discharge place: Back to facility Anticipated discharge time: Likely tomorrow Objective - Vital Signs Vital signs: Vital Signs Temp 98.6 F 11/26/22 07:44 Pulse 101 H 11/26/22 10:27 Resp 18 11/26/22 10:27 BP 132/76 11/26/22 10:27 Pulse Ox 97 11/26/22 10:27 FiO2 Intake & Output 11/25/22 11/26/22 11/26/22 18:59 06:59 18:59 Weight 90.718 kg 90.718 kg - Labs CBC & Chem 7: 11/26/22 11:17 11/26/22 11:17 Labs: Abnormal Lab Results - Last 24 Hours (Table) 11/25/22 11/26/22 11/26/22 Range/Units 08:25 11:17 11:17 RBC 2.90 L (4.30-5.90) m/uL Hgb 9.2 L (13.0-17.5) gm/dL Hct 28.0 L (39.0-53.0) % Sodium 136 L (137-145) mmol/L Carbon Dioxide 18 L (22-30) mmol/L BUN 41 H (9-20) mg/dL Ur Leukocyte Esterase Large H (Negative) Urine Bacteria Many H (None) /hpf Urine Mucus Rare H (None) /hpf
[2022-11-26] MEDS: LACTATED RINGERS 1,000 ML IV SCH (14:12)
[2022-11-26] MEDS: ATORVASTATIN 40 MG TAB PEG/G-TUBE SCH (21:50)
[2022-11-26] MEDS: SERTRALINE 25 MG TAB PEG/G-TUBE SCH (21:50)
[2022-11-27] MEDS: CYCLOBENZAPRINE 5 MG TAB PEG/G-TUBE PRN (00:40)
[2022-11-27] MEDS: LACTATED RINGERS 1,000 ML IV SCH ×2 (01:43→14:43)
[2022-11-27] MEDS: cloNIDine HCL 0.1 MG TAB PEG/G-TUBE SCH ×3 (06:22→18:22)
[2022-11-27] MEDS: GABAPENTIN 300 MG CAP PEG/G-TUBE SCH ×2 (06:22→18:22)
[2022-11-27] MEDS: HYDROcodone/APAP 7.5-325MG 1 EACH TAB PEG/G-TUBE PRN ×3 (06:25→20:37)
[2022-11-27 08:39] LABS: Basophils # (A) 0.1 k/uL (0-0.2); Basophils % (A) 1 %; Eosinophils # (A) 0.3 k/uL (0-0.7); Eosinophils % (A) 3 %; HCT 26.2 % (39.0-53.0); HGB 8.9 gm/dL (13.0-17.5); Lymphocytes # (A) 1.3 k/uL (1.0-4.8); Lymphocytes % (A) 14 %; MCH 32.6 pg (25.0-35.0); MCV 95.8 fL (80.0-100.0); Mean Platelet Volume 8.8; Monocytes # (A) 0.6 k/uL (0-1.0); Monocytes % (A) 7 %; Neutrophils # (A) 6.6 k/uL (1.3-7.7); Neutrophils % (A) 74 %; Platelet Count 375 k/uL (150-450); RBC 2.73 m/uL (4.30-5.90); RDW 14.4 % (11.5-15.5)
[2022-11-27 08:46] LABS: African American GFR (CKD) >90 (>60 ml/min/1.73 sqM); Anion Gap 11 mmol/L; Blood Urea Nitrogen 31 mg/dL (9-20); Calcium 9.3 mg/dL (8.4-10.2); Carbon Dioxide 19 mmol/L (22-30); Chloride 104 mmol/L (98-107); Glucose 143 mg/dL (74-99); Non-African American GFR(CKD) >90 (>60 ml/min/1.73 sqM); Potassium 4.6 mmol/L (3.5-5.1); Sodium 134 mmol/L (137-145)
[2022-11-27] MEDS: LORATADINE 10 MG TAB PEG/G-TUBE SCH (09:24)
[2022-11-27] MEDS: SENNOSIDES 8.6 MG TAB PEG/G-TUBE SCH ×2 (09:24→20:33)
[2022-11-27] MEDS: TAMSULOSIN 0.4 MG CAP.ER.24H PO SCH (09:24)
[2022-11-27] MEDS: levETIRAcetam 500 MG TAB PEG/G-TUBE SCH ×2 (09:24→20:33)
[2022-11-27] MEDS: polyethylene glycoL 3350 17 GM POWD.PACK PEG/G-TUBE SCH (09:24)
[2022-11-27] MEDS: PANTOPRAZOLE SODIUM 40 MG GRANULE PKT PEG/G-TUBE SCH ×2 (09:24→20:34)
[2022-11-27] MEDS: allopurinoL 100 MG TAB PEG/G-TUBE SCH (09:24)
[2022-11-27] MEDS: HEPARIN SODIUM,PORCINE 5,000 UNIT/ML 1 ML VIAL SQ SCH ×2 (09:25→20:34)
[2022-11-27] MEDS: QUEtiapine 100 MG TAB PEG/G-TUBE SCH ×2 (09:25→20:33)
--- NOTE | 2022-11-27 13:47 | P.PN ---
Subjective Progress Note Date: 11/27/22 Hospital Course: 57-year-old male with recent ischemic stroke, PEG tube dependent, hypertension, dyslipidemia, seizure disorder, depression/anxiety presented with KIN, hyperkalemia, uremia and dehydration. In the ED, temperature was 98.1, pulse 103, respiratory rate 18, blood pressure 121/69, saturating at 96% on room air. WBC 11.8, hemoglobin 10.2, potassium 5.4, BUN 117, creatinine 1.32, calcium 10.8, elevated ALP, elevated ALT. Chest x-ray independently interpreted shows interstitial opacities. EKG independently interpreted shows sinus tachycardia. Patient started on IV fluids, admitted for further workup for acute kidney injury. Renal function improved with IV fluids. Renal ultrasound debris posteriorly within the bladder, right and left kidney no hydronephrosis or ma sses. Pending discharge back to placement. Subjective: Patient seen and examined at bedside. No acute events overnight. Pertinent positives and negatives as discussed above, a complete review of systems was performed and all other systems are negative. Vitals Signs Reviewed. General: nontoxic, no distress, appears at stated age Derm: warm, dry, PEG tube site is clean Head: atraumatic, normocephalic, symmetric Eyes: EOMI, no lid lag, anicteric sclera, pupils equal round reactive to light ENT: Nose and ears atraumatic Neck: No thyromegaly, supple Mouth: no lip lesion, mucus membranes moist Cardiovascular: S1S2 reg, no murmur, no edema Lungs: clear to auscultation bilateral, no rhonchi, no rales, no wheeze, no accessory muscle use Abdominal: soft, nontender to palpation, no guarding, no appreciable organomegaly Ext: no gross muscle atrophy, right arm paralysis, no contractures Neuro: CN II-XII grossly intact Psych: Alert, not oriented, appropriate affect Data Reviewed Today: Pertinent Labs: Hemoglobin 8.9, sodium 134, bicarbonate 19, BUN 31, creatinine 0.63 Imaging: no new imaging Assessment and Plan: Active: Acute kidney injury, resolved Hyperkalemia, resolved Uremia, improving Leukocytosis, resolved Dehydration, improving Hypercalcemia, resolved Transaminitis Sinus tachycardia, resolved -Continue IV fluids, lactated Ringer -Pending discharge to the facility -Although urinalysis does show large leukocyte esterase and many bacteria, negative nitrite, no other infectious signs that would warrant treating urinary tract infection. Likely colonization. Chronic: Chronic normocytic anemia History of ischemic stroke, PEG dependent Hypertension Dyslipidemia Seizure disorder Depression/anxiety DVT ppx: Subcu heparin Code status: No code Anticipated discharge place: Back to facility Anticipated discharge time: Likely tuesday Objective - Vital Signs Vital signs: Vital Signs Temp 97.9 F 11/27/22 07:39 Pulse 92 11/27/22 07:39 Resp 16 11/27/22 07:39 BP 125/77 11/27/22 07:39 Pulse Ox 98 11/27/22 11:38 FiO2 21 11/27/22 11:38 Intake & Output 11/26/22 11/27/22 11/27/22 18:59 06:59 18:59 Output Total 700 Balance -700 Weight 90.718 kg Output: Urine 700 Other: # Bowel Movements 1 - Labs CBC & Chem 7: 11/27/22 07:27 11/27/22 07:27 Labs: Abnormal Lab Results - Last 24 Hours (Table) 11/27/22 11/27/22 Range/Units 07:27 07:27 RBC 2.73 L (4.30-5.90) m/uL Hgb 8.9 L (13.0-17.5) gm/dL Hct 26.2 L (39.0-53.0) % Sodium 134 L (137-145) mmol/L Carbon Dioxide 19 L (22-30) mmol/L BUN 31 H (9-20) mg/dL Creatinine 0.63 L (0.66-1.25) mg/dL Glucose 143 H (74-99) mg/dL
[2022-11-27] MEDS: ATORVASTATIN 40 MG TAB PEG/G-TUBE SCH (20:33)
[2022-11-27] MEDS: SERTRALINE 25 MG TAB PEG/G-TUBE SCH (20:33)
[2022-11-28] MEDS: cloNIDine HCL 0.1 MG TAB PEG/G-TUBE SCH ×3 (06:47→18:25)
[2022-11-28] MEDS: GABAPENTIN 300 MG CAP PEG/G-TUBE SCH ×2 (06:47→18:25)
[2022-11-28] MEDS: LACTATED RINGERS 1,000 ML IV SCH ×2 (06:50→18:26)
[2022-11-28 07:01] LABS: Basophils % (A) 0 %; Eosinophils # (A) 0.3 k/uL (0-0.7); Eosinophils % (A) 3 %; HCT 27.1 % (39.0-53.0); HGB 9.1 gm/dL (13.0-17.5); Lymphocytes # (A) 1.3 k/uL (1.0-4.8); Lymphocytes % (A) 14 %; MCH 32.1 pg (25.0-35.0); MCHC 33.5 g/dL (31.0-37.0); MCV 95.8 fL (80.0-100.0); Mean Platelet Volume 8.5; Monocytes # (A) 0.5 k/uL (0-1.0); Monocytes % (A) 5 %; Neutrophils # (A) 6.7 k/uL (1.3-7.7); Neutrophils % (A) 75 %; Platelet Count 363 k/uL (150-450); RBC 2.83 m/uL (4.30-5.90); RDW 14.4 % (11.5-15.5); WBC 8.9 k/uL (3.8-10.6)
[2022-11-28 07:18] LABS: African American GFR (CKD) >90 (>60 ml/min/1.73 sqM); Anion Gap 9 mmol/L; Blood Urea Nitrogen 25 mg/dL (9-20); Calcium 9.1 mg/dL (8.4-10.2); Carbon Dioxide 23 mmol/L (22-30); Chloride 102 mmol/L (98-107); Glucose 123 mg/dL (74-99); Non-African American GFR(CKD) >90 (>60 ml/min/1.73 sqM); Potassium 4.5 mmol/L (3.5-5.1); Sodium 134 mmol/L (137-145)
[2022-11-28] MEDS: HEPARIN SODIUM,PORCINE 5,000 UNIT/ML 1 ML VIAL SQ SCH ×2 (09:19→20:36)
[2022-11-28] MEDS: HYDROcodone/APAP 7.5-325MG 1 EACH TAB PEG/G-TUBE PRN ×2 (09:20→18:25)
[2022-11-28] MEDS: LORATADINE 10 MG TAB PEG/G-TUBE SCH (09:20)
[2022-11-28] MEDS: SENNOSIDES 8.6 MG TAB PEG/G-TUBE SCH ×2 (09:20→20:36)
[2022-11-28] MEDS: TAMSULOSIN 0.4 MG CAP.ER.24H PO SCH (09:20)
[2022-11-28] MEDS: allopurinoL 100 MG TAB PEG/G-TUBE SCH (09:20)
[2022-11-28] MEDS: levETIRAcetam 500 MG TAB PEG/G-TUBE SCH ×2 (09:20→20:37)
[2022-11-28] MEDS: PANTOPRAZOLE SODIUM 40 MG GRANULE PKT PEG/G-TUBE SCH ×2 (09:20→20:36)
[2022-11-28] MEDS: QUEtiapine 100 MG TAB PEG/G-TUBE SCH ×2 (09:21→20:37)
[2022-11-28] MEDS: polyethylene glycoL 3350 17 GM POWD.PACK PEG/G-TUBE SCH (09:21)
--- NOTE | 2022-11-28 12:04 | P.PN ---
Subjective Progress Note Date: 11/28/22 Hospital Course: 57-year-old male with recent ischemic stroke, PEG tube dependent, hypertension, dyslipidemia, seizure disorder, depression/anxiety presented with KIN, hyperkalemia, uremia and dehydration. In the ED, temperature was 98.1, pulse 103, respiratory rate 18, blood pressure 121/69, saturating at 96% on room air. WBC 11.8, hemoglobin 10.2, potassium 5.4, BUN 117, creatinine 1.32, calcium 10.8, elevated ALP, elevated ALT. Chest x-ray independently interpreted shows interstitial opacities. EKG independently interpreted shows sinus tachycardia. Patient started on IV fluids, admitted for further workup for acute kidney injury. Renal function improved with IV fluids. Renal ultrasound debris posteriorly within the bladder, right and left kidney no hydronephrosis or masses. Pending discharge back to placement. Subjective: Patient seen and examined at bedside. No acute events overnight. Pertinent positives and negatives as discussed above, a complete review of systems was performed and all other systems are negative. Vitals Signs Reviewed. General: nontoxic, no distress, appears at stated age Derm: warm, dry, PEG tube site is clean Head: atraumatic, normocephalic, symmetric Eyes: EOMI, no lid lag, anicteric sclera, pupils equal round reactive to light ENT: Nose and ears atraumatic Neck: No thyromegaly, supple Mouth: no lip lesion, mucus membranes moist Cardiovascular: S1S2 reg, no murmur, no edema Lungs: clear to auscultation bilateral, no rhonchi, no rales, no wheeze, no accessory muscle use Abdominal: soft, nontender to palpation, no guarding, no appreciable organomegaly Ext: no gross muscle atrophy, right arm paralysis, no contractures Neuro: CN II-XII grossly intact Psych: Alert, not oriented, appropriate affect Data Reviewed Today: Pertinent Labs: Hemoglobin 9.1, BUN 25, creatinine 0.62 Imaging: no new imaging Assessment and Plan: Active: Acute kidney injury, resolved Hyperkalemia, resolved Uremia, improving Leukocytosis, resolved Dehydration, improving Hypercalcemia, resolved Transaminitis Sinus tachycardia, resolved -Continue IV fluids, lactated Ringer -Pending discharge to the facility -Although urinalysis does show large leukocyte esterase and many bacteria, negative nitrite, no other infectious signs that would warrant treating urinary tract infection. Likely colonization. Chronic: Chronic normocytic anemia History of ischemic stroke, PEG dependent Hypertension Dyslipidemia Seizure disorder Depression/anxiety DVT ppx: Subcu heparin Code status: No code Anticipated discharge place: Back to facility Anticipated discharge time: Likely tuesday Objective - Vital Signs Vital signs: Vital Signs Temp 98.2 F 11/28/22 07:03 Pulse 54 L 11/28/22 07:03 Resp 17 11/28/22 07:03 BP 114/65 11/28/22 07:03 Pulse Ox 94 L 11/28/22 07:03 FiO2 21 11/27/22 11:38 Intake & Output 11/27/22 11/28/22 11/28/22 18:59 06:59 18:59 Output Total 900 1100 Balance -900 -1100 Weight 95.5 kg Output: Urine 900 1100 Other: Voiding Method External Catheter # Voids 4 # Bowel Movements 3 - Labs CBC & Chem 7: 11/28/22 06:33 11/28/22 06:33 Labs: Abnormal Lab Results - Last 24 Hours (Table) 11/28/22 11/28/22 Range/Units 06:33 06:33 RBC 2.83 L (4.30-5.90) m/uL Hgb 9.1 L (13.0-17.5) gm/dL Hct 27.1 L (39.0-53.0) % Sodium 134 L (137-145) mmol/L BUN 25 H (9-20) mg/dL Creatinine 0.62 L (0.66-1.25) mg/dL Glucose 123 H (74-99) mg/dL
[2022-11-28] MEDS: SERTRALINE 25 MG TAB PEG/G-TUBE SCH (20:36)
[2022-11-28] MEDS: ATORVASTATIN 40 MG TAB PEG/G-TUBE SCH (20:37)
[2022-11-29 02:25] VITALS: RESP 19
[2022-11-29] MEDS: GABAPENTIN 300 MG CAP PEG/G-TUBE SCH (06:23)
[2022-11-29] MEDS: cloNIDine HCL 0.1 MG TAB PEG/G-TUBE SCH ×2 (06:23→14:18)
[2022-11-29] MEDS: HYDROcodone/APAP 7.5-325MG 1 EACH TAB PEG/G-TUBE PRN ×2 (06:23→14:25)
[2022-11-29] MEDS: LACTATED RINGERS 1,000 ML IV SCH (06:23)
[2022-11-29] MEDS: polyethylene glycoL 3350 17 GM POWD.PACK PEG/G-TUBE SCH (09:47)
[2022-11-29] MEDS: SENNOSIDES 8.6 MG TAB PEG/G-TUBE SCH (09:47)
[2022-11-29] MEDS: allopurinoL 100 MG TAB PEG/G-TUBE SCH (09:47)
[2022-11-29] MEDS: QUEtiapine 100 MG TAB PEG/G-TUBE SCH (09:47)
[2022-11-29] MEDS: HEPARIN SODIUM,PORCINE 5,000 UNIT/ML 1 ML VIAL SQ SCH (09:47)
[2022-11-29] MEDS: levETIRAcetam 500 MG TAB PEG/G-TUBE SCH (09:47)
[2022-11-29] MEDS: PANTOPRAZOLE SODIUM 40 MG GRANULE PKT PEG/G-TUBE SCH (09:47)
[2022-11-29] MEDS: LORATADINE 10 MG TAB PEG/G-TUBE SCH (09:47)
[2022-11-29] MEDS: TAMSULOSIN 0.4 MG CAP.ER.24H PO SCH (09:47)
[2022-11-29 10:27] VITALS: TEMP 98.1
--- NOTE | 2022-11-29 11:09 | P.DS ---
Providers Date of admission: 11/25/22 09:28 Expected date of discharge: 11/29/22 Attending physician: Namrata Alvarez DO Primary care physician: Burt Gill Hospital Course: Discharge Diagnosis: Acute kidney injury Hyperkalemia Uremia Leukocytosis Dehydration Hypercalcemia Transaminitis Sinus tachycardia Chronic normocytic anemia History of ischemic stroke, PEG dependent Hypertension Dyslipidemia Seizure disorder Depression/anxiety Hospital Course: 57-year-old male with recent ischemic stroke, PEG tube dependent, hypertension, dyslipidemia, seizure disorder, depression/anxiety presented with KIN, hyperkalemia, uremia and dehydration. In the ED, temperature was 98.1, pulse 103, respiratory rate 18, blood pressure 121/69, saturating at 96% on room air. WBC 11.8, hemoglobin 10.2, potassium 5.4, BUN 117, creatinine 1.32, calcium 10.8, elevated ALP, elevated ALT. Chest x-ray independently interpreted shows interstitial opacities. EKG independently interpreted shows sinus tachycardia. Patient started on IV fluids, admitted for further workup for acute kidney injury. Renal function improved with IV fluids. Renal ultrasound debris posteriorly within the bladder, right and left kidney no hydronephrosis or m asses. Patient being discharged back to the facility. Patient seen and examined at bedside. Vital signs reviewed and stable. General: nontoxic, no distress, appears at stated age Derm: warm, dry, PEG tube site is clean Head: atraumatic, normocephalic, symmetric Eyes: EOMI, no lid lag, anicteric sclera, pupils equal round reactive to light ENT: Nose and ears atraumatic Neck: No thyromegaly, supple Mouth: no lip lesion, mucus membranes moist Cardiovascular: S1S2 reg, no murmur, no edema Lungs: clear to auscultation bilateral, no rhonchi, no rales, no wheeze, no accessory muscle use Abdominal: soft, nontender to palpation, no guarding, no appreciable organomegaly Ext: no gross muscle atrophy, right arm paralysis, no contractures Neuro: CN II-XII grossly intact Psych: Alert, not oriented, appropriate affect A total of 33 minutes of time were spent preparing this complex discharge summary. Patient was discharged on 11/29/22 at 8:52. Patient Condition at Discharge: Stable Plan - Discharge Summary New Discharge Prescriptions: Continue Loratadine [Claritin] 10 mg PEG/G-TUBE DAILY Cyclobenzaprine [Flexeril] 5 mg PEG/G-TUBE TID PRN PRN Reason: Muscle Spasm Sertraline [Zoloft] 25 mg PEG/G-TUBE HS Heparin Sodium,Porcine (1 ml) [Heparin Sodium] 5,000 unit SQ Q12HR #60 each cloNIDine HCL [Catapres] 0.1 mg PEG/G-TUBE TID@0700,1300,1900 levETIRAcetam [Keppra] 1,500 mg PEG/G-TUBE Q12HR polyethylene glycoL 3350 [Miralax] 17 gm PEG/G-TUBE DAILY Sennosides [Senokot] 8.6 mg PEG/G-TUBE BID HYDROcodone/APAP 7.5-325MG [[place] 7.5-325] 1 tab PEG/G-TUBE Q6H PRN PRN Reason: Pain Atorvastatin Calcium [Lipitor] 40 mg PEG/G-TUBE HS allopurinoL [Zyloprim] 100 mg PEG/G-TUBE DAILY Protonix 40mg Packet [place] 40 mg PEG/G-TUBE BID Silodosin - [place] 8 mg PEG/G-TUBE DAILY Acetaminophen [Tylenol 8 Hour] 650 mg PEG/G-TUBE Q6H PRN PRN Reason: Pain Gabapentin [Neurontin] 300 mg PEG/G-TUBE BID@0700,1900 Glucerna Shake 1 dose PEG/G-TUBE DIRECTED metFORMIN HCL [Glucophage] 500 mg PEG/G-TUBE BID QUEtiapine [SEROquel] 100 mg PEG/G-TUBE BID Discontinued lisinopriL [Prinivil] 20 mg PEG/G-TUBE DAILY Discharge Medication List Loratadine [Claritin] 10 mg PEG/G-TUBE DAILY 10/03/13 [History] Atorvastatin Calcium [Lipitor] 40 mg PEG/G-TUBE HS 09/28/22 [History] Cyclobenzaprine [Flexeril] 5 mg PEG/G-TUBE TID PRN 09/28/22 [History] HYDROcodone/APAP 7.5-325MG [[place] 7.5-325] 1 tab PEG/G-TUBE Q6H PRN 09/28/22 [History] Sertraline [Zoloft] 25 mg PEG/G-TUBE HS 09/28/22 [History] allopurinoL [Zyloprim] 100 mg PEG/G-TUBE DAILY 09/28/22 [History] Heparin Sodium,Porcine (1 ml) [Heparin Sodium] 5,000 unit SQ Q12HR #60 each 10/11/22 [Rx] Acetaminophen [Tylenol 8 Hour] 650 mg PEG/G-TUBE Q6H PRN 11/25/22 [History] Gabapentin [Neurontin] 300 mg PEG/G-TUBE BID@0700,1900 11/25/22 [History] Glucerna Shake 1 dose PEG/G-TUBE DIRECTED 11/25/22 [History] Protonix 40mg Packet [place] 40 mg PEG/G-TUBE BID 11/25/22 [History] QUEtiapine [SEROquel] 100 mg PEG/G-TUBE BID 11/25/22 [History] Sennosides [Senokot] 8.6 mg PEG/G-TUBE BID 11/25/22 [History] Silodosin - [place] 8 mg PEG/G-TUBE DAILY 11/25/22 [History] cloNIDine HCL [Catapres] 0.1 mg PEG/G-TUBE TID@0700,1300,1900 11/25/22 [History] levETIRAcetam [Keppra] 1,500 mg PEG/G-TUBE Q12HR 11/25/22 [History] metFORMIN HCL [Glucophage] 500 mg PEG/G-TUBE BID 11/25/22 [History] polyethylene glycoL 3350 [Miralax] 17 gm PEG/G-TUBE DAILY 11/25/22 [History] Follow up Appointment(s)/Referral(s): Burt Gill MD [Primary Care Provider] - 1-2 days (Please call for a follow-up appointment.) [facility], [NON-STAFF] - As Needed Patient Instructions/Handouts: Acute Kidney Injury (GEN) Activity/Diet/Wound Care/Special Instructions: Please see your PCP. Discharge Disposition: TRANSFER TO SNF/ECF
[2022-11-29 12:47] VITALS: BMI 32.1
[2022-11-29 14:26] VITALS: BP 128/72; PULSE 71
== END 2022-11-29 15:17 | DRG 684 ==
LOC: EC 08:03 → 4SSUR 09:28
PROVIDERS: ADMIT Internal Medicine; ATTEND Internal Medicine
DX: N17.9 Acute kidney failure, unspecified (principal); E87.5 Hyperkalemia; E83.52 Hypercalcemia; E86.0 Dehydration; R74.01 Elevation of levels of liver transaminase levels; E11.42 Type 2 diabetes mellitus with diabetic polyneuropathy; R00.0 Tachycardia, unspecified; D64.9 Anemia, unspecified; I10 Essential (primary) hypertension; E78.5 Hyperlipidemia, unspecified; Z93.1 Gastrostomy status; G40.909 Epilepsy, unspecified, not intractable, without status epilepticus; F32.A Depression, unspecified; F41.9 Anxiety disorder, unspecified; Z86.73 Personal history of transient ischemic attack (TIA), and cerebral infarction without residual deficits; Z79.899 Other long term (current) drug therapy; Z79.84 Long term (current) use of oral hypoglycemic drugs
CPT/HCPCS: 36415; 71045; 76770; 80048; 80053; 81001; 83605; 85025; 93005; 94760; 96361; 96372; 96374; 99285

== ENCOUNTER 2023-12-02 10:52 | Inpatient (IN) | payer MEDICARE, OTHER ==
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
[2023-12-02 12:43] LABS: Basophils # (A) 0.1 k/uL (0-0.2); Basophils % (A) 1 %; Eosinophils # (A) 0.1 k/uL (0-0.7); Eosinophils % (A) 1 %; HCT 46.3 % (39.0-53.0); Lymphocytes # (A) 1.6 k/uL (1.0-4.8); Lymphocytes % (A) 10 %; MCH 30.6 pg (25.0-35.0); MCHC 32.4 g/dL (31.0-37.0); MCV 94.3 fL (80.0-100.0); Mean Platelet Volume 7.8; Monocytes # (A) 0.9 k/uL (0-1.0); Monocytes % (A) 6 %; Neutrophils # (A) 13.4 k/uL (1.3-7.7); Neutrophils % (A) 83 %; Platelet Count 263 k/uL (150-450); RBC 4.91 m/uL (4.30-5.90); RDW 15.5 % (11.5-15.5); WBC 16.2 k/uL (3.8-10.6)
[2023-12-02 12:57] LABS: INR 0.9 (<1.2); Partial Thromboplastin Time 22.9 sec (22.0-30.0)
[2023-12-02 13:13] LABS: ALT 55 U/L (4-49); AST 63 U/L (17-59); African American GFR (CKD) 28 (>60 ml/min/1.73 sqM); Albumin 4.6 g/dL (3.5-5.0); Alkaline Phosphatase 179 U/L (38-126); Anion Gap 14 mmol/L; Blood Urea Nitrogen 70 mg/dL (9-20); Calcium 9.5 mg/dL (8.4-10.2); Carbon Dioxide 19 mmol/L (22-30); Chloride 110 mmol/L (98-107); Glucose 95 mg/dL (74-99); Magnesium 1.9 mg/dL (1.6-2.3); Non-African American GFR(CKD) 24 (>60 ml/min/1.73 sqM); Phosphorus 5.5 mg/dL (2.5-4.5); Sodium 143 mmol/L (137-145); Total Bilirubin 0.5 mg/dL (0.2-1.3); Total Protein 7.6 g/dL (6.3-8.2)
[2023-12-02 13:19] LABS: NT-Pro-B-Type Natriuretic Pept 83 pg/mL
--- NOTE | 2023-12-02 13:36 | CT ---
EXAMINATION TYPE: CT brain terry marroquin DATE OF EXAM: 12/02/2023 COMPARISON: HISTORY: Fall, hx hemorragic stroke CT DLP: 1600.3 mGycm Automated exposure control for dose reduction was used. TECHNIQUE: CT scan of the head and cervical spine are performed without contrast. FINDINGS: Severe intracranial atherosclerotic changes cavernous segment bilateral ICA. There is an area of low attenuation involving the left occipital lobe compatible with remote infarct extending in to the left parietal lobe. Additional areas of abnormal attenuation involving the white matter of cy ateral parietal lobes of encephalomalacia and prior infarct. Grossly no acute hemorrhage. Moderate de generative change. Calvarium is grossly intact. Multilevel hypertrophic and degenerative disc disease. Odontoid intact. Assessment spinal canal limit ed due to resolution and artifact. Atherosclerotic change of the carotid arteries. Severe degenerativ e disc disease is posterior spondylosis and spurring paracentrally left C5-C6 cannot exclude canal st enosis. Uncovertebral joint hypertrophy seen at C5-C6 and greater on the left at C4-C5 with severe le ft-sided foraminal encroachment. Recommend follow-up MRI. IMPRESSION: 1. There is no acute fracture or dislocation evident in the cervical spine. 2. No acute intracranial hemorrhage, mass effect, or midline shift is seen.
[2023-12-02 14:00] LABS: Potassium 6.9 mmol/L (3.5-5.1)
[2023-12-02] MEDS: SODIUM CHLORIDE 0.9% 1,000 ML IV STA ×2 (14:00→14:59)
[2023-12-02] MEDS ORDERED: NALOXONE 0.4 MG/ML 1 ML VIAL IV PRN (14:45)
[2023-12-02] MEDS ORDERED: ONDANSETRON 4 MG/2 ML VIAL IVP PRN (14:45)
[2023-12-02] MEDS: SODIUM BICARB 8.4% 50 ML SYR (1 MEQ/ML) IV STA (14:54)
[2023-12-02] MEDS: INSULIN REGULAR 100 UNIT/ML VIAL (IV) IV ONE (14:57)
[2023-12-02] MEDS: DEXTROSE 50% SYRINGE 50 ML IVP STA (14:59)
--- NOTE | 2023-12-02 15:09 | XR ---
EXAMINATION TYPE: XR chest 1V DATE OF EXAM: 12/02/2023 2:32 PM CLINICAL INDICATION: Male, 58 years old with history of pain; COMPARISON: 11/25/2022 TECHNIQUE: XR chest 1V Frontal view of the chest. FINDINGS: Lungs/Pleura: There is no evidence of pleural effusion, focal consolidation, or pneumothorax. Pulmonary vascularity: Unremarkable. Heart/mediastinum: Cardiomediastinal silhouette is unremarkable. Musculoskeletal: No acute osseous pathology. Other findings: None IMPRESSION: No acute cardiopulmonary disease/process.
--- NOTE | 2023-12-02 15:10 | XR ---
EXAMINATION TYPE: XR pelvis AP view DATE OF EXAM: 12/02/2023 2:32 PM CLINICAL INDICATION: Male, 58 years old with history of pain; COMPARISON: None TECHNIQUE: XR pelvis AP view, examined in a single projection. FINDINGS: There is no evidence of fracture or dislocation. There is no soft tissue abnormality. No a bnormal calcifications are present. The spine appears intact. The hips appear intact. Osteophyte form ation of the superior acetabulum bilaterally with mild joint space narrowing. Right sacroiliac joint screws appear intact. IMPRESSION: No acute osseous pathology. Mild degeneration changes of the hip.
[2023-12-02] MEDS: MORPHINE SULFATE 4 MG/ML SYRINGE IV STA (15:12)
[2023-12-02] MEDS: SODIUM CHLORIDE 0.9% 1,000 ML IV SCH (15:13)
[2023-12-02] MEDS: SODIUM ZIRCONIUM CYCLOSILICATE 10 GM PACKET PO ONE (15:13)
[2023-12-02] MEDS: ALBUTEROL NEBULIZED (CONC) 20 MG, SODIUM CHLORIDE 0.9% NEBULIZ 3 ML INHALATION ONE (15:25)
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
[2023-12-02] MEDS: QUEtiapine 100 MG TAB PO SCH (20:24)
[2023-12-02] MEDS: ATORVASTATIN 40 MG TAB PO SCH (20:24)
[2023-12-02] MEDS: cloNIDine HCL 0.1 MG TAB PO SCH (20:24)
[2023-12-02] MEDS: SODIUM ZIRCONIUM CYCLOSILICATE 10 GM PACKET PO SCH (20:25)
[2023-12-02] MEDS: QUEtiapine 25 MG TAB PO SCH (20:25)
[2023-12-02] MEDS: SERTRALINE 25 MG TAB PO SCH (20:33)
[2023-12-02] MEDS: MORPHINE SULFATE 4 MG/ML SYRINGE IV PRN (20:34)
[2023-12-02 21:12] LABS: Glucose,Whole Blood 111 mg/dL (70-110)
[2023-12-02 22:16] LABS: African American GFR (CKD) 66 (>60 ml/min/1.73 sqM); Anion Gap 5 mmol/L; Blood Urea Nitrogen 46 mg/dL (9-20); Calcium 8.6 mg/dL (8.4-10.2); Carbon Dioxide 20 mmol/L (22-30); Chloride 115 mmol/L (98-107); Glucose 114 mg/dL (74-99); Non-African American GFR(CKD) 57 (>60 ml/min/1.73 sqM); Potassium 5.6 mmol/L (3.5-5.1); Sodium 140 mmol/L (137-145)
[2023-12-02] MEDS: SODIUM POLYSTYRENE SULFONATE 15 GM/60 ML BOTTLE PO STA (22:35)
[2023-12-03 06:09] LABS: Glucose,Whole Blood 85 mg/dL (70-110)
[2023-12-03 08:31] LABS: Basophils # (A) 0.1 k/uL (0-0.2); Basophils % (A) 1 %; Eosinophils # (A) 0.2 k/uL (0-0.7); Eosinophils % (A) 2 %; HCT 41.8 % (39.0-53.0); HGB 13.7 gm/dL (13.0-17.5); Lymphocytes # (A) 1.7 k/uL (1.0-4.8); Lymphocytes % (A) 16 %; MCH 30.9 pg (25.0-35.0); MCHC 32.8 g/dL (31.0-37.0); MCV 94.2 fL (80.0-100.0); Mean Platelet Volume 8.7; Monocytes # (A) 0.6 k/uL (0-1.0); Monocytes % (A) 6 %; Neutrophils # (A) 7.9 k/uL (1.3-7.7); Neutrophils % (A) 74 %; Platelet Count 239 k/uL (150-450); RBC 4.44 m/uL (4.30-5.90); WBC 10.7 k/uL (3.8-10.6)
[2023-12-03 08:53] LABS: ALT 59 U/L (4-49); AST 50 U/L (17-59); African American GFR (CKD) >90 (>60 ml/min/1.73 sqM); Albumin 3.7 g/dL (3.5-5.0); Alkaline Phosphatase 153 U/L (38-126); Anion Gap 9 mmol/L; Blood Urea Nitrogen 30 mg/dL (9-20); Calcium 9.3 mg/dL (8.4-10.2); Carbon Dioxide 15 mmol/L (22-30); Chloride 118 mmol/L (98-107); Glucose 95 mg/dL (74-99); Magnesium 1.5 mg/dL (1.6-2.3); Non-African American GFR(CKD) >90 (>60 ml/min/1.73 sqM); Phosphorus 2.6 mg/dL (2.5-4.5); Potassium 5.2 mmol/L (3.5-5.1); Sodium 142 mmol/L (137-145); Total Bilirubin 0.6 mg/dL (0.2-1.3); Total Protein 6.5 g/dL (6.3-8.2)
[2023-12-03] MEDS: PANTOPRAZOLE 40 MG TABLET PO SCH (09:00)
[2023-12-03] MEDS: ASPIRIN 81 MG PO SCH (09:00)
[2023-12-03] MEDS: TAMSULOSIN 0.4 MG CAP.ER.24H PO SCH (09:00)
[2023-12-03 11:38] LABS: Glucose,Whole Blood 105 mg/dL (70-110)
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
[2023-12-03] MEDS: DEXTROSE 5% IN WATER 1,000 ML with SODIUM BICARB (1 MEQ/ML) 150 ML IV SCH (13:58)
[2023-12-03] MEDS: amLODIPine 5 MG TAB PO SCH (13:58)
[2023-12-03] MEDS: LORazepam 1 MG TAB PO PRN (16:00)
[2023-12-03] MEDS: NICOTINE 14MG/24HR PATCH TRANSDERM SCH (16:00)
[2023-12-03 16:19] LABS: Glucose,Whole Blood 111 mg/dL (70-110)
[2023-12-03 20:17] LABS: Glucose,Whole Blood 118 mg/dL (70-110)
[2023-12-04] MEDS: LORazepam 2 MG/ML INJ IV STA (01:31)
[2023-12-04 07:06] LABS: Glucose,Whole Blood 108 mg/dL (70-110)
[2023-12-04 11:34] LABS: Glucose,Whole Blood 121 mg/dL (70-110)
--- NOTE | 2023-12-04 11:37 | P.PN ---
Subjective patient is seen for follow-up for acute kidney injury and hyperkalemia. Renal function has improved. Serum creatinine improved to 0.9 yesterday. Labs are pending from today. No significant complaints today. Patient is maintained on IV fluids. Objective - Vital Signs Vital signs: Vital Signs Temp 98.1 F 12/04/23 11:26 Pulse 72 12/04/23 11:26 Resp 20 12/04/23 11:26 BP 145/64 12/04/23 11:26 Pulse Ox 94 L 12/04/23 11:26 FiO2 Intake & Output 12/03/23 12/04/23 12/04/23 18:59 06:59 18:59 Intake Total 720 240 Balance 720 240 Weight 79 kg Intake: Oral 720 240 Other: Voiding Method Bedside Commode Bedside Commode Bedside Commode Urinal Urinal Urinal # Voids 2 2 # Bowel Movements 2 - Exam Patient is awake, comfortable, no acute distress. Answer some questions. Examination of the heart S1 and S2 Examination of the lungs bilateral breath sounds are heard Abdomen is soft nontender Examination of lower extremity shows no edema. [employer] exam shows right hemiparesis. - Labs CBC & Chem 7: 12/03/23 07:57 12/03/23 07:57 Labs: Abnormal Lab Results - Last 24 Hours (Table) 12/03/23 12/03/23 Range/Units 16:17 20:15 POC Glucose (mg/dL) 111 H 118 H (70-110) mg/dL Assessment and Plan Assessment: 1. Hyperkalemia associated with acute kidney injury and use of angiotensin receptor blockers along with LORNA inhibitor's. 2. Acute kidney injury, ATN, nonoliguric. Currently improved with IV hydration. 3. [place] metabolic acidosis associated with acute kidney injury and normal saline administration. 4. Hypomagnesemia secondary to thiazide diuretics 5. Hypertension, uncontrolled, maintained on clonidine. Losartan/hydrochlorothiazide and lisinopril on hold. 6. History of CVA with right hemiparesis 7. Type 2 diabetes maintained on Glucophage Plan: Continue IV fluids. Continue to hold Hyzaar and Zestril. increase amlodipine if blood pressure remains elevated.. continue oral sodium bicarb Repeat labs today and in a.m.
[2023-12-04] MEDS: HYDROcodone/APAP 7.5-325MG 1 EACH TAB PO PRN (12:47)
[2023-12-04 15:35] LABS: Basophils # (A) 0.1 k/uL (0-0.2); Basophils % (A) 1 %; Eosinophils # (A) 0.3 k/uL (0-0.7); Eosinophils % (A) 3 %; HCT 35.4 % (39.0-53.0); HGB 11.9 gm/dL (13.0-17.5); Lymphocytes # (A) 1.4 k/uL (1.0-4.8); Lymphocytes % (A) 17 %; MCH 31.3 pg (25.0-35.0); MCHC 33.7 g/dL (31.0-37.0); MCV 92.7 fL (80.0-100.0); Mean Platelet Volume 7.9; Monocytes # (A) 0.5 k/uL (0-1.0); Monocytes % (A) 6 %; Neutrophils # (A) 5.9 k/uL (1.3-7.7); Neutrophils % (A) 72 %; Platelet Count 205 k/uL (150-450); RBC 3.81 m/uL (4.30-5.90); RDW 15.6 % (11.5-15.5); WBC 8.2 k/uL (3.8-10.6)
[2023-12-04 15:54] LABS: African American GFR (CKD) >90 (>60 ml/min/1.73 sqM); Anion Gap 5 mmol/L; Blood Urea Nitrogen 19 mg/dL (9-20); Calcium 8.6 mg/dL (8.4-10.2); Carbon Dioxide 28 mmol/L (22-30); Chloride 104 mmol/L (98-107); Glucose 124 mg/dL (74-99); Non-African American GFR(CKD) >90 (>60 ml/min/1.73 sqM); Sodium 137 mmol/L (137-145)
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
--- NOTE | 2023-12-04 16:39 | P.PN ---
Subjective Progress Note Date: 12/04/23 58-year-old male patient who looks older than his stated age, history of hypertension, hyperlipidemia, diabetes mellitus type 2, seizure disorder, history of TIA/CVA, traumatic brain injury with short-term memory loss, presents to ED with concern about mental status change; patient is a very poor historian and no family members present in the room at this time; history is as obtained from ER physician Blood work completed in ED reveals WBC of 16.2, hemoglobin of 15 and hematocrit of 46.3 and platelet count of 263, sodium 143, potassium 6.9, BUN/creatinine of 70/2.77, AST elevated at 63, ALT of 55 and alkaline phosphatase of 179 CT of the head cervical and cervical spine completed in ED does not reveal any acute fracture or dislocation in the cervical spine. No acute intracranial hemorrhage, mass effect or midline shift is seen -Patient is being admitted to the hospital for further treatment of acute renal injury and hyperkalemia and for further neurology evaluation 12/04/2023 Patient seen and evaluated with family at bedside; had episodes of confusion and irritability yesterday; patient received Ativan Vital signs are reviewed and remained stable Lab review shows a WBC of 8.2, hemoglobin of 11.9 and platelet count of 205, sodium 137, potassium 494, BUNs/creatinine of 19/0.85 Patient admitted with acute renal injury and hyperkalemia; renal ultrasound has been unremarkable -Patient's family at bedside requesting possible skilled rehab placement; we will consult PT/OT Objective - Vital Signs Vital signs: Vital Signs Temp 98.1 F 12/04/23 11:26 Pulse 72 12/04/23 11:26 Resp 20 12/04/23 11:26 BP 145/64 12/04/23 11:26 Pulse Ox 94 L 12/04/23 11:26 FiO2 Intake & Output 12/03/23 12/04/23 12/04/23 18:59 06:59 18:59 Intake Total 720 240 Balance 720 240 Weight 79 kg Intake: Oral 720 240 Other: Voiding Method Bedside Commode Bedside Commode Bedside Commode Urinal Urinal Urinal # Voids 2 2 # Bowel Movements 2 - Exam Head exam: Present: atraumatic, normocephalic, normal inspection Eye exam: Present: normal appearance, PERRL, EOMI. ENT exam: Present: normal exam, mucous membranes moist Neck exam: Present: normal inspection. Absent: tenderness, meningismus, lymphadenopathy Respiratory exam: Present: normal lung sounds bilaterally. Absent: respiratory distress, wheezes, rales, rhonchi, stridor Cardiovascular Exam: Present: regular rate, normal rhythm, normal heart sounds. Absent: systolic murmur, diastolic murmur, rubs, gallop, clicks GI/Abdominal exam: Present: soft, normal bowel sounds. Absent: distended, tenderness, guarding, rebound, rigid Extremities exam: Present: normal inspection, full ROM, normal capillary refill. Absent: tenderness, pedal edema, joint swelling, calf tenderness Back exam: Present: normal inspection Neurological exam: Present: alert, CN II-XII intact Psychiatric exam: Present: normal affect, normal mood Skin exam: Present: warm, dry, intact, normal color. Absent: rash - Labs CBC & Chem 7: 12/04/23 14:58 12/04/23 14:58 Labs: Abnormal Lab Results - Last 24 Hours (Table) 12/03/23 12/04/23 12/04/23 Range/Units 20:15 11:32 14:58 RBC (4.30-5.90) m/uL Hgb (13.0-17.5) gm/dL Hct (39.0-53.0) % RDW (11.5-15.5) % Glucose 124 H (74-99) mg/dL POC Glucose (mg/dL) 118 H 121 H (70-110) mg/dL 12/04/23 Range/Units 14:58 RBC 3.81 L (4.30-5.90) m/uL Hgb 11.9 L (13.0-17.5) gm/dL Hct 35.4 L (39.0-53.0) % RDW 15.6 H (11.5-15.5) % Glucose (74-99) mg/dL POC Glucose (mg/dL) (70-110) mg/dL Assessment and Plan Assessment: 1. Acute renal injury; and is placed on slow IV fluid hydration in form of normal saline at rate of 75 cc an hour; monitor status, daily weights, renal function electrolytes; avoid nephrotoxins and hypotension 2. Hyperkalemia; related to KIN; patient had hyperkalemia cocktail in the ED; monitor renal function closely and make further recommendations 3. Altered mental status likely metabolic encephalopathy related to renal injury and hyperkalemia 4. Transaminitis; etiology unclear; could be related to antiseizure medications 5. Hypertension; losartan/hydrochlorothiazide 100-25 mg daily, clonidine 0.1 mg 3 times daily 6. Hyperlipidemia; Lipitor 40 mg p.o. nightly 7. Diabetes mellitus type 2/neuropathy; currently takes Lipitor 5 mg twice daily which will be placed on hold; Accu-Cheks before every meal and at bedtime with insulin sliding scale; continue with home dose of Neurontin 8. Seizure disorder; patient takes Keppra 1500 mg twice daily, Neurontin 400 mg 3 times daily 9. Hyperuricemia/gout; allopurinol 100 mg daily VT prophylaxis; SCDs/subcu heparin Code status; full code
[2023-12-04 16:48] LABS: Glucose,Whole Blood 146 mg/dL (70-110)
[2023-12-04 17:00] LABS: Potassium 3.9 mmol/L (3.5-5.1)
[2023-12-04 19:38] LABS: Glucose,Whole Blood 146 mg/dL (70-110)
[2023-12-05 05:46] LABS: Glucose,Whole Blood 111 mg/dL (70-110)
[2023-12-05 08:02] LABS: Basophils # (A) 0.1 k/uL (0-0.2); Basophils % (A) 1 %; Eosinophils # (A) 0.3 k/uL (0-0.7); Eosinophils % (A) 4 %; HCT 37.1 % (39.0-53.0); HGB 12.5 gm/dL (13.0-17.5); Lymphocytes # (A) 1.3 k/uL (1.0-4.8); Lymphocytes % (A) 18 %; MCH 31.1 pg (25.0-35.0); MCHC 33.7 g/dL (31.0-37.0); MCV 92.5 fL (80.0-100.0); Mean Platelet Volume 8.7; Monocytes # (A) 0.4 k/uL (0-1.0); Monocytes % (A) 6 %; Neutrophils # (A) 4.9 k/uL (1.3-7.7); Neutrophils % (A) 70 %; Platelet Count 204 k/uL (150-450); RBC 4.01 m/uL (4.30-5.90); RDW 15.8 % (11.5-15.5)
[2023-12-05 08:12] LABS: African American GFR (CKD) >90 (>60 ml/min/1.73 sqM); Anion Gap 4 mmol/L; Blood Urea Nitrogen 16 mg/dL (9-20); Calcium 8.5 mg/dL (8.4-10.2); Carbon Dioxide 33 mmol/L (22-30); Chloride 103 mmol/L (98-107); Glucose 102 mg/dL (74-99); Non-African American GFR(CKD) >90 (>60 ml/min/1.73 sqM); Potassium 3.6 mmol/L (3.5-5.1); Sodium 140 mmol/L (137-145)
--- NOTE | 2023-12-05 10:56 | P.PN ---
Subjective 58-year-old male patient who looks older than his stated age, history of hypertension, hyperlipidemia, diabetes mellitus type 2, seizure disorder, h istory of TIA/CVA, traumatic brain injury with short-term memory loss, presents to ED with concern about mental status change; patient is a very poor historian and no family members present in the room at this time; history is as obtained from ER physician Blood work completed in ED reveals WBC of 16.2, hemoglobin of 15 and hematocrit of 46.3 and platelet count of 263, sodium 143, potassium 6.9, BUN/creatinine of 70/2.77, AST elevated at 63, ALT of 55 and alkaline phosphatase of 179 CT of the head cervical and cervical spine completed in ED does not reveal any acute fracture or dislocation in the cervical spine. No acute intracranial hemorrhage, mass effect or midline shift is seen -Patient is being admitted to the hospital for further treatment of acute renal injury and hyperkalemia and for further neurology evaluation 12/04/2023 Patient seen and evaluated with family at bedside; had episodes of confusion and irritability yesterday; patient received Ativan Vital signs are reviewed and remained stable Lab review shows a WBC of 8.2, hemoglobin of 11.9 and platelet count of 205, sodium 137, potassium 494, BUNs/creatinine of 19/0.85 Patient admitted with acute renal injury and hyperkalemia; renal ultrasound has been unremarkable -Patient's family at bedside requesting possible skilled rehab placement; we will consult PT/OT 12/05/23 patient is awake sitting up in a chair, he is poor historian, he barely answers with 1 or 2 words, he told me only 1 thing " go home" Patient looks like he has history of CBI, and he says at home and monitor it with family via cameras as per staff Patient presents with signs symptoms of acute kidney injury which is now with improved creatinine down to 0.7-0.8, confirmed today. 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 [id number] CAROL with Sodium Bicarb (1 Meq/ml) 150 ml Rx#:[id number] Oral 420 Output: Urine 600 Other: Voiding Method Bedside Commode Bedside Commode Bedside Commode Urinal Urinal Urinal - Exam -GENERAL: The patient is awake alert, not answering questions appropriately , not in any acute distress. Well developed, well nourished. HEENT: Pupils are round and equally reacting to light. EOMI. No scleral icterus. No conjunctival pallor. Normocephalic, atraumatic. No pharyngeal erythema. No thyromegaly. CARDIOVASCULAR: S1 and S2 present. No murmurs, rubs, or gallops. PULMONARY: Chest is clear to auscultation, no wheezing , no crackles. ABDOMEN: Soft, nontender, nondistended, normoactive bowel sounds. No palpable organomegaly. MUSCULOSKELETAL: No joint swelling or deformity. EXTREMITIES: No cyanosis, clubbing, or pedal edema. NEUROLOGICAL: Gross neurological examination did not reveal any focal deficits. SKIN: No rashes. no petechiae. - Labs CBC & Chem 7: 12/05/23 07:15 12/05/23 07:15 Labs: Abnormal Lab Results - Last 24 Hours (Table) 12/04/23 12/04/23 12/04/23 Range/Units 11:32 14:58 14:58 RBC 3.81 L (4.30-5.90) m/uL Hgb 11.9 L (13.0-17.5) gm/dL Hct 35.4 L (39.0-53.0) % RDW 15.6 H (11.5-15.5) % Carbon Dioxide (22-30) mmol/L Glucose 124 H (74-99) mg/dL POC Glucose (mg/dL) 121 H (70-110) mg/dL 12/04/23 12/04/23 12/05/23 Range/Units 16:46 19:37 05:45 RBC (4.30-5.90) m/uL Hgb (13.0-17.5) gm/dL Hct (39.0-53.0) % RDW (11.5-15.5) % Carbon Dioxide (22-30) mmol/L Glucose (74-99) mg/dL POC Glucose (mg/dL) 146 H 146 H 111 H (70-110) mg/dL 12/05/23 12/05/23 Range/Units 07:15 07:15 RBC 4.01 L (4.30-5.90) m/uL Hgb 12.5 L (13.0-17.5) gm/dL Hct 37.1 L (39.0-53.0) % RDW 15.8 H (11.5-15.5) % Carbon Dioxide 33 H (22-30) mmol/L Glucose 102 H (74-99) mg/dL POC Glucose (mg/dL) (70-110) mg/dL Assessment and Plan Assessment: 1. Acute renal injury; and is placed on slow IV fluid hydration in form of normal saline at rate of 75 cc an hour; monitor status, daily weights, renal function electrolytes; avoid nephrotoxins and hypotension 2. Hyperkalemia; related to KIN; patient had hyperkalemia cocktail in the ED; monitor renal function closely and make further recommendations 3. Altered mental status likely metabolic encephalopathy related to renal injury and hyperkalemia. - Vascular dementia related to his ischemic stroke in 2022 , This was complicated with severe anoxic brain injury and encephalopathy in 2022, at that time he was placed on keppra 4. Transaminitis; etiology unclear; could be related to antiseizure medications 5. Hypertension; losartan/hydrochlorothiazide 100-25 mg daily, clonidine 0.1 mg 3 times daily 6. Hyperlipidemia; Lipitor 40 mg p.o. nightly 7. Diabetes mellitus type 2/neuropathy; currently takes Lipitor 5 mg twice daily which will be placed on hold; Accu-Cheks before every meal and at bedtime with insulin sliding scale; continue with home dose of Neurontin 8. Seizure disorder; patient takes Keppra 1500 mg twice daily, Neurontin 400 mg 3 times daily, not sure if has real h/o seizure or keppra was started during his anoxic brain inj and stroke of 2022, currently no active seizure disorder 9. Hyperuricemia/gout; allopurinol 100 mg daily VT prophylaxis; SCDs/subcu heparin Code status; full code
[2023-12-05 11:43] LABS: Glucose,Whole Blood 173 mg/dL (70-110)
--- NOTE | 2023-12-05 14:28 | P.PN ---
Subjective patient is seen for follow-up for acute kidney injury and hyperkalemia. Renal function has improved. Serum creatinine improved to 0.8. No significant complaints today. Patient is maintained on IV fluids. Objective - Vital Signs Vital signs: Vital Signs Temp 97.9 F 12/05/23 08:00 Pulse 71 12/05/23 08:00 Resp 18 12/05/23 08:00 BP 158/84 12/05/23 08:00 Pulse Ox 97 12/05/23 08:00 FiO2 Intake & Output 12/04/23 12/05/23 12/05/23 18:59 06:59 18:59 Intake Total 1380 Output Total 600 Balance 1380 -600 Intake: Intake, IV Titration 960 Amount Dextrose 5% in Water 1, 960 000 ml @ 80 mls/hr IV . [id number] CAROL with Sodium Bicarb (1 Meq/ml) 150 ml Rx#:[id number] Oral 420 Output: Urine 600 Other: Voiding Method Bedside Commode Bedside Commode Bedside Commode Urinal Urinal Urinal - Exam Patient is awake, comfortable, no acute distress. Answer some questions. Examination of the heart S1 and S2 Examination of the lungs bilateral breath sounds are heard Abdomen is soft nontender Examination of lower extremity shows no edema. 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 - Labs CBC & Chem 7: 12/05/23 07:15 12/05/23 07:15 Labs: Abnormal Lab Results - Last 24 Hours (Table) 12/04/23 12/04/23 12/04/23 Range/Units 14:58 14:58 16:46 RBC 3.81 L (4.30-5.90) m/uL Hgb 11.9 L (13.0-17.5) gm/dL Hct 35.4 L (39.0-53.0) % RDW 15.6 H (11.5-15.5) % Carbon Dioxide (22-30) mmol/L Glucose 124 H (74-99) mg/dL POC Glucose (mg/dL) 146 H (70-110) mg/dL 12/04/23 12/05/23 12/05/23 Range/Units 19:37 05:45 07:15 RBC 4.01 L (4.30-5.90) m/uL Hgb 12.5 L (13.0-17.5) gm/dL Hct 37.1 L (39.0-53.0) % RDW 15.8 H (11.5-15.5) % Carbon Dioxide (22-30) mmol/L Glucose (74-99) mg/dL POC Glucose (mg/dL) 146 H 111 H (70-110) mg/dL 12/05/23 12/05/23 Range/Units 07:15 11:42 RBC (4.30-5.90) m/uL Hgb (13.0-17.5) gm/dL Hct (39.0-53.0) % RDW (11.5-15.5) % Carbon Dioxide 33 H (22-30) mmol/L Glucose 102 H (74-99) mg/dL POC Glucose (mg/dL) 173 H (70-110) mg/dL Assessment and Plan Assessment: 1. Hyperkalemia associated with acute kidney injury and use of angiotensin receptor blockers along with LORNA inhibitor's. 2. Acute kidney injury, ATN, nonoliguric. Currently improved, s/p IV hydration. 3. Nongap metabolic acidosis associated with acute kidney injury and normal saline administration. 4. Hypomagnesemia secondary to thiazide diuretics 5. Hypertension, uncontrolled, maintained on clonidine. Losartan/hydrochlorothiazide and lisinopril on hold. 6. History of CVA with right hemiparesis 7. Type 2 diabetes maintained on Glucophage Plan: Discontinue fluids. Continue to hold Hyzaar and Zestril. Avoid combined use of LORNA inhibitor's and angiotensin receptor blockers. Can resume LORNA inhibitors if blood pressure remains elevated after IV fluids are discontinued.
[2023-12-05 17:28] LABS: Glucose,Whole Blood 99 mg/dL (70-110)
[2023-12-06 06:08] LABS: Glucose,Whole Blood 82 mg/dL (70-110)
[2023-12-06 11:26] LABS: Glucose,Whole Blood 208 mg/dL (70-110)
--- NOTE | 2023-12-06 11:40 | P.PN ---
Subjective patient is seen for follow-up for acute kidney injury and hyperkalemia. Renal function has improved. Serum creatinine improved to 0.8. No significant complaints today. Patient is s/p IV fluids. Objective - Vital Signs Vital signs: Vital Signs Temp 98.2 F 12/06/23 08:00 Pulse 54 L 12/06/23 08:00 Resp 16 12/06/23 08:00 BP 154/79 12/06/23 08:00 Pulse Ox 97 12/06/23 08:00 FiO2 Intake & Output 12/05/23 12/06/23 12/06/23 18:59 06:59 18:59 Intake Total 360 Output Total 500 800 Balance 360 -500 -800 Weight 76 kg Intake: Oral 360 Output: Urine 500 800 Other: Voiding Method Bedside Commode Bedside Commode Bedside Commode Urinal Urinal Urinal External Catheter External Catheter # Voids 1 - Exam Patient is awake, comfortable, no acute distress. Answer some questions. Examination of the heart S1 and S2 Examination of the lungs bilateral breath sounds are heard Abdomen is soft nontender Examination of lower extremity shows no edema. 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 - Labs CBC & Chem 7: 12/05/23 07:15 12/05/23 07:15 Labs: Abnormal Lab Results - Last 24 Hours (Table) 12/05/23 12/06/23 Range/Units 11:42 11:24 POC Glucose (mg/dL) 173 H 208 H (70-110) mg/dL Assessment and Plan Assessment: 1. Hyperkalemia associated with acute kidney injury and use of angiotensin receptor blockers along with LORNA inhibitor's. 2. Acute kidney injury, ATN, nonoliguric. Currently improved, s/p IV hydration. 3. Nongap metabolic acidosis associated with acute kidney injury and normal saline administration. 4. Hypomagnesemia secondary to thiazide diuretics 5. Hypertension, uncontrolled, maintained on clonidine. Losartan/hydrochl orothiazide and lisinopril on hold. 6. History of CVA with right hemiparesis 7. Type 2 diabetes maintained on Glucophage Plan: Avoid combined use of LORNA inhibitor's and angiotensin receptor blockers. Can resume LORNA inhibitors if blood pressure remains elevated after IV fluids are discontinued.
--- NOTE | 2023-12-06 11:52 | P.PN ---
Subjective 58-year-old male patient who looks older than his stated age, history of hypertension, hyperlipidemia, diabetes mellitus type 2, seizure disorder, h istory of TIA/CVA, traumatic brain injury with short-term memory loss, presents to ED with concern about mental status change; patient is a very poor historian and no family members present in the room at this time; history is as obtained from ER physician Blood work completed in ED reveals WBC of 16.2, hemoglobin of 15 and hematocrit of 46.3 and platelet count of 263, sodium 143, potassium 6.9, BUN/creatinine of 70/2.77, AST elevated at 63, ALT of 55 and alkaline phosphatase of 179 CT of the head cervical and cervical spine completed in ED does not reveal any acute fracture or dislocation in the cervical spine. No acute intracranial hemorrhage, mass effect or midline shift is seen -Patient is being admitted to the hospital for further treatment of acute renal injury and hyperkalemia and for further neurology evaluation 12/04/2023 Patient seen and evaluated with family at bedside; had episodes of confusion and irritability yesterday; patient received Ativan Vital signs are reviewed and remained stable Lab review shows a WBC of 8.2, hemoglobin of 11.9 and platelet count of 205, sodium 137, potassium 494, BUNs/creatinine of 19/0.85 Patient admitted with acute renal injury and hyperkalemia; renal ultrasound has been unremarkable -Patient's family at bedside requesting possible skilled rehab placement; we will consult PT/OT 12/05/23 patient is awake sitting up in a chair, he is poor historian, he barely answers with 1 or 2 words, he told me only 1 thing " go home" Patient looks like he has history of CBI, and he says at home and monitor it with family via cameras as per staff Patient presents with signs symptoms of acute kidney injury which is now with improved creatinine down to 0.7-0.8, confirmed today. 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 He has legal guardian No specific complaint. No headache dizziness weakness or numbness. He has symmetrical generalized weakness of the lower extremities, evaluated by physical therapy who recommended subacute rehab which is pending Kidney function improved and patient can resume LORNA inhibitor hop worker consulted for placement Objective - Vital Signs Vital signs: Vital Signs Temp 98.2 F 12/06/23 08:00 Pulse 54 L 12/06/23 08:00 Resp 16 12/06/23 08:00 BP 154/79 12/06/23 08:00 Pulse Ox 97 12/06/23 08:00 FiO2 Intake & Output 12/05/23 12/06/23 12/06/23 18:59 06:59 18:59 Intake Total 360 Output Total 500 800 Balance 360 -500 -800 Weight 76 kg Intake: Oral 360 Output: Urine 500 800 Other: Voiding Method Bedside Commode Bedside Commode Bedside Commode Urinal Urinal Urinal External Catheter External Catheter # Voids 1 - Exam -GENERAL: The patient is awake alert, not answering questions appropriately , not in any acute distress. Well developed, well nourished. HEENT: Pupils are round and equally reacting to light. EOMI. No scleral icterus. No conjunctival pallor. Normocephalic, atraumatic. No pharyngeal erythema. No thyromegaly. CARDIOVASCULAR: S1 and S2 present. No murmurs, rubs, or gallops. PULMONARY: Chest is clear to auscultation, no wheezing , no crackles. ABDOMEN: Soft, nontender, nondistended, normoactive bowel sounds. No palpable organomegaly. MUSCULOSKELETAL: No joint swelling or deformity. EXTREMITIES: No cyanosis, clubbing, or pedal edema. NEUROLOGICAL: Gross neurological examination did not reveal any focal deficits. SKIN: No rashes. no petechiae. - Labs CBC & Chem 7: 12/05/23 07:15 12/05/23 07:15 Labs: Abnormal Lab Results - Last 24 Hours (Table) 12/06/23 Range/Units 11:24 POC Glucose (mg/dL) 208 H (70-110) mg/dL Assessment and Plan Assessment: 1. Acute renal injury; and is placed on slow IV fluid hydration in form of normal saline at rate of 75 cc an hour; monitor status, daily weights, renal function electrolytes; avoid nephrotoxins and hypotension -After improvement of kidney function patient losartan/hydrochlorothiazide was resumed -Resume metformin 2. Hyperkalemia; related to KIN; patient had hyperkalemia cocktail in the ED; monitor renal function closely and make further recommendations. Result 3. Altered mental status likely metabolic encephalopathy related to renal injury and hyperkalemia. - Vascular dementia related to his ischemic stroke in 2022 , This was complicated with severe anoxic brain injury and encephalopathy in 2022, at that time he was placed on keppra -He has legal guardian 4. Transaminitis; etiology unclear; could be related to antiseizure medications. Stable 5. Hypertension; losartan/hydrochlorothiazide 100-25 mg daily, clonidine 0.1 mg 3 times daily 6. Hyperlipidemia; Lipitor 40 mg p.o. nightly 7. Diabetes mellitus type 2/neuropathy; currently takes Lipitor 5 mg twice daily which will be placed on hold; Accu-Cheks before every meal and at bedtime with insulin sliding scale; continue with home dose of Neurontin 8. Seizure disorder; patient takes Keppra 1500 mg twice daily, Neurontin 400 mg 3 times daily, not sure if has real h/o seizure or keppra was started during his anoxic brain inj and stroke of 2022, currently no active seizure disorder 9. Hyperuricemia/gout; allopurinol 100 mg daily 10. Generalized weakness -PT/OT evaluated patient, subacute rehab recommended. hop worker consulted VT prophylaxis; SCDs/subcu heparin Code status; full code
[2023-12-06] MEDS: INSULIN ASPART (NovoLOG) 100 UNIT/ML VIAL SQ SCH (12:25)
[2023-12-06] MEDS: GABAPENTIN 400 MG CAP PO SCH (15:43)
[2023-12-06 16:44] LABS: Glucose,Whole Blood 195 mg/dL (70-110)
[2023-12-06] MEDS: metFORMIN 500 MG TAB PO SCH (19:51)
[2023-12-06 20:39] LABS: Glucose,Whole Blood 169 mg/dL (70-110)
[2023-12-07 06:53] LABS: Glucose,Whole Blood 93 mg/dL (70-110)
[2023-12-07] MEDS: LOSARTAN-HCTZ 50-12.5 MG 1 EACH TAB PO SCH (09:11)
[2023-12-07] MEDS: lisinopriL 5 MG TAB PO SCH (09:11)
[2023-12-07 11:35] LABS: Glucose,Whole Blood 100 mg/dL (70-110)
[2023-12-07 11:47] LABS: African American GFR (CKD) >90 (>60 ml/min/1.73 sqM); Anion Gap 5 mmol/L; Blood Urea Nitrogen 17 mg/dL (9-20); Calcium 9.1 mg/dL (8.4-10.2); Carbon Dioxide 26 mmol/L (22-30); Chloride 107 mmol/L (98-107); Glucose 97 mg/dL (74-99); Non-African American GFR(CKD) >90 (>60 ml/min/1.73 sqM); Potassium 3.7 mmol/L (3.5-5.1); Sodium 138 mmol/L (137-145)
--- NOTE | 2023-12-07 13:25 | P.PN ---
Subjective patient is seen for follow-up for acute kidney injury and hyperkalemia. Renal function has improved. Serum creatinine improved to 0.9. No significant complaints today. Patient is s/p IV fluids. Objective - Vital Signs Vital signs: Vital Signs Temp 97.7 F 12/07/23 08:00 Pulse 52 L 12/07/23 11:25 Resp 16 12/07/23 11:25 BP 108/66 12/07/23 11:25 Pulse Ox 95 12/07/23 11:25 FiO2 Intake & Output 12/06/23 12/07/23 12/07/23 18:59 06:59 18:59 Intake Total 120 300 Output Total 800 300 Balance -680 0 Weight 76.6 kg Intake: Oral 120 300 Output: Urine 800 300 Other: Voiding Method Bedside Commode Bedside Commode Toilet Urinal Urinal Urinal External Catheter External Catheter # Voids 2 3 1 - Exam Patient is awake, comfortable, no acute distress. Answer some questions. Examination of the heart S1 and S2 Examination of the lungs bilateral breath sounds are heard Abdomen is soft nontender Examination of lower extremity shows no edema. 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 - Labs CBC & Chem 7: 12/05/23 07:15 12/07/23 10:53 Labs: Abnormal Lab Results - Last 24 Hours (Table) 12/06/23 12/06/23 Range/Units 16:43 20:36 POC Glucose (mg/dL) 195 H 169 H (70-110) mg/dL Assessment and Plan Assessment: 1. Hyperkalemia associated with acute kidney injury and use of angiotensin receptor blockers along with LORNA inhibitor's. 2. Acute kidney injury, ATN, nonoliguric. Currently improved, s/p IV hydration. 3. Nongap metabolic acidosis associated with acute kidney injury and normal saline administration. 4. Hypomagnesemia secondary to thiazide diuretics 5. Hypertension, uncontrolled, maintained on clonidine. Losartan/hydrochloroth iazide and lisinopril on hold. restarted low-dose lisinopril as blood pressure was elevated. 6. History of CVA with right hemiparesis 7. Type 2 diabetes maintained on Glucophage Plan: Avoid combined use of LORNA inhibitor's and angiotensin receptor blockers. okay to continue low-dose LORNA inhibitor's. Clonidine has been discontinued today. Monitor for rebound hypertension.
[2023-12-07 16:40] LABS: Glucose,Whole Blood 149 mg/dL (70-110)
--- NOTE | 2023-12-07 19:18 | P.PN ---
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 No acute intracranial hemorrhage, mass effect or midline shift is seen -Patient is being admitted to the hospital for further treatment of acute renal injury and hyperkalemia and for further neurology evaluation 12/04/2023 Patient seen and evaluated with family at bedside; had episodes of confusion and irritability yesterday; patient received Ativan Vital signs are reviewed and remained stable Lab review shows a WBC of 8.2, hemoglobin of 11.9 and platelet count of 205, sodium 137, potassium 494, BUNs/creatinine of 19/0.85 Patient admitted with acute renal injury and hyperkalemia; renal ultrasound has been unremarkable -Patient's family at bedside requesting possible skilled rehab placement; we will consult PT/OT 12/05/23 patient is awake sitting up in a chair, he is poor historian, he barely answers with 1 or 2 words, he told me only 1 thing " go home" Patient looks like he has history of CBI, and he says at home and monitor it with family via cameras as per staff Patient presents with signs symptoms of acute kidney injury which is now with improved creatinine down to 0.7-0.8, confirmed today. 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 He has legal guardian No specific complaint. No headache dizziness weakness or numbness. 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 Patient remains minimally interactive. No acute complaints. He appears comfortably. Sodium 138, potassium 3.7, BUN 17, creat 0.90. Glucose 149. Hemodynamically stable. Still waiting for rehab auth plan to go to [facility] on discharge. Review of Systems Constitutional: Denied any fatigue denied any fever. Cardio vascular: denied any chest pain, palpitations Gastrointestinal: denied any nausea, vomiting, diarrhea Pulmonary: Denied any shortness of breath cough Neurologic denied any new focal deficits All inpatient medications were reviewed and appropriate changes in these medica tions as dictated in the interval history and assessment and plan PHYSICAL EXAMINATION: GENERAL: The patient is alert and oriented x1, not in any acute distress. Well developed, well nourished. HEENT: Pupils are round and equally reacting to light. EOMI. No scleral icterus. No conjunctival pallor. Normocephalic, atraumatic. No pharyngeal erythema. No thyromegaly. CARDIOVASCULAR: S1 and S2 present. No murmurs, rubs, or gallops. PULMONARY: Chest is clear to auscultation, no wheezing or crackles. ABDOMEN: Soft, nontender, nondistended, normoactive bowel sounds. No palpable organomegaly. MUSCULOSKELETAL: No joint swelling or deformity. EXTREMITIES: No cyanosis, clubbing, or pedal edema. NEUROLOGICAL: Gross neurological examination did not reveal any focal deficits. Diffusely weak SKIN: No rashes. ASssessment and Plan 1. Acute renal injury prerenal improved with normal saline. worsened by use of ARB/Diuretics. -After improvement of kidney function patient losartan/hydrochlorothiazide was resumed -Resume metformin 2. Hyperkalemia; related to KIN; patient had hyperkalemia cocktail in the ED; monitor renal function closely and make further recommendations. Normalized. 3. Altered mental status likely metabolic encephalopathy related to renal injury and hyperkalemia. - Vascular dementia related to his ischemic stroke in 2022 , This was complicated with severe anoxic brain injury and encephalopathy in 2022, at that time he was placed on keppra -He has legal guardian 4. Transaminitis; etiology unclear; could be related to antiseizure medications. Stable 5. Hypertension; losartan/hydrochlorothiazide 100-25 mg daily. Clonidine stopped. 6. Hyperlipidemia; Lipitor 40 mg p.o. nightly 7. Diabetes mellitus type 2/neuropathy; currently takes Lipitor 5 mg twice daily which will be placed on hold; Accu-Cheks before every meal and at bedtime with insulin sliding scale; continue with home dose of Neurontin 8. Seizure disorder; patient takes Keppra 1500 mg twice daily, Neurontin 400 mg 3 times daily, not sure if has real h/o seizure or keppra was started during his anoxic brain inj and stroke of 2022, currently no active seizure disorder 9. Hyperuricemia/gout; allopurinol 100 mg daily 10. Generalized weakness -PT/OT evaluated patient, subacute rehab recommended. 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 [place] prophylaxis; SCDs/subcu heparin Code status; full code The impression and plan of care has been dictated by Shilpa Hou, Nurse Practitioner as directed. Dr. Kymberly MD I have performed a history and physical examination and medical decision making of this patient, discussed the same with the dictator, and agree with the dictators assessment and plan as written, documented as a scribe. Based on total visit time, I have performed more than 50% of this visit.. Objective - Vital Signs Vital signs: Vital Signs Temp 98.1 F 12/07/23 15:18 Pulse 56 L 12/07/23 15:18 Resp 16 12/07/23 15:18 BP 108/70 12/07/23 15:18 Pulse Ox 93 L 12/07/23 15:18 FiO2 Intake & Output 12/06/23 12/07/23 12/07/23 18:59 06:59 18:59 Intake Total 120 300 Output Total 800 300 Balance -680 0 Weight 76.6 kg Intake: Oral 120 300 Output: Urine 800 300 Other: Voiding Method Bedside Commode Bedside Commode Toilet Urinal Urinal Urinal External Catheter External Catheter # Voids 2 3 1 - Labs CBC & Chem 7: 12/05/23 07:15 12/07/23 10:53 Labs: Abnormal Lab Results - Last 24 Hours (Table) 12/06/23 12/06/23 Range/Units 16:43 20:36 POC Glucose (mg/dL) 195 H 169 H (70-110) mg/dL Assessment and Plan Time with Patient: Less than 30
[2023-12-07 20:22] LABS: Glucose,Whole Blood 138 mg/dL (70-110)
[2023-12-08 06:13] LABS: Glucose,Whole Blood 114 mg/dL (70-110)
[2023-12-08 11:32] LABS: Glucose,Whole Blood 94 mg/dL (70-110)
[2023-12-08 11:53] VITALS: BMI 28.0
--- NOTE | 2023-12-08 12:52 | P.DS ---
Providers Date of admission: 12/02/23 14:46 Attending physician: Nikki Plasencia Consults: 12/02/23 14:45 Consult Physician Routine Consulting Provider: Jagdeep Marroquin Consult Reason/Comments: kin Do you want consulting provider notified?: Yes Primary care physician: Burt Gill Hospital Course: Final Diagnosis Acute renal injury prerenal improved with hydration Hyperkalemia from the KIN Altered mental status likely metabolic encephalopathy related to renal injury and hyperkalemia History of vascular dementia related to an ischemic stroke in 2022 complicated by an anoxic brain injury and encephalopathy Transaminitis unclear etiology could be from seizure medication Hypertension Hyperlipidemia Diabetes mellitus type 2 and diabetic neuropathy Seizure disorder Hyperuricemia/gout Generalized weakness Discharge Disposition Stable for discharge to subacute rehab. Patient to follow-up with nephrology outpatient in 1 to 2 weeks. He will discharge on a small dose of lisinopril as well as amlodipine and would recommend to repeat blood work in 2 to 3 days to monitor electrolytes and renal function. Hospital Course Patient is a 58-year-old male who came in with concern for altered mental status changes does have a legal guardian. He has been having episodes of confusion and irritability. Patient family was requesting skilled rehab facility due to increased weakness. 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 He usually lives at home with family and they have cameras and mon itor him closely. On admission he was found to have elevated LFTs a white count of 16.2 a BUN of 70 and a creatinine of 2.77 as well as a potassium of 6.9. Patient was admitted to the hospital with a consult placed to nephrology secondary to the renal injury. He also had a CT of the head and cervical spine which did not show any acute fracture or dislocation and no acute intracranial hemorrhage mass effect or midline shift. Patient is maintained on hydrochlorothiazide/losartan combination pill outpatient and this was discontinued. He was started on IV fluids and his renal function has now normalized and creatinine is most recently at 0.7. His leukocytosis has resolved as well. He has a stable hemoglobin. Nephrology has started the patient on a low-dose of lisinopril as well as amlodipine and he will remain off of the losartan hydrochlorothiazide combination on discharge. Patient was recommended by PT for discharge to subacute rehab. He is minimally interactive eval simple commands answers in 1-2 word sentences he is a poor historian he does not report any acute complaints at this time his lungs are clear S1-S2 auscultated abdomen is soft and nontender. He does appear older than his stated age however he is resting in bed pleasant and we are currently pending authorization for discharge to subacute rehab medically he is stable for discharge. Please see medication reconciliation for a list of current medications. Thank you for allowing us to participate in the care of this patient. The impression and plan of care has been dictated by Shilpa Hou, Nurse Practitioner as directed. Dr. Kymberly MD I have performed a history and physical examination and medical decision making of this patient, discussed the same with the dictator, and agree with the dictators assessment and plan as written, documented as a scribe. Based on total visit time, I have performed more than 50% of this visit. Patient Condition at Discharge: Fair Plan - Discharge Summary New Discharge Prescriptions: New Nicotine 14Mg/24Hr Patch [Habitrol] 1 patch TRANSDERM DAILY patch amLODIPine [Norvasc] 5 mg PO DAILY tab lisinopriL [Zestril] 5 mg PO DAILY tab Continue Cyclobenzaprine [Flexeril] 5 mg PO TID PRN PRN Reason: Muscle Spasm Sertraline [Zoloft] 75 mg PO HS levETIRAcetam [Keppra] 1,500 mg PO BID QUEtiapine FUMARATE [SEROquel] 25 mg PO BID Pantoprazole [Protonix] 40 mg PO DAILY Ergocalciferol (Vitamin D2) [Drisdol (50,000 Iu)] 1,250 mcg PO SA Aspirin EC [Ecotrin Low Dose] 81 mg PO DAILY lisinopriL [Zestril] 20 mg PO DAILY Gabapentin [Neurontin] 400 mg PO TID #6 cap Atorvastatin Calcium [Lipitor] 40 mg PO HS allopurinoL [Zyloprim] 100 mg PO DAILY metFORMIN HCL [Glucophage] 500 mg PO BID QUEtiapine [SEROquel] 100 mg PO HS Tamsulosin HCl [Flomax] 0.4 mg PO DAILY Changed HYDROcodone/APAP 7.5-325MG [[place] 7.5-325] 1 tab PO TID PRN #6 tab PRN Reason: Pain Discontinued cloNIDine HCL [Catapres] 0.1 mg PO TID Temazepam 30 mg PO HS Losartan/Hydrochlorothiazide [Hyzaar 100-25 Tablet] 1 tab PO DAILY Discharge Medication List Atorvastatin Calcium [Lipitor] 40 mg PO HS 09/28/22 [History] Cyclobenzaprine [Flexeril] 5 mg PO TID PRN 09/28/22 [History] Sertraline [Zoloft] 75 mg PO HS 09/28/22 [History] allopurinoL [Zyloprim] 100 mg PO DAILY 09/28/22 [History] QUEtiapine [SEROquel] 100 mg PO HS 11/25/22 [History] levETIRAcetam [Keppra] 1,500 mg PO BID 11/25/22 [History] metFORMIN HCL [Glucophage] 500 mg PO BID 11/25/22 [History] Aspirin EC [Ecotrin Low Dose] 81 mg PO DAILY 12/02/23 [History] Ergocalciferol (Vitamin D2) [Drisdol (50,000 Iu)] 1,250 mcg PO SA 12/02/23 [History] Pantoprazole [Protonix] 40 mg PO DAILY 12/02/23 [History] QUEtiapine FUMARATE [SEROquel] 25 mg PO BID 12/02/23 [History] Tamsulosin HCl [Flomax] 0.4 mg PO DAILY 12/02/23 [History] lisinopriL [Zestril] 20 mg PO DAILY 12/02/23 [History] Gabapentin [Neurontin] 400 mg PO TID #6 cap 12/08/23 [Rx] HYDROcodone/APAP 7.5-325MG [[place] 7.5-325] 1 tab PO TID PRN #6 tab 12/08/23 [Rx] Nicotine 14Mg/24Hr Patch [Habitrol] 1 patch TRANSDERM DAILY patch 12/08/23 [Rx] amLODIPine [Norvasc] 5 mg PO DAILY tab 12/08/23 [Rx] lisinopriL [Zestril] 5 mg PO DAILY tab 12/08/23 [Rx] Follow up Appointment(s)/Referral(s): Burt Gill MD [Primary Care Provider] - 1-2 days Rohini Rodriguez MD [STAFF PHYSICIAN] - 1 Week Ambulatory/Diagnostic Orders: Basic Metabolic Panel [LAB.AMB] Time Frame: 4 Days, Location: None Selected Discharge Disposition: TRANSFER TO SNF/ECF
[2023-12-08 17:16] LABS: Glucose,Whole Blood 96 mg/dL (70-110)
[2023-12-08 20:19] LABS: Glucose,Whole Blood 117 mg/dL (70-110)
[2023-12-09 06:07] LABS: Glucose,Whole Blood 126 mg/dL (70-110)
[2023-12-09 11:05] LABS: African American GFR (CKD) 71 (>60 ml/min/1.73 sqM); Anion Gap 9 mmol/L; Blood Urea Nitrogen 28 mg/dL (9-20); Calcium 9.5 mg/dL (8.4-10.2); Carbon Dioxide 26 mmol/L (22-30); Chloride 103 mmol/L (98-107); Glucose 123 mg/dL (74-99); Non-African American GFR(CKD) 61 (>60 ml/min/1.73 sqM); Potassium 3.7 mmol/L (3.5-5.1); Sodium 138 mmol/L (137-145)
[2023-12-09 11:42] LABS: Glucose,Whole Blood 98 mg/dL (70-110)
--- NOTE | 2023-12-09 13:53 | P.PN ---
Subjective patient is seen for follow-up for acute kidney injury and hyperkalemia. Renal function has improved. Serum creatinine improved to 0.9. today it is at 1.2 No significant complaints today. Patient is s/p IV fluids. Objective - Vital Signs Vital signs: Vital Signs Temp 97.5 F L 12/09/23 03:50 Pulse 78 12/09/23 08:00 Resp 18 12/09/23 08:00 BP 116/55 12/09/23 08:00 Pulse Ox 97 12/09/23 08:00 FiO2 Intake & Output 12/08/23 12/09/23 12/09/23 18:59 06:59 18:59 Intake Total 720 Output Total 240 Balance 720 -240 Weight 76.3 kg 76.3 kg Intake: Oral 720 Output: Urine 240 Other: Voiding Method Toilet Toilet Toilet Urinal Urinal Urinal # Voids 3 - Exam Patient is sleeping, arousable, comfortable, no acute distress. Examination of lower extremity shows no edema. 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 - Labs CBC & Chem 7: 12/05/23 07:15 12/09/23 10:02 Labs: Abnormal Lab Results - Last 24 Hours (Table) 12/08/23 12/09/23 12/09/23 Range/Units 20:18 06:05 10:02 BUN 28 H (9-20) mg/dL Creatinine 1.27 H (0.66-1.25) mg/dL Glucose 123 H (74-99) mg/dL POC Glucose (mg/dL) 117 H 126 H (70-110) mg/dL Assessment and Plan Assessment: 1. Hyperkalemia associated with acute kidney injury and use of angiotensin receptor blockers along with LORNA inhibitor's. 2. Acute kidney injury, ATN, nonoliguric. Currently improved, s/p IV hydration. 3. [place] metabolic acidosis associated with acute kidney injury and normal darren ine administration. 4. Hypomagnesemia secondary to thiazide diuretics 5. Hypertension, uncontrolled, maintained on clonidine. Losartan/hydrochlorothiazide and lisinopril on hold. restarted low-dose lisinopril as blood pressure was elevated. 6. History of CVA with right hemiparesis 7. Type 2 diabetes maintained on Glucophage Plan: Avoid combined use of LORNA inhibitor's and angiotensin receptor blockers. okay to continue low-dose LORNA inhibitor's. repeat labs as outpatient Continue to encourage good oral intake and maintain adequate hydration.
--- NOTE | 2023-12-09 15:34 | P.PN ---
Subjective Progress Note Date: 12/09/23 58-year-old male patient who looks older than his stated age, history of hypertension, hyperlipidemia, diabetes mellitus type 2, seizure disorder, history of TIA/CVA, traumatic brain injury with short-term memory loss, presents to ED with concern about mental status change; patient is a very poor historian and no family members present in the room at this time; history is as obtained from ER physician Blood work completed in ED reveals WBC of 16.2, hemoglobin of 15 and hematocrit of 46.3 and platelet count of 263, sodium 143, potassium 6.9, BUN/creatinine of 70/2.77, AST elevated at 63, ALT of 55 and alkaline phosphatase of 179 CT of the head cervical and cervical spine completed in ED does not reveal any acute fracture or dislocation in the cervical spine. No acute intracranial hemorrhage, mass effect or midline shift is seen -Patient is being admitted to the hospital for further treatment of acute renal injury and hyperkalemia and for further neurology evaluation 12/04/2023 Patient seen and evaluated with family at bedside; had episodes of confusion and irritability yesterday; patient received Ativan Vital signs are reviewed and remained stable Lab review shows a WBC of 8.2, hemoglobin of 11.9 and platelet count of 205, sodium 137, potassium 494, BUNs/creatinine of 19/0.85 Patient admitted with acute renal injury and hyperkalemia; renal ultrasound has been unremarkable -Patient's family at bedside requesting possible skilled rehab placement; we will consult PT/OT 12/05/23 patient is awake sitting up in a chair, he is poor historian, he barely answers with 1 or 2 words, he told me only 1 thing " go home" Patient looks like he has history of CBI, and he says at home and monitor it with family via cameras as per staff Patient presents with signs symptoms of acute kidney injury which is now with improved creatinine down to 0.7-0.8, confirmed today. 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 He has legal guardian No specific complaint. No headache dizziness weakness or numbness. 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 Patient remains minimally interactive. No acute complaints. He appears comfortably. Sodium 138, potassium 3.7, BUN 17, creat 0.90. Glucose 149. Hemodynamically stable. Still waiting for rehab auth plan to go to [facility] on discharge. 12/09/2023 Patient is seen and evaluated today with daughter at the bedside. Initially plan was for patient to discharge to [facility] and has been accepted at [facility] although there are no beds available now today and will likely not occur un tuesday. Per nursing staff patient did not sleep at all last night and daughter reports he takes Restoril every night and has not been receiving. Will add Restoril as needed to the regimen. Encouraged nursing staff to keep the blinds open and frequent reorientation. Patient is afebrile denies chest pain or shortness of breath. Kidney functions within normal limits. Review of Systems Constitutional: Denied any fatigue denied any fever. Cardio vascular: denied any chest pain, palpitations Gastrointestinal: denied any nausea, vomiting, diarrhea Pulmonary: Denied any shortness of breath cough Neurologic denied any new focal deficits, diffusely weak All inpatient medications were reviewed and appropriate changes in these medications as dictated in the interval history and assessment and plan PHYSICAL EXAMINATION: GENERAL: The patient is alert and oriented x1, not in any acute distress. Lethargic although arousable. Well developed, well nourished. Elderly appearing HEENT: Pupils are round and equally reacting to light. EOMI. No scleral icterus. No conjunctival pallor. Normocephalic, atraumatic. No pharyngeal erythema. No thyromegaly. CARDIOVASCULAR: S1 and S2 present. No murmurs, rubs, or gallops. PULMONARY: Diminished breath sounds bilaterally otherwise chest is clear to auscultation, no wheezing or crackles. ABDOMEN: Soft, nontender, nondistended, normoactive bowel sounds. No palpable organomegaly. MUSCULOSKELETAL: No joint swelling or deformity. EXTREMITIES: No cyanosis, clubbing, or pedal edema. NEUROLOGICAL: Gross neurological examination did not reveal any focal deficits. Diffusely weak SKIN: No rashes. Assessment: 1. Acute renal injury prerenal improved with normal saline. worsened by use of ARB/Diuretics. -After improvement of kidney function patient losartan/hydrochlorothiazide was resumed -Resume metformin 2. Hyperkalemia; related to KIN; patient had hyperkalemia cocktail in the ED; monitor renal function closely and make further recommendations. Normalized. 3. Altered mental status likely metabolic encephalopathy related to renal injury and hyperkalemia. - Vascular dementia related to his ischemic stroke in 2022 , This was complicated with severe anoxic brain injury and encephalopathy in 2022, at that time he was placed on keppra -He has legal guardian 4. Transaminitis; etiology unclear; could be related to antiseizure medications. Stable 5. Hypertension; losartan/hydrochlorothiazide 100-25 mg daily. Clonidine stopped. 6. Hyperlipidemia; Lipitor 40 mg p.o. nightly 7. Diabetes mellitus type 2/neuropathy; currently takes Lipitor 5 mg twice daily which will be placed on hold; Accu-Cheks before every meal and at bedtime with insulin sliding scale; continue with home dose of Neurontin 8. Seizure disorder; patient takes Keppra 1500 mg twice daily, Neurontin 400 mg 3 times daily, not sure if has real h/o seizure or keppra was started during his anoxic brain inj and stroke of 2022, currently no active seizure disorder 9. Hyperuricemia/gout; allopurinol 100 mg daily 10. Generalized weakness -PT/OT evaluated patient, subacute rehab recommended. 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 [place] prophylaxis; SCDs/subcu heparin Code status; full code Plan: Patient will continue on current medication regimen and continue monitoring blood sugars along with Accu-Cheks and adjust insulins accordingly Strongly recommend family to be at bedside during waking hours and frequent reorientation and not allowing to nap all day. Restoril resumed for nighttime Case management/social work following as patient was accepted at [facility] although no beds available and may not be available until Tuesday. Daughter at the bedside was updated and is aware. The impression and plan of care has been dictated by Jewell Aggarwal, Nurse Practitioner as directed. Dr. Kymberly MD I have performed a history and physical examination and medical decision making of this patient, discussed the same with the dictator, and agree with the dictators assessment and plan as written, documented as a scribe. Based on total visit time, I have performed more than 50% of this visit.. Objective - Vital Signs Vital signs: Vital Signs Temp 97.5 F L 12/09/23 03:50 Pulse 84 12/09/23 03:50 Resp 18 12/09/23 03:50 BP 132/75 12/09/23 03:50 Pulse Ox 95 12/09/23 03:50 FiO2 Intake & Output 12/08/23 12/09/23 12/09/23 18:59 06:59 18:59 Intake Total 720 Balance 720 Weight 76.3 kg 76.3 kg Intake: Oral 720 Other: Voiding Method Toilet Toilet Urinal Urinal # Voids 3 - Labs CBC & Chem 7: 12/05/23 07:15 12/09/23 10:02 Labs: Abnormal Lab Results - Last 24 Hours (Table) 12/08/23 12/09/23 Range/Units 20:18 06:05 POC Glucose (mg/dL) 117 H 126 H (70-110) mg/dL
[2023-12-09 17:52] LABS: Glucose,Whole Blood 207 mg/dL (70-110)
[2023-12-09 20:03] LABS: Glucose,Whole Blood 128 mg/dL (70-110)
[2023-12-09] MEDS: LORATADINE 10 MG TAB PO SCH (22:04)
[2023-12-10] MEDS ORDERED: TEMAZEPAM 7.5 MG CAP PO PRN (05:15)
[2023-12-10 06:14] LABS: Glucose,Whole Blood 107 mg/dL (70-110)
[2023-12-10 08:42] LABS: African American GFR (CKD) 86 (>60 ml/min/1.73 sqM); Anion Gap 12 mmol/L; Blood Urea Nitrogen 30 mg/dL (9-20); Calcium 9.6 mg/dL (8.4-10.2); Carbon Dioxide 22 mmol/L (22-30); Chloride 105 mmol/L (98-107); Glucose 92 mg/dL (74-99); Non-African American GFR(CKD) 75 (>60 ml/min/1.73 sqM); Sodium 139 mmol/L (137-145)
[2023-12-10 11:50] LABS: Glucose,Whole Blood 190 mg/dL (70-110)
--- NOTE | 2023-12-10 12:43 | P.PN ---
Subjective patient is seen for follow-up for acute kidney injury and hyperkalemia. Renal function has improved. Serum creatinine improved to 1.0 No significant complaints today. Patient is s/p IV fluids. Objective - Vital Signs Vital signs: Vital Signs Temp 97.5 F L 12/10/23 08:04 Pulse 91 12/10/23 11:08 Resp 17 12/10/23 11:08 BP 113/75 12/10/23 11:08 Pulse Ox 94 L 12/10/23 11:08 FiO2 21 12/10/23 08:18 Intake & Output 12/09/23 12/10/23 12/10/23 18:59 06:59 18:59 Intake Total 360 Output Total 240 Balance 120 Weight 75.7 kg Intake: Oral 360 Output: Urine 240 Other: Voiding Method Toilet Toilet Toilet Urinal Urinal Urinal - Exam Patient is sleeping, arousable, comfortable, no acute distress. Examination of lower extremity shows no edema. [employer] exam shows right hemiparesis. - Labs CBC & Chem 7: 12/05/23 07:15 12/10/23 07:29 Labs: Abnormal Lab Results - Last 24 Hours (Table) 12/09/23 12/09/23 12/10/23 Range/Units 17:50 20:01 07:29 BUN 30 H (9-20) mg/dL POC Glucose (mg/dL) 207 H 128 H (70-110) mg/dL 12/10/23 Range/Units 11:49 BUN (9-20) mg/dL POC Glucose (mg/dL) 190 H (70-110) mg/dL Assessment and Plan Assessment: 1. Hyperkalemia associated with acute kidney injury and use of angiotensin receptor blockers along with LORNA inhibitor's. 2. Acute kidney injury, ATN, nonoliguric. Currently improved, s/p IV hydration. 3. Nongap metabolic acidosis associated with acute kidney injury and normal saline administration. 4. Hypomagnesemia secondary to thiazide diuretics 5. Hypertension, uncontrolled, maintained on clonidine. Losartan/hydrochlorothiazide and lisinopril on hold. restarted low-dose lis inopril as blood pressure was elevated. 6. History of CVA with right hemiparesis 7. Type 2 diabetes maintained on Glucophage Plan: Avoid combined use of LORNA inhibitor's and angiotensin receptor blockers. okay to continue low-dose LORNA inhibitor's. repeat labs as outpatient Continue to encourage good oral intake and maintain adequate hydration.
[2023-12-10 16:24] LABS: Glucose,Whole Blood 121 mg/dL (70-110)
--- NOTE | 2023-12-10 17:07 | P.PN ---
Subjective Progress Note Date: 12/10/23 interval History: 58-year-old male patient who looks older than his stated age, history of hypertension, hyperlipidemia, diabetes mellitus type 2, seizure disorder, history of TIA/CVA, traumatic brain injury with short-term memory loss, presents to ED with concern about mental status change; patient is a very poor historian and no family members present in the room at this time; history is as obtained f rom ER physician Blood work completed in ED reveals WBC of 16.2, hemoglobin of 15 and hematocrit of 46.3 and platelet count of 263, sodium 143, potassium 6.9, BUN/creatinine of 70/2.77, AST elevated at 63, ALT of 55 and alkaline phosphatase of 179 CT of the head cervical and cervical spine completed in ED does not reveal any acute fracture or dislocation in the cervical spine. No acute intracranial hemorrhage, mass effect or midline shift is seen -Patient is being admitted to the hospital for further treatment of acute renal injury and hyperkalemia and for further neurology evaluation 12/04/2023 Patient seen and evaluated with family at bedside; had episodes of confusion and irritability yesterday; patient received Ativan Vital signs are reviewed and remained stable Lab review shows a WBC of 8.2, hemoglobin of 11.9 and platelet count of 205, sodium 137, potassium 494, BUNs/creatinine of 19/0.85 Patient admitted with acute renal injury and hyperkalemia; renal ultrasound has been unremarkable -Patient's family at bedside requesting possible skilled rehab placement; we will consult PT/OT 12/05/23 patient is awake sitting up in a chair, he is poor historian, he barely answers with 1 or 2 words, he told me only 1 thing " go home" Patient looks like he has history of CBI, and he says at home and monitor it with family via cameras as per staff Patient presents with signs symptoms of acute kidney injury which is now with improved creatinine down to 0.7-0.8, confirmed today. 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 He has legal guardian No specific complaint. No headache dizziness weakness or numbness. He has symmetrical generalized weakness of the lower extremities, evaluated by physical therapy who recommended subacute rehab which is pending Kidney function improved and patient can resume LORNA inhibitor table worker consulted for placement 12/07/2023 Patient is evaluated in follow up today on the medical floor. Patient remains minimally interactive. No acute complaints. He appears comfortably. Sodium 138, potassium 3.7, BUN 17, creat 0.90. Glucose 149. Hemodynamically stable. Still waiting for rehab auth plan to go to [facility] on discharge. 12/09/2023 Patient is seen and evaluated today with daughter at the bedside. Initially plan was for patient to discharge to [facility] and has been accepted at [facility] although there are no beds available now today and will likely not occur until Tuesday. Per nursing staff patient did not sleep at all last night and daughter reports he takes Restoril every night and has not been receiving. Will add Restoril as needed to the regimen. Encouraged nursing staff to keep the blinds open and frequent reorientation. Patient is afebrile denies chest pain or shortness of breath. Kidney functions within normal limits. 12/10/2023--patient was seen and examined today. Drowsy but arousable. Able to tell name, date of , year, president. No issues overnight. Vital stable, remained afebrile. Creatinine improved to 1.08. BUN unremarkable. Assessment and plan: 1. Acute renal injury prerenal improved with normal saline. worsened by use of ARB/Diuretics. -After improvement of kidney function patient lisinopril was resumed -Resume metformin 2. Hyperkalemia; related to KIN; patient had hyperkalemia cocktail in the ED; monitor renal function closely and make further recommendations. Normalized. 3. Altered mental status likely metabolic encephalopathy related to renal injury and hyperkalemia. - Vascular dementia related to his ischemic stroke in 2022 , This was complicated with severe anoxic brain injury and encephalopathy in 2022, at that time he was placed on keppra -He has legal guardian 4. Transaminitis; etiology unclear; could be related to antiseizure medications. Stable 5. Hypertension; losartan/hydrochlorothiazide 100-25 mg daily. Clonidine stopped. 6. Hyperlipidemia; Lipitor 40 mg p.o. nightly 7. Diabetes mellitus type 2/neuropathy; currently takes Lipitor 5 mg twice daily which will be placed on hold; Accu-Cheks before every meal and at bedtime with insulin sliding scale; continue with home dose of Neurontin 8. Seizure disorder; patient takes Keppra 1500 mg twice daily, Neurontin 400 mg 3 times daily, not sure if has real h/o seizure or keppra was started during his anoxic brain inj and stroke of 2022, currently no active seizure disorder 9. Hyperuricemia/gout; allopurinol 100 mg daily 10. Generalized weakness -PT/OT evaluated patient, subacute rehab recommended. table worker consulted currently pending insurance auth for [employer]. VT prophylaxis; SCDs/subcu heparin Code status; full code Plan: Patient will continue on current medication regimen and continue monitoring blood sugars along with Accu-Cheks and adjust insulins accordingly Strongly recommend family to be at bedside during waking hours and frequent reorientation and not allowing to nap all day. Restoril resumed for nighttime Case management/social work following as patient was accepted at [facility] although no beds available and may not be available until Tuesday. Daughter at the bedside was updated and is aware. Disposition: ECF PHYSICAL EXAMINATION: GENERAL: The patient is A&O, NAD HEENT: EOMI, Sclerae anicteric, Moist Mucous membranes Neck: Supple, Non tender, No JVD PULMONARY: Equal breath souds B/L, No wheezing, No crackles. CARDIOVASCULAR: S1, S2 present. No murmurs, rubs, or gallops. ABDOMEN: Soft, nontender, nondistended, normoactive bowel sounds. No guarding or rebound tenderness. MUSCULOSKELETAL: No edema, No cyanosis. No clubbing. Normal ROM. Intact peripheral pulses. EXTREMITIES: No cyanosis, clubbing, or pedal edema. NEUROLOGICAL: CN 2-12 grossly intact. No FND Skin: No Rash REVIEW OF SYSTEMS: CONSTITUTIONAL: No fever or chills. CARDIOVASCULAR: No chest pain, palpitations or syncope. PULMONARY: No shortness of breath, no cough, sore throat. GASTROINTESTINAL: No nausea, vomiting, diarrhea, abdominal pain. : No Dysuria, urgency, frequency. Extremities: No edema. NEUROLOGICAL: No headaches, no weakness, or numbness Dictation was produced using [employer] dictation software. please excuse any grammatical, word or spelling errors. Objective - Vital Signs Vital signs: Vital Signs Temp 97.8 F 12/10/23 16:06 Pulse 93 12/10/23 16:06 Resp 17 12/10/23 16:06 BP 118/74 12/10/23 16:06 Pulse Ox 95 12/10/23 16:06 FiO2 21 12/10/23 08:18 Intake & Output 12/09/23 12/10/23 12/10/23 18:59 06:59 18:59 Intake Total 360 Output Total 240 300 Balance 120 -300 Weight 75.7 kg Intake: Oral 360 Output: Urine 240 300 Other: Voiding Method Toilet Toilet Urinal Urinal Urinal Diaper Incontinent # Voids 2 - Labs CBC & Chem 7: 12/05/23 07:15 12/10/23 07:29 Labs: Abnormal Lab Results - Last 24 Hours (Table) 12/09/23 12/09/23 12/10/23 Range/Units 17:50 20:01 07:29 BUN 30 H (9-20) mg/dL POC Glucose (mg/dL) 207 H 128 H (70-110) mg/dL 12/10/23 12/10/23 Range/Units 11:49 16:22 BUN (9-20) mg/dL POC Glucose (mg/dL) 190 H 121 H (70-110) mg/dL
[2023-12-10 20:10] LABS: Glucose,Whole Blood 134 mg/dL (70-110)
[2023-12-11 05:50] LABS: Glucose,Whole Blood 73 mg/dL (70-110)
[2023-12-11 11:43] LABS: Glucose,Whole Blood 99 mg/dL (70-110)
--- NOTE | 2023-12-11 14:58 | P.PN ---
Subjective Progress Note Date: 12/11/23 interval History: 58-year-old male patient who looks older than his stated age, history of hypertension, hyperlipidemia, diabetes mellitus type 2, seizure disorder, history of TIA/CVA, traumatic brain injury with short-term memory loss, presents to ED with concern about mental status change; patient is a very poor historian and no family members present in the room at this time; history is as obtained f rom ER physician Blood work completed in ED reveals WBC of 16.2, hemoglobin of 15 and hematocrit of 46.3 and platelet count of 263, sodium 143, potassium 6.9, BUN/creatinine of 70/2.77, AST elevated at 63, ALT of 55 and alkaline phosphatase of 179 CT of the head cervical and cervical spine completed in ED does not reveal any acute fracture or dislocation in the cervical spine. No acute intracranial hemorrhage, mass effect or midline shift is seen -Patient is being admitted to the hospital for further treatment of acute renal injury and hyperkalemia and for further neurology evaluation 12/04/2023 Patient seen and evaluated with family at bedside; had episodes of confusion and irritability yesterday; patient received Ativan Vital signs are reviewed and remained stable Lab review shows a WBC of 8.2, hemoglobin of 11.9 and platelet count of 205, sodium 137, potassium 494, BUNs/creatinine of 19/0.85 Patient admitted with acute renal injury and hyperkalemia; renal ultrasound has been unremarkable -Patient's family at bedside requesting possible skilled rehab placement; we will consult PT/OT 12/05/23 patient is awake sitting up in a chair, he is poor historian, he barely answers with 1 or 2 words, he told me only 1 thing " go home" Patient looks like he has history of CBI, and he says at home and monitor it with family via cameras as per staff Patient presents with signs symptoms of acute kidney injury which is now with improved creatinine down to 0.7-0.8, confirmed today. 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 He has legal guardian No specific complaint. No headache dizziness weakness or numbness. He has symmetrical generalized weakness of the lower extremities, evaluated by physical therapy who recommended subacute rehab which is pending Kidney function improved and patient can resume LORNA inhibitor cold storage worker consulted for placement 12/07/2023 Patient is evaluated in follow up today on the medical floor. Patient remains minimally interactive. No acute complaints. He appears comfortably. Sodium 138, potassium 3.7, BUN 17, creat 0.90. Glucose 149. Hemodynamically stable. Still waiting for rehab auth plan to go to [facility] on discharge. 12/09/2023 Patient is seen and evaluated today with daughter at the bedside. Initially plan was for patient to discharge to [facility] and has been accepted at [facility] although there are no beds available now today and will likely not occur until Tuesday. Per nursing staff patient did not sleep at all last night and daughter reports he takes Restoril every night and has not been receiving. Will add Restoril as needed to the regimen. Encouraged nursing staff to keep the blinds open and frequent reorientation. Patient is afebrile denies chest pain or shortness of breath. Kidney functions within normal limits. 12/10/2023--patient was seen and examined today. Drowsy but arousable. Able to tell name, date of , year, president. No issues overnight. Vital stable, remained afebrile. Creatinine improved to 1.08. BUN unremarkable. 12/11/2023--patient was seen and examined today. No issues overnight. Vitals reviewed, unremarkable, afebrile. No new labs. Assessment and plan: 1. Acute renal injury prerenal improved with normal saline. worsened by use of ARB/Diuretics. -After improvement of kidney function patient lisinopril was resumed -Resume metformin 2. Hyperkalemia; related to KIN; patient had hyperkalemia cocktail in the ED; monitor renal function closely and make further recommendations. Normalized. 3. Altered mental status likely metabolic encephalopathy related to renal injury and hyperkalemia. - Vascular dementia related to his ischemic stroke in 2022 , This was complicated with severe anoxic brain injury and encephalopathy in 2022, at that time he was placed on keppra -He has legal guardian 4. Transaminitis; etiology unclear; could be related to antiseizure medication s. Stable 5. Hypertension; losartan/hydrochlorothiazide 100-25 mg daily. Clonidine stopped. 6. Hyperlipidemia; Lipitor 40 mg p.o. nightly 7. Diabetes mellitus type 2/neuropathy; currently takes Lipitor 5 mg twice daily which will be placed on hold; Accu-Cheks before every meal and at bedtime with insulin sliding scale; continue with home dose of Neurontin 8. Seizure disorder; patient takes Keppra 1500 mg twice daily, Neurontin 400 mg 3 times daily, not sure if has real h/o seizure or keppra was started during his anoxic brain inj and stroke of 2022, currently no active seizure disorder 9. Hyperuricemia/gout; allopurinol 100 mg daily 10. Generalized weakness -PT/OT evaluated patient, subacute rehab recommended. cold storage worker consulted currently pending insurance auth for [facility]. VT prophylaxis; SCDs/subcu heparin Code status; full code Plan: Patient will continue on current medication regimen and continue monitoring blood sugars along with Accu-Cheks and adjust insulins accordingly Strongly recommend family to be at bedside during waking hours and frequent reorientation and not allowing to nap all day. Restoril resumed for nighttime Case management/social work following as patient was accepted at [facility] although no beds available and may not be available until Tuesday. Daughter at the bedside was updated and is aware. Disposition: ECF PHYSICAL EXAMINATION: GENERAL: The patient is A&O, NAD HEENT: EOMI, Sclerae anicteric, Moist Mucous membranes Neck: Supple, Non tender, No JVD PULMONARY: Equal breath souds B/L, No wheezing, No crackles. CARDIOVASCULAR: S1, S2 present. No murmurs, rubs, or gallops. ABDOMEN: Soft, nontender, nondistended, normoactive bowel sounds. No guarding or rebound tenderness. MUSCULOSKELETAL: No edema, No cyanosis. No clubbing. Normal ROM. Intact peripheral pulses. EXTREMITIES: No cyanosis, clubbing, or pedal edema. NEUROLOGICAL: CN 2-12 grossly intact. No FND Skin: No Rash REVIEW OF SYSTEMS: CONSTITUTIONAL: No fever or chills. CARDIOVASCULAR: No chest pain, palpitations or syncope. PULMONARY: No shortness of breath, no cough, sore throat. GASTROINTESTINAL: No nausea, vomiting, diarrhea, abdominal pain. : No Dysuria, urgency, frequency. Extremities: No edema. NEUROLOGICAL: No headaches, no weakness, or numbness Dictation was produced using [employer] dictation software. please excuse any g rammatical, word or spelling errors. Objective - Vital Signs Vital signs: Vital Signs Temp 98.1 F 12/11/23 07:59 Pulse 79 12/11/23 07:59 Resp 17 12/11/23 07:59 BP 147/69 12/11/23 07:59 Pulse Ox 96 12/11/23 07:59 FiO2 21 12/10/23 08:18 Intake & Output 12/10/23 12/11/23 12/11/23 18:59 06:59 18:59 Intake Total 120 540 Output Total 300 Balance -180 540 Weight 77.2 kg Intake: Oral 120 540 Output: Urine 300 Other: Voiding Method Urinal Diaper Diaper Incontinent Incontinent # Voids 2 - Labs CBC & Chem 7: 12/05/23 07:15 12/10/23 07:29 Labs: Abnormal Lab Results - Last 24 Hours (Table) 12/10/23 12/10/23 Range/Units 16:22 20:08 POC Glucose (mg/dL) 121 H 134 H (70-110) mg/dL
[2023-12-11 17:08] LABS: Glucose,Whole Blood 130 mg/dL (70-110)
[2023-12-11 20:48] LABS: Glucose,Whole Blood 113 mg/dL (70-110)
[2023-12-11] MEDS: CYCLOBENZAPRINE 5 MG TAB PO PRN (21:25)
[2023-12-12 05:41] LABS: Glucose,Whole Blood 89 mg/dL (70-110)
[2023-12-12 09:07] LABS: ALT 35 U/L (10-49); AST 29 U/L (14-35); Albumin 4.5 g/dL (3.8-4.9); Albumin/Globulin Ratio 1.73 Ratio (1.60-3.17); Alkaline Phosphatase 196 U/L (41-126); BUN/Creat Ratio 29.67 Ratio (12.00-20.00); Blood Urea Nitrogen 35.6 mg/dL (9.0-27.0); Calcium 9.4 mg/dL (8.7-10.3); Carbon Dioxide 20.9 mmol/L (21.6-31.8); Chloride 105 mmol/L (96-109); Globulin 2.6 g/dL (1.6-3.3); Glucose 95 mg/dL (70-110); Potassium 4.4 mmol/L (3.5-5.5); Sodium 140 mmol/L (135-145); Total Bilirubin 0.3 mg/dL (0.3-1.2); Total Protein 7.1 g/dL (6.2-8.2)
[2023-12-12 09:17] VITALS: RESP 16
[2023-12-12 09:44] LABS: Basophils # (A) 0.13 X 10*3/uL (0.00-0.10); Basophils % (A) 1.4 %; Eosinophils # (A) 0.21 X 10*3/uL (0.04-0.35); Eosinophils % (A) 2.3 %; HCT 42.9 % (39.6-50.0); HGB 13.9 g/dL (13.0-17.0); Lymphocytes # (A) 2.31 X 10*3/uL (0.90-5.00); Lymphocytes % (A) 25.6 %; MCH 30.5 pg (27.0-32.0); MCHC 32.4 g/dL (32.0-37.0); MCV 94.1 FL (80.0-97.0); Mean Platelet Volume 11.3 FL (9.5-12.2); Monocytes # (A) 0.91 X 10*3/uL (0.20-1.00); Monocytes % (A) 10.1 %; NRBC Per 100 WBC 0 X 10*3/uL (0.00-0.01); Neutrophils # (A) 5.41 X 10*3/uL (1.80-7.70); Neutrophils % (A) 60.2 %; Platelet Count 262 X 10*3/uL (140-440); RBC 4.56 X 10*6/uL (4.40-5.60); WBC 9.01 X 10*3/uL (4.50-10.00)
[2023-12-12 11:58] LABS: Glucose,Whole Blood 146 mg/dL (70-110)
--- NOTE | 2023-12-12 12:15 | P.PN ---
Subjective Patient is seen for follow-up for acute kidney injury and hyperkalemia. Serum creatinine from 12/09 was 1.0, today 1.2. Patient has no significant complaints today. Patient was previously on IV fluids but since has not been. Objective - Vital Signs Vital signs: Vital Signs Temp 98.3 F 12/12/23 02:00 Pulse 91 12/12/23 02:00 Resp 17 12/11/23 14:17 BP 107/69 12/12/23 02:00 Pulse Ox 94 L 12/12/23 02:00 FiO2 21 12/10/23 08:18 Intake & Output 12/11/23 12/12/23 12/12/23 18:59 06:59 18:59 Weight 59 kg Other: Voiding Method Diaper Incontinent # Voids 3 2 - Exam Patient is sleeping, arousable, comfortable, and in no acute distress. No lower extremity edema noted. [facility] [employer] exam shows right hemiparesis - Labs CBC & Chem 7: 12/12/23 04:40 12/12/23 04:40 Labs: Abnormal Lab Results - Last 24 Hours (Table) 12/11/23 12/11/23 Range/Units 17:07 20:46 POC Glucose (mg/dL) 130 H 113 H (70-110) mg/dL Assessment and Plan Assessment: 1. Hyperkalemia (Resolved) 2. Acute kidney injury, ATN, nonoliguric. Currently improved, s/p IV hydration. 3. Nongap metabolic acidosis a secondary to KIN and metformin use 4. Hypomagnesemia secondary to thiazide diuretics 5. Hypertension, controlled now, restarted low-dose lisinopril 5 mg daily as blood pressure was elevated. 6. History of CVA with right hemiparesis 7. Type 2 diabetes maintained on Glucophage Plan: Avoid combined use of LORNA inhibitor's and angiotensin receptor blockers. Continue lisinopril 5 mg p.o. daily Add 650 mg sodium bicarb daily for nongap metabolic acidosis repeat labs in the a.m. Continue to encourage good oral intake and maintain adequate hydration. I have seen and examined the patient with resident and agree with A&P as written. Potassium normal.
[2023-12-12] MEDS: SODIUM BICARBONATE TAB 650 MG TAB PO SCH (12:23)
--- NOTE | 2023-12-12 13:29 | P.DS ---
Providers Date of admission: 12/02/23 14:46 Dr. Kymberly MD I have performed a history and physical examination and medical decision making of this patient, discussed the same with the the resident, and agree with the assessment and plan as written. I performed brief physical exam. Attending physician: Nikki Plasencia Consults: 12/02/23 14:45 Consult Physician Routine Consulting Provider: Jagdeep Marroquin Consult Reason/Comments: bev Do you want consulting provider notified?: Yes Primary care physician: Burt Gill Hospital Course: Final Diagnosis Acute renal injury prerenal improved with hydration Hyperkalemia from the BEV Altered mental status likely metabolic encephalopathy related to renal injury and hyperkalemia History of vascular dementia related to an ischemic stroke in 2022 complicated by an anoxic brain injury and encephalopathy Transaminitis unclear etiology could be from seizure medication Hypertension Hyperlipidemia Diabetes mellitus type 2 and diabetic neuropathy Seizure disorder Hyperuricemia/gout Generalized weakness Discharge Disposition Stable for discharge to subacute rehab. Patient to follow-up with nephrology outpatient in 1 to 2 weeks. He will discharge on a small dose of lisinopril as well as amlodipine and would recommend to repeat blood work in 2 to 3 days to monitor electrolytes and renal function. Hospital Course Patient is a 58-year-old male who came in with concern for altered mental status changes does have a legal guardian. He has been having episodes of confusion and irritability. Patient family was requesting skilled rehab facility due to increased weakness. 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 He usually lives at home with family and they have cameras and monitor him closely. On admission he was found to have elevated LFTs a white count of 16.2 a BUN of 70 and a creatinine of 2.77 as well as a potassium of 6.9. Patient was admitted to the hospital with a consult placed to nephrology secondary to the renal injury. He also had a CT of the head and cervical spine which did not show any acute fracture or dislocation and no acute intracranial hemorrhage mass effect or midline shift. Patient is maintained on hydrochlorothiazide/losartan combination pill outpatient and this was discontinued. He was started on IV fluids and his renal function has now normalized and creatinine is most recently at 0.7. His leukocytosis has resolved as well. He has a stable hemoglobin. Nephrology has started the patient on a low-dose of lisinopril as well as amlodipine and he will remain off of the losartan hydrochlorothiazide combination on discharge. Patient was recommended by PT for discharge to subacute rehab. He is minimally interactive eval simple commands answers in 1-2 word sentences he is a poor historian he does not report any acute complaints at this time his lungs are clear S1-S2 auscultated abdomen is soft and nontender. He does appear older than his stated age however he is resting in bed pleasant and we are currently pending authorization for discharge to subacute rehab medically he is stable for discharge. Please see medication reconciliation for a list of current medications. Thank you for allowing us to participate in the care of this patient. The impression and plan of care has been dictated by Shilpa Hou, Nurse Practitioner as directed. Dr. Kymberly MD I have performed a history and physical examination and medical decision making of this patient, discussed the same with the dictator, and agree with the dictators assessment and plan as written, documented as a scribe. Based on total visit time, I have performed more than 50% of this visit. Patient Condition at Discharge: Fair Plan - Discharge Summary New Discharge Prescriptions: New Nicotine 14Mg/24Hr Patch [Habitrol] 1 patch TRANSDERM DAILY patch Loratadine [Claritin] 10 mg PO DAILY tab Temazepam [Restoril] 15 mg PO HS PRN 3 Days #3 cap PRN Reason: Insomnia amLODIPine [Norvasc] 5 mg PO DAILY tab lisinopriL [Zestril] 5 mg PO DAILY tab HYDROcodone/APAP 7.5-325MG [[place] 7.5-325] 1 each PO TID PRN #4 tab PRN Reason: Pain LORazepam [Ativan] 1 mg PO Q8HR PRN #4 tab PRN Reason: Agitation Continue Cyclobenzaprine [Flexeril] 5 mg PO TID PRN PRN Reason: Muscle Spasm Sertraline [Zoloft] 75 mg PO HS levETIRAcetam [Keppra] 1,500 mg PO BID QUEtiapine FUMARATE [SEROquel] 25 mg PO BID Pantoprazole [Protonix] 40 mg PO DAILY Ergocalciferol (Vitamin D2) [Drisdol (50,000 Iu)] 1,250 mcg PO SA Aspirin EC [Ecotrin Low Dose] 81 mg PO DAILY Gabapentin [Neurontin] 400 mg PO TID #6 cap Atorvastatin Calcium [Lipitor] 40 mg PO HS allopurinoL [Zyloprim] 100 mg PO DAILY metFORMIN HCL [Glucophage] 500 mg PO BID QUEtiapine [SEROquel] 100 mg PO HS Tamsulosin HCl [Flomax] 0.4 mg PO DAILY Discontinued cloNIDine HCL [Catapres] 0.1 mg PO TID lisinopriL [Zestril] 20 mg PO DAILY HYDROcodone/APAP 7.5-325MG [[place] 7.5-325] 1 tab PO TID PRN PRN Reason: Pain Temazepam 30 mg PO HS Losartan/Hydrochlorothiazide [Hyzaar 100-25 Tablet] 1 tab PO DAILY Discharge Medication List Atorvastatin Calcium [Lipitor] 40 mg PO HS 09/28/22 [History] Cyclobenzaprine [Flexeril] 5 mg PO TID PRN 09/28/22 [History] Sertraline [Zoloft] 75 mg PO HS 09/28/22 [History] allopurinoL [Zyloprim] 100 mg PO DAILY 09/28/22 [History] QUEtiapine [SEROquel] 100 mg PO HS 11/25/22 [History] levETIRAcetam [Keppra] 1,500 mg PO BID 11/25/22 [History] metFORMIN HCL [Glucophage] 500 mg PO BID 11/25/22 [History] Aspirin EC [Ecotrin Low Dose] 81 mg PO DAILY 12/02/23 [History] Ergocalciferol (Vitamin D2) [Drisdol (50,000 Iu)] 1,250 mcg PO SA 12/02/23 [History] Pantoprazole [Protonix] 40 mg PO DAILY 12/02/23 [History] QUEtiapine FUMARATE [SEROquel] 25 mg PO BID 12/02/23 [History] Tamsulosin HCl [Flomax] 0.4 mg PO DAILY 12/02/23 [History] Gabapentin [Neurontin] 400 mg PO TID #6 cap 12/08/23 [Rx] HYDROcodone/APAP 7.5-325MG [[place] 7.5-325] 1 each PO TID PRN #4 tab 12/08/23 [Rx] Nicotine 14Mg/24Hr Patch [Habitrol] 1 patch TRANSDERM DAILY patch 12/08/23 [Rx] amLODIPine [Norvasc] 5 mg PO DAILY tab 12/08/23 [Rx] lisinopriL [Zestril] 5 mg PO DAILY tab 12/08/23 [Rx] LORazepam [Ativan] 1 mg PO Q8HR PRN #4 tab 12/09/23 [Rx] Loratadine [Claritin] 10 mg PO DAILY tab 12/09/23 [Rx] Temazepam [Restoril] 15 mg PO HS PRN 3 Days #3 cap 12/09/23 [Rx] Follow up Appointment(s)/Referral(s): Rohini Rodriguez MD [STAFF PHYSICIAN] - 1 Week Burt Gill MD [Primary Care Provider] - 1-2 days Ambulatory/Diagnostic Orders: Basic Metabolic Panel [LAB.AMB] Time Frame: 4 Days, Location: None Selected Discharge Disposition: TRANSFER TO SNF/ECF
[2023-12-12 15:36] VITALS: BP 107/73; PULSE 99; TEMP 97.7
[2023-12-12 16:43] LABS: Glucose,Whole Blood 138 mg/dL (70-110)
== END 2023-12-12 17:15 | DRG 682 ==
LOC: EC 10:52 → EEVIPCON 10:52 → 3SCARD 14:46 → 4SSUR 12-10 22:18
PROVIDERS: ADMIT Hospitalist; ATTEND Hospitalist
DX: N17.0 Acute kidney failure with tubular necrosis (principal); G93.41 Metabolic encephalopathy; I69.351 Hemiplegia and hemiparesis following cerebral infarction affecting right dominant side; E87.20 Acidosis, unspecified; G93.1 Anoxic brain damage, not elsewhere classified; F01.53 Vascular dementia, unspecified severity, with mood disturbance; T50.2X5A Adverse effect of carbonic-anhydrase inhibitors, benzothiadiazides and other diuretics, initial encounter; M10.9 Gout, unspecified; I10 Essential (primary) hypertension; G40.909 Epilepsy, unspecified, not intractable, without status epilepticus; F32.A Depression, unspecified; E83.42 Hypomagnesemia; E87.5 Hyperkalemia; E11.42 Type 2 diabetes mellitus with diabetic polyneuropathy; E78.5 Hyperlipidemia, unspecified; W18.2XXA Fall in (into) shower or empty bathtub, initial encounter; Y93.E1 Activity, personal bathing and showering; D72.829 Elevated white blood cell count, unspecified; F10.10 Alcohol abuse, uncomplicated; Z79.82 Long term (current) use of aspirin; Z79.84 Long term (current) use of oral hypoglycemic drugs; Z79.899 Other long term (current) drug therapy; Z80.1 Family history of malignant neoplasm of trachea, bronchus and lung; Z91.148 Patient's other noncompliance with medication regimen for other reason
CPT/HCPCS: 36415; 70450; 71045; 72125; 72170; 76770; 80048; 80053; 83605; 83735; 83880; 84100; 84484; 85025; 85610; 85730; 93005; 94640; 94760; 96361; 96374; 96375; 96376; 99285

== ENCOUNTER 2024-02-07 20:52 | Inpatient (IN) | payer MEDICARE, OTHER ==
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
[2024-02-07] MEDS: SODIUM CHLORIDE 0.9% 1,000 ML IV ONE (21:25)
[2024-02-07 21:27] LABS: Glucose,Whole Blood 135 mg/dL (70-110)
[2024-02-07 21:43] LABS: ALT 20 U/L (4-49); AST 23 U/L (17-59); African American GFR (CKD) 61 (>60 ml/min/1.73 sqM); Albumin 3.6 g/dL (3.5-5.0); Alcohol <10 mg/dL; Alkaline Phosphatase 111 U/L (38-126); Anion Gap 5 mmol/L; Blood Urea Nitrogen 22 mg/dL (9-20); Calcium 8.8 mg/dL (8.4-10.2); Carbon Dioxide 22 mmol/L (22-30); Chloride 110 mmol/L (98-107); Creatine Kinase 52 U/L (55-170); Glucose 140 mg/dL (74-99); INR 0.9 (<1.2); Lactic Acid, Venous 1.3 mmol/L (0.7-2.0); Magnesium 1.6 mg/dL (1.6-2.3); Non-African American GFR(CKD) 53 (>60 ml/min/1.73 sqM); Partial Thromboplastin Time 24.4 sec (22.0-30.0); Phosphorus 3.3 mg/dL (2.5-4.5); Prothrombin Time 10.2 sec (10.0-12.5); Sodium 137 mmol/L (137-145); Total Bilirubin 0.4 mg/dL (0.2-1.3)
[2024-02-07 21:46] LABS: Basophils # (A) 0.1 k/uL (0-0.2); Basophils % (A) 1 %; Eosinophils # (A) 0.2 k/uL (0-0.7); Eosinophils % (A) 3 %; HGB 11.9 gm/dL (13.0-17.5); Lymphocytes % (A) 31 %; MCH 32.3 pg (25.0-35.0); MCHC 33.2 g/dL (31.0-37.0); MCV 97.4 fL (80.0-100.0); Mean Platelet Volume 8.9; Monocytes # (A) 0.4 k/uL (0-1.0); Monocytes % (A) 6 %; Neutrophils # (A) 3.5 k/uL (1.3-7.7); Neutrophils % (A) 57 %; Platelet Count 175 k/uL (150-450); RDW 15.6 % (11.5-15.5); WBC 6.2 k/uL (3.8-10.6)
[2024-02-07] MEDS ORDERED: NALOXONE 0.4 MG/ML 1 ML VIAL IV PRN (22:15)
[2024-02-07] MEDS ORDERED: ONDANSETRON 4 MG/2 ML VIAL IVP PRN (22:15)
[2024-02-07] MEDS ORDERED: MORPHINE SULFATE 4 MG/ML SYRINGE IV PRN (22:15)
[2024-02-07] MEDS: SODIUM CHLORIDE 0.9% 1,000 ML IV SCH (22:37)
[2024-02-07] MEDS: SODIUM CHLORIDE 0.9% 1,000 ML IV STA (22:37)
[2024-02-07] MEDS: NALOXONE 0.4 MG/ML 1 ML VIAL IV STA (22:37)
[2024-02-07 23:57] LABS: Amphetamine Screen,Urine Not Detected (NotDetected); Barbiturate Screen,Urine Not Detected (NotDetected); Benzodiazepines Screen,Urine Detected (NotDetected); Cocaine Screen,Urine Not Detected (NotDetected); Methadone Screen, Urine Not Detected (NotDetected); Opiate Screen,Urine Not Detected (NotDetected); Oxycodone Screen, Urine Not Detected (NotDetected); Phencyclidine Screen,Urine Not Detected (NotDetected); Tricyclic Antidepressant,Urine Detected (NotDetected); Urn Cannabinoid Scrn Not Detected (NotDetected)
--- NOTE | 2024-02-08 00:04 | CT ---
EXAM: CT Head Without Intravenous Contrast CLINICAL HISTORY: ITS.REASON CT Reason: ams TECHNIQUE: Axial computed tomography images of the head/brain without intravenous contrast. CTDI is 49.2 mGy and DLP is 1125.4 mGy-cm. This CT exam was performed using one or more of the following dose reduction techniques: automated exposure control, adjustment of the mA and/or kV according to patient size, and/or use of iterative reconstruction technique. COMPARISON: Head CT 12/02/23. FINDINGS: Brain: Moderate scattered areas of chronic infarct left frontal and parieto-occipital lobe, with a small focus in the right subcortical frontal region, stable. No mass effect or acute infarct. No acute hemorrhage. Mild atrophy and chronic white matter disease. Ventricles: No hydrocephalus or midline shift. Bones/joints: No acute finding. Soft tissues: No scalp hematoma. Visualized Sinuses: Clear. Mastoid air cells: No mastoid effusion. IMPRESSION: 1. Mild age-related findings, and multifocal chronic infarct. 2. No acute infarct, bleed, or acute intracranial abnormality, or interval change.
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
[2024-02-08 06:57] LABS: Basophils # (A) 0.1 k/uL (0-0.2); Basophils % (A) 1 %; Eosinophils # (A) 0.2 k/uL (0-0.7); Eosinophils % (A) 3 %; HCT 37.8 % (39.0-53.0); HGB 11.9 gm/dL (13.0-17.5); Hypochromasia Slight; Lymphocytes # (A) 1.7 k/uL (1.0-4.8); Lymphocytes % (A) 33 %; MCH 31.8 pg (25.0-35.0); MCHC 31.6 g/dL (31.0-37.0); MCV 100.8 fL (80.0-100.0); Macrocytosis Slight; Monocytes # (A) 0.4 k/uL (0-1.0); Monocytes % (A) 7 %; Neutrophils # (A) 2.7 k/uL (1.3-7.7); Neutrophils % (A) 53 %; Platelet Count 181 k/uL (150-450); RBC 3.75 m/uL (4.30-5.90); RDW 15.1 % (11.5-15.5)
[2024-02-08 07:07] LABS: ALT 19 U/L (4-49); AST 23 U/L (17-59); African American GFR (CKD) 86 (>60 ml/min/1.73 sqM); Albumin 3.4 g/dL (3.5-5.0); Alkaline Phosphatase 104 U/L (38-126); Anion Gap 7 mmol/L; Blood Urea Nitrogen 18 mg/dL (9-20); Calcium 8.5 mg/dL (8.4-10.2); Carbon Dioxide 17 mmol/L (22-30); Chloride 116 mmol/L (98-107); Glucose 80 mg/dL (74-99); Lipase 37 U/L (23-300); Magnesium 1.6 mg/dL (1.6-2.3); Non-African American GFR(CKD) 74 (>60 ml/min/1.73 sqM); Phosphorus 4.4 mg/dL (2.5-4.5); Potassium 4.5 mmol/L (3.5-5.1); Sodium 140 mmol/L (137-145); Total Bilirubin 0.3 mg/dL (0.2-1.3); Total Protein 5.5 g/dL (6.3-8.2)
[2024-02-08] MEDS ORDERED: HEPARIN SODIUM,PORCINE 5,000 UNIT/ML 1 ML VIAL SQ SCH (08:00)
[2024-02-08] MEDS ORDERED: ACETAMINOPHEN TAB 325 MG TAB PO PRN (08:13)
[2024-02-08 08:16] LABS: Glucose,Whole Blood 106 mg/dL (70-110)
--- NOTE | 2024-02-08 10:40 | US ---
EXAMINATION TYPE: US carotid duplex BILAT DATE OF EXAM: 02/08/2024 COMPARISON: NONE CLINICAL INDICATION: Male, 58 years old with history of CVA workup; CVA workup. Hx stroke. Current sm oker, hypertension, hyperlipidemia, diabetes. Additional History: .... TECHNIQUE: Grayscale, color Doppler and spectral Doppler evaluation of the bilateral carotid systems and vertebral arteries.Indirect Doppler criteria was utilized. FINDINGS: EXAM MEASUREMENTS: RIGHT: Peak Systolic Velocity (PSV) cm/sec ----- Right CCA: 76.0 ----- Right ICA: 115 ----- Right ECA: 99.7 ICA/CCA ratio: 1.51 RIGHT: End Diastole cm/sec ----- Right CCA: 16.6 ----- Right ICA: 26.2 ----- Right ECA: 15.0 LEFT: Peak Systolic Velocity (PSV) cm/sec ----- Left CCA: 91.5 ----- Left ICA: 132 ----- Left ECA: 268 ICA/CCA ratio: 1.44 LEFT: End Diastole cm/sec ----- Left CCA: 22.0 ----- Left ICA: 31.5 ----- Left ECA: 42.5 VERTEBRALS (direction of flow): Right Vertebral: Antegrade Left Vertebral: Antegrade Rhythm: Normal SONG LYRICIST NOTES: Plaque seen within bilateral CCAs, prox left ICA, left ECA, and bulbs. Slightly elevated velocity left ICA. Elevated velocity within left ECA. IMPRESSION: Right: Less than 50% stenosis of the carotid bifurcation. Normal (no stenosis)=ICA PSV < 125 cm/s: ra rebeka < 2.0: ICA EDV<40 cm/s. Left: Less than 50% stenosis of the carotid bifurcation. Normal (no stenosis)=ICA PSV < 125 cm/s: rat io < 2.0: ICA EDV<40 cm/s. Criteria for Assigning % of Stenosis / Diameter reduction (Estimation based on the indirect measurements of the internal carotid artery velocities (ICA PSV). 1. Normal (no stenosis)=ICA PSV < 125 cm/s: ratio < 2.0: ICA EDV<40 cm/s. 2. Less than 50% stenosis=ICA PSV < 125 cm/s: ratio < 2.0: ICA EDV<40 cm/s. 3. 50 to 69% stenosis=ICA PSV of 125 to 230 cm/s: ration 2.0 ? 4.0: ICA EDV 40-100 cm/s. 4. Greater than 70% stenosis to near occlusion= ICA PSV > 230 cm/s: ratio > 4.0: ICA EDV > 100 cm/s. 5. Near occlusion= ICA PSV velocities may be low or undetectable: variable ratio and ICA EDV. 6. Total occlusion=unable to detect flow. [facility], , 02/08/2024 10:38 AM
[2024-02-08] MEDS: ENOXAPARIN 40 MG/0.4 ML SYRINGE SQ SCH (11:10)
[2024-02-08] MEDS: LORATADINE 10 MG TAB PO SCH (11:11)
[2024-02-08] MEDS: TAMSULOSIN 0.4 MG CAP.ER.24H PO SCH (11:11)
[2024-02-08] MEDS: levETIRAcetam 500 MG TAB PO SCH (11:11)
[2024-02-08] MEDS: ASPIRIN 81 MG PO SCH (11:11)
[2024-02-08] MEDS: allopurinoL 100 MG TAB PO SCH (11:11)
[2024-02-08] MEDS: lisinopriL 5 MG TAB PO SCH (11:11)
[2024-02-08] MEDS: PANTOPRAZOLE 40 MG TABLET PO SCH (11:11)
[2024-02-08 12:03] LABS: Glucose,Whole Blood 140 mg/dL (70-110)
[2024-02-08] MEDS: HYDROcodone/APAP 7.5-325MG 1 EACH TAB PO PRN (12:56)
--- NOTE | 2024-02-08 14:51 | XR ---
EXAMINATION TYPE: XR orbit complete bilateral DATE OF EXAM: 02/08/2024 COMPARISON: NONE HISTORY: Pre-MRI orbit TECHNIQUE: 3 views of the orbits are submitted. FINDINGS: Osseous structures intact. Nasal septal deviation. No metallic density overlying the orbits . IMPRESSION: No metallic foreign body overlying the orbits. [facility], , 02/08/2024 2:48 PM
--- NOTE | 2024-02-08 15:20 | MR ---
EXAMINATION TYPE: MR brain wo con DATE OF EXAM: 02/08/2024 3:13 PM COMPARISON: 02/07/2024. CLINICAL INDICATION: Male, 58 years old with history of CVA workup; PHH, Weakness, AMS, evaluate for CVA. TECHNIQUE: Multi planar, multi sequence imaging was performed through the brain including: T1, T2, In version recovery, Diffusion weighted imaging, and gradient echo imaging. No gadolinium was given. FINDINGS: Remote injuries of the left frontal and left parietal regions. There may be of area of rest ricted diffusion within the left parietal region injury seen on a couple slices. The tam-white junctions, ventricular system, basal cisterns appear unremarkable. Scattered foci of high T2 signal intensity are seen within the periventricular white matter. Midline structures show n o abnormality. Diffusion-weighted imaging shows no evidence of restricted diffusion. Hemosiderin depo sition and/or mineralization of the areas of prior infarct in the left parietal region and left later al frontal lobe. The bone marrow signal is within normal limits. Paranasal sinuses and mastoid air cells: No significant paranasal sinus disease. Visualized orbits: Orbital contents are intact. IMPRESSION: 1. Remote injury left frontal and left parietal regions with superimposed couple areas of linear rest ricted diffusion suggesting superimposed acute/subacute CVA within the left parietal region. 2. Nonspecific white matter changes, likely secondary to small vessel ischemic disease. [facility], , 02/08/2024 3:17 PM
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
[2024-02-08 16:49] LABS: Glucose,Whole Blood 102 mg/dL (70-110)
[2024-02-08] MEDS: QUEtiapine 100 MG TAB PO SCH (18:51)
[2024-02-08] MEDS: SERTRALINE 25 MG TAB PO SCH (20:10)
[2024-02-08] MEDS: TEMAZEPAM 15 MG CAP PO SCH (20:10)
[2024-02-08] MEDS: ATORVASTATIN 40 MG TAB PO SCH (20:10)
[2024-02-08 20:11] LABS: Glucose,Whole Blood 116 mg/dL (70-110)
--- NOTE | 2024-02-09 03:23 | EEG ---
ELECTROENCEPHALOGRAM REPORT CLINICAL HISTORY: This is a 58-year-old gentleman with history of stroke, seizure, who presents because of episode of unresponsiveness and confusion. The video EEG is obtained to evaluate for seizure epileptiform activity. RELEVANT MEDICATION: Keppra, gabapentin, Seroquel, Flexeril, and Zoloft. EEG TYPE: This is a routine 21 channel EEG with video using the 10/20 electrode placement system. DESCRIPTION: Wakefulness is obtained. During awake state, the background consists of low voltage of 7 to 7.5 hertz activity. There is no physiological stage 2 sleep architecture. There is no focal slowing. Interictal and ictal is none. ACTIVATION PROCEDURE: Photic stimulation did not evoke a posterior driving response. There is no abnormality during the photic stimulation. Hyperventilation is not performed. CLINICAL INTERPRETATION: This is an abnormal routine EEG. The background slowing is suggestive of mild encephalopathy. There is no focal slowing, epileptiform discharge, or seizure on the EEG. Clinical correlation is recommended. NOLVIA / FRANDY: [id number] / ANGELITO
[2024-02-09 07:05] LABS: Glucose,Whole Blood 97 mg/dL (70-110)
[2024-02-09] MEDS: QUEtiapine 25 MG TAB PO SCH (08:13)
[2024-02-09] MEDS: DIVALPROEX 500 MG TABLET.DR PO SCH (11:59)
[2024-02-09 12:10] LABS: Glucose,Whole Blood 159 mg/dL (70-110)
--- NOTE | 2024-02-09 16:03 | P.PN ---
Subjective Progress Note Date: 02/09/24 58-year-old man with a history of hypertension, hyperlipidemia, type 2 diabetes mellitus, seizure disorder, history of TIA/CVA, traumatic brain injury with short-term memory loss who presented to the emergency department for the evaluation after the patient was found with altered mental status by his dipak geri. She decided to check on him earlier today and found him unresponsive and difficult to arouse at around 7 pm. In the ED he underwent extensive evaluation. BP 85/51, HR 49, T 97.5F, RR 16, 95% on RA. CBC, Coag panel, CMP significant for RBC 3.7, Hg 11.9, Hct 36, Cl 110, BUN 22, Cr 1.44, glu 140. CPK 52. Lipase 3.4. UDS + benzo + TCA. ETOH neg. TSH 2.14. B12 323. Folate 13.4. Brain CT multifocal chronic infarct. EKG sinus bradycardia with first degree AV block. Patient was admitted for further workup and management. Underwent CVA workup. Carotid US showed < 50% carotid stenosis bilaterally. EEG showed mild encephalopathy. MRI brain showed remote injury left frontal + parietal regions with superimposed couple areas of linear restricted diffusion suggesting superimposed acute/subacute CVA within the left parietal region. Patient because increasingly aggressive where security had to be called. According to the daughter this is normal behavior for him since his TBI and CVA. 02/08 Patient was seen and examined. Appears calm at this time. Sitter at bedside. Discussed with Dr. Jones, combination of Keppra and frontal lobe CVA can worsen agitation, will attempt lowering Keppra dose and starting Depakote. General: non toxic, no distress, appears at stated age Derm: warm, dry Head: atraumatic, normocephalic, symmetric Eyes: EOMI, no lid lag, anicteric sclera Mouth: no lip lesion, mucus membranes moist Cardiovascular: Good distal perfusion in all 4 extremities Lungs: Breathing comfortably, no accessory muscle use Neuro: + dysarthria, right facial droop Psych: Alert, oriented, appropriate affect Based on my assessment of this patient, this patient meets a high complexity lev el of care. Acute metabolic encephalopathy: Polypharmacy + h/o frontal lobe CVA. Concerns for seizures though EEG negative. Seizure disorder: Keppra decreased to 1000 mg PO BID and started on Depakote 500 mg PO BID. History of TIA/CVA: Discussed with Dr. Jones, MRI result likely not acute CVA. Continue ASA 81 mg PO QD and Lipitor 40 mg PO QHS. Traumatic brain injury with aggressive tendencies: Continue Seroquel 100 mg PO QHS and 25 mg PO QD. Sitter for safety. Hypertension: Lisinopril 5 mg PO QD. Diabetes mellitus Resolved: KIN CODE STATUS: FULL CODE. DVT Prophylaxis: Lovenox SQ GI Prophylaxis: Protonix Designated medical POA if patient is not able to make medical decisions for themselves: Daughter I have reviewed the following market consultant notes: Neurology note. I have reviewed the results of the following tests: EEG, MRI brain, Carotid US as above. I have ordered the following tests: Echo. I have discussed the care of this patient with the following independent historian: RN. Siegel I have independently interpreted the following test below: I have discussed the management of this patient with the following physician: Dr. Jones Objective - Vital Signs Vital signs: Vital Signs Temp 98.5 F 02/09/24 13:24 Pulse 84 02/09/24 13:24 Resp 17 02/09/24 13:24 BP 163/83 02/09/24 13:24 Pulse Ox 95 02/09/24 13:24 FiO2 Intake & Output 02/08/24 02/09/24 02/09/24 18:59 06:59 18:59 Output Total 800 Balance -800 Weight 81.647 kg Output: Urine 800 Other: Voiding Method External Catheter Toilet Toilet # Voids 2 3 1 - Labs CBC & Chem 7: 02/08/24 05:28 02/08/24 05:28 Labs: Abnormal Lab Results - Last 24 Hours (Table) 02/08/24 02/09/24 Range/Units 20:10 12:09 POC Glucose (mg/dL) 116 H 159 H (70-110) mg/dL
--- NOTE | 2024-02-09 16:38 | P.PN ---
Subjective Progress Note Date: 02/09/24 I am following up with the patient and he is accompanied with his children (daughter and son). It seems earlier the patient was very agitated and restless and seems that he calm down with family is present. Per his family members patient has underlying history of stroke with residual right hemiparesis, a phasia and dysarthria and has severe traumatic brain injury in the past. It seems he has underlying history of seizure and he is on Keppra 1500 mg twice daily and according to the daughter he was found unresponsive but is compliant taking his Keppra 1500 mg twice daily. At baseline patient is agitated and restless. Patient does not follow-up with a neurologist as an outpatient. Currently patient is doing better. Today the patient clarified as well as his children that that he does not drink alcohol any longer this is not new but he continues to smoke. Objective - Vital Signs Vital signs: Vital Signs Temp 98.5 F 02/09/24 13:24 Pulse 84 02/09/24 13:24 Resp 17 02/09/24 13:24 BP 163/83 02/09/24 13:24 Pulse Ox 95 02/09/24 13:24 FiO2 Intake & Output 02/08/24 02/09/24 02/09/24 18:59 06:59 18:59 Output Total 800 Balance -800 Weight 81.647 kg Output: Urine 800 Other: Voiding Method External Catheter Toilet Toilet # Voids 2 3 1 - Exam General: Lying in bed and is not in acute distress. Neuro: The patient is awake alert oriented to self place and time. He is following simple commands. He has expressive aphasia. The pupils are round equal reactive to light. Mild right nasolabial flattening/facial weakness. Positive dysarthria Motor: He has weakness over the right side which is chronic and normal on the left side Some of the work-up during this hospital visit consisted of: CK level is 52, ammonia is 19. Calcium, magnesium and sodium are within normal limits. Urine drug screen is positive for tricyclic antidepressant and benzodiazepine. CT of the head is reported as mild age-related finding and multifocal chronic infarct. No acute infarct, bleed or acute intracranial abnormality or interval change. Reviewed the CT and I agree the patient has old strokes over bilateral hemisphere left more than the right. Carotid duplex is reported as the right less than 50% stenosis of the carotid bifurcation. While the left is less than 50% stenosis of the carotid bifurcation. Routine EEG is abnormal. The Brakel slowing is suggestive of mild encephalopathy. There is no focal slowing, Opti[employer] discharge or seizure on the EEG MRI of the brain: Remote injury left frontal left parietal with superimposed couple area linear diffusion restriction superimposed acute/subacute in the left parietal region. I personally reviewed the MRI and I do not feel the patient has any acute or subacute stroke. Patient has old left hemispheric stroke over the left frontal parietal temporal occipital region. And right frontal. - Labs CBC & Chem 7: 02/08/24 05:28 02/08/24 05:28 Labs: Abnormal Lab Results - Last 24 Hours (Table) 02/08/24 02/09/24 Range/Units 20:10 12:09 POC Glucose (mg/dL) 116 H 159 H (70-110) mg/dL Assessment and Plan Assessment: This is a 58-year-old gentleman who presented emergency department because of altered mental status. It seems that the patient was found unresponsive and he is confused is aggressive Episode of unresponsiveness and I am concerned about breakthrough seizure especially with his old stroke and hx of seizure. MRI Brain is reported as some areas restricted diffusion acute/subacute stroke in left parietal but I do not feel there is acute or subacute stroke. 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 Type 2 diabetes Underlying history of hypertension Hyperlipidemia Aggressive at baseline due to his old stroke/TBI and his Keppra can exacerbate his symptoms especially with hx of bilateral frontal lesion. Polypharmacy Plan: Keppra can cause plaza and irritability and patient has already underlying history of irritability and mood. Therefore I will start tapering Keppra and start him on Depakote in which they can help with mood and has antiseizure benefit. I will start tapering the Keppra from 1500 mg twice daily 1000 mg twice daily and start the patient on Depakote 500 mg twice daily. Within 1 week to go down to Keppra to 500 mg twice daily and go up on Depakote to 750 mg twice daily and within 2 weeks go up to Depakote 2 1 g twice daily and stop Keppra. Was notified about the side effects of Depakote as well as his children and they are okay with starting Depakote. He was notified that it can cause osteoporosis, increased weight gain. Recommend repeat EEG as an outpatient and if negative recommend a prolonged EEG to capture patient's episode. As I stated earlier MRI of the brain I felt there is no acute or subacute stroke and I attempted to contact the radiologist for second opinion but no answer I will reattempt again later. Placed the patient on seizure precautions seizure pads For seizure, to avoid driving for 6 months until seizure-free for the last event, avoid heights, avoid swimming consider or using heavy machinery. Is on aspirin 81 mg daily and Lipitor 40 mg nightly. Will defer the rest of the medical management to primary and other specialist Commend the patient to follow-up with neurologist as an outpatient within 2 weeks. Plan discussed with the patient, his children and primary team. If by tomorrow patient is doing well then patient is cleared from a neurological perspective. Time with Patient: Less than 30
--- NOTE | 2024-02-09 17:12 | CA ---
Transthoracic Echo Report Name: Mitch Marrero Age: 58 Gender: M : 1965 Exam Date: 02/09/2024 14:00 Exam Location: [facility] Ht (in): 67 Wt (lb): 180 Ordering Physician: Robb Ewing MD Attending/Referring Phys: Department Head [employer] Kandice Baca RDCS Procedure CPT: Indications: CVA Cardiac Hx: Technical Quality: Fair Contrast 1: Agitated Saline Total Dose (mL): Contrast 2: Total Dose (mL): MEASUREMENTS (Male / Female) Normal Values 2D ECHO LV Diastolic Diameter PLAX 5.1 cm 4.2 - 5.9 / 3.9 - 5.3 cm LV Systolic Diameter PLAX 4.1 cm IVS Diastolic Thickness 1.3 cm 0.6 - 1.0 / 0.6 - 0.9 cm LVPW Diastolic Thickness 0.9 cm 0.6 - 1.0 / 0.6 - 0.9 cm LV Relative Wall Thickness 0.4 RV Internal Dim ED PLAX 2.4 cm LA Systolic Diameter LX 3.7 cm 3.0 - 4.0 / 2.7 - 3.8 cm LV Diastolic Volume MOD BP 64.9 cm??? 67 - 155 / 56 - 104 cm??? LV Systolic Volume MOD BP 24.5 cm??? 22 - 58 / 19 - 49 cm??? LV Ejection Fraction MOD BP 62.2 % >= 55 % LV Cardiac Index MOD BP 1567.1 cm???/min???m??? LV Diastolic Volume MOD 4C 74.8 cm??? LV Systolic Volume MOD 4C 27.1 cm??? LV Ejection Fraction MOD 4C 63.7 % LV Cardiac Index MOD 4C 1848.3 cm???/min???m??? LV Diastolic Length 4C 7.7 cm LV Systolic Length 4C 6.7 cm LV Diastolic Volume MOD 2C 50.8 cm??? LV Systolic Volume MOD 2C 19.4 cm??? LV Ejection Fraction MOD 2C 61.7 % LV Cardiac Index MOD 2C 1216.0 cm???/min???m??? LV Diastolic Length 2C 6.9 cm LV Systolic Length 2C 5.8 cm LA Volume 44.8 cm??? 18 - 58 / 22 - 52 cm??? LA Volume Index 22.6 cm???/m??? 16 - 28 cm???/m??? M-MODE Aortic Root Diameter MM 3.0 cm LA Systolic Diameter MM 4.3 cm LA Ao Ratio MM 1.4 AV Cusp Separation MM 1.8 cm DOPPLER MV Area PHT 2.6 cm??? Mitral E Point Velocity 53.4 cm/s Mitral A Point Velocity 67.7 cm/s Mitral E to A Ratio 0.8 MV Deceleration Time 288.2 ms TR Peak Velocity 179.3 cm/s TR Peak Gradient 12.9 mmHg FINDINGS Left Ventricle Left ventricular ejection fraction is estimated at 55-60%. Mildly increased septal wall thickness. Normal left ventricular wall motion. Left ventricular cavity size at the upper limits of normal. Right Ventricle Mild right ventricular dilatation. Right ventricular systolic pressure within normal limits. Right Atrium Mild right atrial dilatation. Negative agitated saline bubble study for right to left shunt. Left Atrium Mildly increased left atrial area. Mitral Valve Structurally normal mitral valve. Aortic Valve Trileaflet aortic valve. No aortic stenosis. No aortic regurgitation. Tricuspid Valve Structurally normal tricuspid valve. Mild tricuspid regurgitation. No tricuspid stenosis. Pulmonic Valve Structurally normal pulmonic valve. Trace pulmonic regurgitation. No pulmonic stenosis. Pericardium No pericardial or pleural effusion. Aorta Normal size aortic root and proximal ascending aorta. CONCLUSIONS Normal LV function Negative agitated bubble study Consider transesophageal echo if clinically indicated Previewed by: Dr. Vitaly Parmar MD (Electronically Signed) Final Date: 09 February 2024 17:11
[2024-02-09 17:30] LABS: Glucose,Whole Blood 104 mg/dL (70-110)
[2024-02-09 19:59] LABS: Glucose,Whole Blood 110 mg/dL (70-110)
[2024-02-09] MEDS: levETIRAcetam 500 MG TAB PO SCH (20:52)
[2024-02-10 07:09] LABS: Glucose,Whole Blood 103 mg/dL (70-110)
--- NOTE | 2024-02-10 11:31 | P.DS ---
Providers Date of admission: 02/09/24 10:08 Expected date of discharge: 02/10/24 Attending physician: Chang Rivera MD Consults: 02/07/24 22:15 Consult Physician Routine Consulting Provider: Robbie Jones Consult Reason/Comments: ams Do you want consulting provider notified?: Yes Primary care physician: Burt Bush [facility] Course: 58-year-old man with a history of hypertension, hyperlipidemia, type 2 diabetes mellitus, seizure disorder, history of TIA/CVA, traumatic brain injury with short-term memory loss who presented to the emergency department for the evaluation after the patient was found with altered mental status by his daughter. She decided to check on him earlier today and found him unresponsive and difficult to arouse at around 7 pm. In the ED he underwent extensive evaluation. BP 85/51, HR 49, T 97.5F, RR 16, 95% on RA. CBC, Coag panel, CMP significant for RBC 3.7, Hg 11.9, Hct 36, Cl 110, BUN 22, Cr 1.44, glu 140. CPK 52. Lipase 3.4. UDS + benzo + TCA. ETOH neg. TSH 2.14. B12 323. Folate 13.4. Brain CT multifocal chronic infarct. EKG sinus bradycardia with first degree AV block. Patient was admitted for further workup and management. Underwent CVA workup. Carotid US showed < 50% carotid stenosis bilaterally. EEG showed mild encephalopathy. MRI brain showed remote injury left frontal + parietal regions with superimposed couple areas of linear restricted diffusion suggesting superimposed acute/subacute CVA within the left parietal region. Patient because increasingly aggressive where security had to be called. According to the daughter this is normal behavior for him since his TBI and CVA. 02/08 Patient was seen and examined. Appears calm at this time. Sitter at bedside. Discussed with Dr. Jones, combination of Keppra and frontal lobe CVA can worsen agitation, will attempt lowering Keppra dose and starting Depakote. 02/09 Patient was seen and examined. Daughter at bedside. No longer aggressive. Back to baseline. Discharge Plans: Continue Depakote 500 mg PO BID and Keppra 1000 mg PO BID. Follow up with Neurologist to continue Keppra wean. Continue all home medications. General: non toxic, no distress, appears at stated age Derm: warm, dry Head: atraumatic, normocephalic, symmetric Eyes: EOMI, no lid lag, anicteric sclera Mouth: no lip lesion, mucus membranes moist Cardiovascular: Good distal perfusion in all 4 extremities Lungs: Breathing comfortably, no accessory muscle use Neuro: + dysarthria, right facial droop Psych: Alert, oriented, appropriate affect Discharge Diagnosis: Acute metabolic encephalopathy Seizure disorder History of TIA/CVA Traumatic brain injury with aggressive tendencies Hypertension Diabetes mellitus Resolved: KIN This complex discharge took 35 minutes to complete. Patient Condition at Discharge: Good Plan - Discharge Summary Discharge Rx Participant: No New Discharge Prescriptions: New Divalproex [Depakote] 500 mg PO BID #60 tab levETIRAcetam [Keppra] 1,000 mg PO BID tab Continue Cyclobenzaprine [Flexeril] 5 mg PO TID PRN PRN Reason: Muscle Spasm Sertraline [Zoloft] 75 mg PO HS QUEtiapine FUMARATE [SEROquel] 25 mg PO DAILY Pantoprazole [Protonix] 40 mg PO DAILY Aspirin EC [Ecotrin Low Dose] 81 mg PO DAILY Gabapentin [Neurontin] 400 mg PO TID #6 cap Loratadine [Claritin] 10 mg PO DAILY tab Temazepam [Restoril] 15 mg PO HS Atorvastatin Calcium [Lipitor] 40 mg PO HS allopurinoL [Zyloprim] 100 mg PO DAILY metFORMIN HCL [Glucophage] 500 mg PO BID QUEtiapine [SEROquel] 100 mg PO HS Tamsulosin HCl [Flomax] 0.4 mg PO DAILY lisinopriL [Zestril] 5 mg PO DAILY tab HYDROcodone/APAP 7.5-325MG [[place] 7.5-325] 1 tab PO TID PRN PRN Reason: Pain Discontinued levETIRAcetam [Keppra] 1,500 mg PO BID Discharge Medication List Atorvastatin Calcium [Lipitor] 40 mg PO HS 09/28/22 [History] Cyclobenzaprine [Flexeril] 5 mg PO TID PRN 09/28/22 [History] Sertraline [Zoloft] 75 mg PO HS 09/28/22 [History] allopurinoL [Zyloprim] 100 mg PO DAILY 09/28/22 [History] QUEtiapine [SEROquel] 100 mg PO HS 11/25/22 [History] metFORMIN HCL [Glucophage] 500 mg PO BID 11/25/22 [History] Aspirin EC [Ecotrin Low Dose] 81 mg PO DAILY 12/02/23 [History] Pantoprazole [Protonix] 40 mg PO DAILY 12/02/23 [History] QUEtiapine FUMARATE [SEROquel] 25 mg PO DAILY 12/02/23 [History] Tamsulosin HCl [Flomax] 0.4 mg PO DAILY 12/02/23 [History] Gabapentin [Neurontin] 400 mg PO TID #6 cap 12/08/23 [Rx] lisinopriL [Zestril] 5 mg PO DAILY tab 12/08/23 [Rx] Loratadine [Claritin] 10 mg PO DAILY tab 12/09/23 [Rx] HYDROcodone/APAP 7.5-325MG [[place] 7.5-325] 1 tab PO TID PRN 02/08/24 [History] Temazepam [Restoril] 15 mg PO HS 02/08/24 [History] Divalproex [Depakote] 500 mg PO BID #60 tab 02/10/24 [Rx] levETIRAcetam [Keppra] 1,000 mg PO BID tab 02/10/24 [Rx] Follow up Appointment(s)/Referral(s): Burt Gill MD [Primary Care Provider] - 1-2 days [facility] [NON-STAFF] - 1 Week Clyde Pedraza DO [STAFF PHYSICIAN] - 1 Week Discharge Disposition: HOME SELF-CARE
[2024-02-10 12:18] LABS: Glucose,Whole Blood 111 mg/dL (70-110)
[2024-02-10 13:31] VITALS: BP 164/90; PULSE 82; RESP 20; TEMP 98
== END 2024-02-10 14:37 | disposition home health service (06) | DRG 92 ==
LOC: EC 20:52 → 6NMEDSUR 22:15 → 5NMEDONC 23:09 → OBSVTOIN 02-09 10:08
PROVIDERS: ADMIT Internal Medicine; ATTEND Internal Medicine
DX: G92.8 Other toxic encephalopathy (principal); F02.811 Dementia in other diseases classified elsewhere, unspecified severity, with agitation; I69.351 Hemiplegia and hemiparesis following cerebral infarction affecting right dominant side; N17.9 Acute kidney failure, unspecified; E11.42 Type 2 diabetes mellitus with diabetic polyneuropathy; G40.909 Epilepsy, unspecified, not intractable, without status epilepticus; F01.50 Vascular dementia, unspecified severity, without behavioral disturbance, psychotic disturbance, mood disturbance, and anxiety; I69.320 Aphasia following cerebral infarction; I10 Essential (primary) hypertension; I65.23 Occlusion and stenosis of bilateral carotid arteries; T50.915A Adverse effect of multiple unspecified drugs, medicaments and biological substances, initial encounter; F17.210 Nicotine dependence, cigarettes, uncomplicated; E78.5 Hyperlipidemia, unspecified; R29.810 Facial weakness; R47.1 Dysarthria and anarthria; R41.3 Other amnesia; E86.0 Dehydration; I95.89 Other hypotension; Z87.820 Personal history of traumatic brain injury; Z79.899 Other long term (current) drug therapy; Z79.82 Long term (current) use of aspirin; Z79.84 Long term (current) use of oral hypoglycemic drugs
CPT/HCPCS: 36415; 70200; 70450; 70551; 80053; 80306; 80320; 82140; 82550; 82607; 82746; 83605; 83690; 83735; 84100; 84443; 84484; 85025; 85610; 85730; 93005; 93306; 93880; 95816; 96361; 96374; 99285